=== PATIENT | male | born 1985 | race Caucasian/White ===

== ENCOUNTER 2017-04-29 19:26 | Emergency (ER) | payer MEDICAID ==
[2017-04-29] MEDS ORDERED: Ondansetron 4 MG/2 ML SDV IVPUSH ONE (22:28)
[2017-04-29] MEDS ORDERED: HYDROmorphone 1 MG/ML Syringe IVPUSH ONE ×2 (22:28→23:55)
[2017-04-29] MEDS ORDERED: Sodium Chloride 0.9% 1,000 ML IV SCH (22:30)
[2017-04-29] MEDS ORDERED: cefTRIAXone 1 GM in Sodium Chloride 0.9% 50 ML IV ONE (23:39)
[2017-04-29] MEDS ORDERED: Ketorolac 30 MG/ML SDV IVPUSH ONE (23:55)
--- NOTE | 2017-04-30 00:04 | EDM.PDOC ---
ED HPI GENERAL MEDICAL PROBLEM - General Chief Complaint: Upper Extremity Injury/Pain Stated Complaint: CRUSHED FINGER LT HAND Time Seen by Provider: 04/29/17 22:15 Source of Information: Reports: Patient, Family (father) History Limitations: Reports: No Limitations - History of Present Illness INITIAL COMMENTS - FREE TEXT/NARRATIVE: Left ring finger injury: this is a 31-year-old male presents emergency room with his father, he reports on 04/24/2017 he had a crush injury to the left ring finger, this happened when a part of the internal mechanism of the tire fell crushing the finger. He went to the emergency room had a x-ray which showed a fracture and dislocation of the left ring finger, laceration extensive including tendons, open fracture, and muscle laceration. This was repaired with sutures. And he was discharged to home with antibiotic Cipro by mouth twice a day and Percocet 2 tabs every 4 when necessary pain.. This happened in [place]. His father upon learning of this injury had his son flown back to [place] to receive additional care. Onset: Sudden Onset Date: 04/24/17 Onset Time: 03:00 Duration: Day(s):, Getting Worse (finger now with increased redness, pain, and edema.) Location: Reports: Other (Left ring finger) Left Hand Pain Score (Numeric/FACES): 14 - Related Data Allergies Allergy/AdvReac Type Severity Reaction Status Date / Time meperidine [From Demerol] Allergy Hives Verified 04/29/17 22:12 iv contrast Allergy Anaphylactic Uncoded 04/29/17 22:12 Shock Home Meds: Home Meds Acetaminophen/oxyCODONE [Percocet 325-5 MG] 2 tab PO Q4H PRN 04/29/17 [History] Ciprofloxacin HCl [Cipro] 500 mg PO QID 04/29/17 [History] Ibuprofen 800 mg PO ASDIRECTED PRN 04/29/17 [History] Past Medical History Cardiovascular History: Reports: Arrhythmia, Hypertension Respiratory History: Reports: Pneumothorax Genitourinary History: Reports: Renal Calculus, Other (See Below) Other Genitourinary History: right kidney reconstruction Musculoskeletal History: Reports: Other (See Below) Other Musculoskeletal History: crush injury left hand, boxer fracture right hand Neurological History: Reports: Concussion, Head Trauma, Migraines Psychiatric History: Reports: Anxiety, Depression - Infectious Disease History Infectious Disease History: Reports: Chicken Pox - Past Surgical History GI Surgical History: Reports: Cholecystectomy Male Surgical History: Reports: Renal Calculus, Other (See Below) Other Male Surgeries/Procedures: stents Social & Family History - Tobacco Use Smoking Status *Q: Current Every Day Smoker Years of Tobacco use: 14 Packs/Tins Daily: 0.5 - Caffeine Use Caffeine Use: Reports: Coffee, Soda - Recreational Drug Use Recreational Drug Use: No - Living Situation & Occupation Living situation: Reports: with Family (Lives in [facility] with his Immediate family.) Occupation: Employed Review of Systems - Review of Systems Review Of Systems: See Below Constitutional: Reports: Other (acute pain in the left ring finger) Eyes: Reports: No Symptoms Ears: Reports: No Symptoms Nose: Reports: No Symptoms Mouth/Throat: Reports: No Symptoms Respiratory: Reports: No Symptoms Cardiovascular: Reports: No Symptoms GI/Abdominal: Reports: No Symptoms Genitourinary: Reports: No Symptoms Musculoskeletal: Reports: Other (left ring finger injury, rates pain at 14 out of 10) Skin: Reports: Wound (laceration repair to left ring finger on 04/24/17) Neurological: Reports: No Symptoms Psychiatric: Reports: No Symptoms ED EXAM, GENERAL - Physical Exam Exam: See Below Exam Limited By: No Limitations General Appearance: Alert, WD/WN, Moderate Distress Eye Exam: Bilateral Eye: Normal Inspection Head: Atraumatic, Normocephalic Neck: Supple Respiratory/Chest: No Respiratory Distress Extremities: Other (Left middle finger with status post laceration repair. Finger is stiff, unable to flex finger, sutures intact, very tender to even slight touch, finger is red, dark, discolored) Neurological: Alert, Oriented, Normal Cognition Psychiatric: Normal Affect, Normal Mood Skin Exam: Erythema, Other (status post trauma; red tender to touch edema) Lymphatic: No Adenopathy Course - Vital Signs Last Recorded V/S: Last Vital Signs Temp 36.7 C 04/29/17 22:15 Pulse 77 04/29/17 22:15 Resp 20 04/29/17 22:15 BP 165/110 H 04/29/17 22:15 Pulse Ox 100 04/29/17 22:15 - Orders/Labs/Meds Orders: Active Orders 24 hr Category Date Time Status Hand Comp Min 3V Lt [CR] Stat Exams 04/29/17 22:19 Taken Sodium Chloride 0.9% [Normal Saline] 1,000 ml Med 04/29/17 22:30 Active IV ASDIRECTED Medication Orders Sodium Chloride (Normal Saline) 1,000 mls @ 999 mls/hr IV ASDIRECTED FAISAL Last Admin: 04/29/17 22:56 Dose: 999 mls/hr Labs: Laboratory Tests 04/29/17 04/29/17 Range/Units 22:29 22:29 WBC 12.2 H (4.5-11.0) K/uL RBC 5.16 (4.30-5.90) M/uL Hgb 14.8 (12.0-15.0) g/dL Hct 43.4 (40.0-54.0) % MCV 84 (80-98) fL MCH 29 (27-31) pg MCHC 34 (32-36) % Plt Count 398 (150-400) K/uL Neut % (Auto) 70 H (36-66) % Lymph % (Auto) 21 L (24-44) % Reeves % (Auto) 8 H (2-6) % Eos % (Auto) 1 L (2-4) % Baso % (Auto) 0 (0-1) % Sodium 143 (140-148) mmol/L Potassium 3.4 L (3.6-5.2) mmol/L Chloride 107 (100-108) mmol/L Carbon Dioxide 26 (21-32) mmol/L Anion Gap 13.4 (5.0-14.0) mmol/L BUN 10 (7-18) mg/dL Creatinine 0.9 (0.8-1.3) mg/dL Est Cr Clr Drug Dosing 131.73 mL/min Estimated GFR (MDRD) > 60 (>60) Glucose 98 (74-106) mg/dL Calcium 9.4 (8.5-10.1) mg/dL Meds: Medications Generic Name Dose Route Start Last Admin Trade Name Freq PRN Reason Stop Dose Admin Sodium Chloride 1,000 mls @ 999 mls/hr 04/29/17 22:30 04/29/17 22:56 Normal Saline IV 999 mls/hr ASDIRECTED FAISAL Administration Discontinued Medications Generic Name Dose Route Start Last Admin Trade Name Freq PRN Reason Stop Dose Admin Bacitracin 1 dose 04/30/17 00:27 Bacitracin Oint 1 Gm TOP 04/30/17 00:28 ONETIME ONE Hydromorphone HCl 1 mg 04/29/17 22:28 04/29/17 22:57 Dilaudid IVPUSH 04/29/17 22:29 1 mg ONETIME ONE Administration Hydromorphone HCl 1 mg 04/29/17 23:55 04/30/17 00:10 Dilaudid IVPUSH 04/29/17 23:56 1 mg ONETIME ONE Administration Ceftriaxone Sodium 1 gm/ 50 mls @ 100 mls/hr 04/29/17 23:39 04/29/17 23:46 Sodium Chloride IV 04/30/17 00:08 100 mls/hr ONETIME ONE Administration Ketorolac Tromethamine 30 mg 04/29/17 23:55 04/30/17 00:14 Toradol IVPUSH 04/29/17 23:56 30 mg ONETIME ONE Administration Ondansetron HCl 4 mg 04/29/17 22:28 04/29/17 22:56 Zofran IVPUSH 04/29/17 22:29 4 mg ONETIME ONE Administration - Re-Assessments/Exams Free Text/Narrative Re-Assessment/Exam: X-ray, labs, IV fluids, IV Rocephin, IV pain control Departure - Departure Time of Disposition: 01:04 Disposition: Home, Self-Care 01 Condition: Fair Clinical Impression: Laceration of flexor muscle, fascia and tendon of left ring finger at wrist and hand level, sequela Crushing injury of left hand Qualifiers: Encounter type: subsequent encounter Qualified Code(s): S67.22XD - Crushing injury of left hand, subsequent encounter - Discharge Information Referrals: PCP,None [Primary Care Provider] - Forms: ED Department Discharge Care Plan Goals: subsequent left ring finger injury laceration involving tendons, fascia -injury date 04/24/2017 -Initial care at emergency room in [place], laceration repair At [facility] in [facility] -Rocephin 1 g IV -IV Dilaudid 1 mg x 2 -IV Toradol 30mg -apply bulky dressing -labs; CBC, BMP -Imaging; Xray 3 view of left hand Advise to call [facility] Hand Surgeon in morning for consult and further care discharge to home with Father, home medications; Percocet 5-325mg; 2tabs every 4 to 6 hours as needed for pain #15 - Problem List & Annotations (1) Crushing injury of left hand SNOMED Code(s): 42265098 Code(s): S67.22XA - CRUSHING INJURY OF LEFT HAND, INITIAL ENCOUNTER Status : Acute Priority: High Current Visit: Yes Qualifiers: Encounter type: subsequent encounter Qualified Code(s): S67.22XD - Crushing injury of left hand, subsequent encounter (2) Laceration of flexor muscle, fascia and tendon of left ring finger at wrist and hand level, sequela SNOMED Code(s): 779568207 Code(s): S66.125S - LACERAT FLEXOR MUSC/FASC/TEND L RNG FNGR AT WRS/HND LV, SQLA Status: Acute Priority: High Current Visit: Yes - Problem List Review Problem List Initiated/Reviewed/Updated: Yes - My Orders Last 24 Hours: My Active Orders 04/29/17 22:19 Hand Comp Min 3V Lt [CR] Stat 04/29/17 22:30 Sodium Chloride 0.9% [Normal Saline] 1,000 ml IV ASDIRECTED - Assessment/Plan Last 24 Hours: My Active Orders 04/29/17 22:19 Hand Comp Min 3V Lt [CR] Stat 04/29/17 22:30 Sodium Chloride 0.9% [Normal Saline] 1,000 ml IV ASDIRECTED Plan: subsequent left ring finger injury laceration involving tendons, fascia -injury date 04/24/2017 -Initial care at emergency room in [place], laceration repair At [facility] in [facility] [place] -Rocephin 1 g IV -IV Dilaudid 1 mg x 2 -IV Toradol 30mg -apply bulky dressing -labs; CBC, BMP -Imaging; Xray 3 view of left hand Advise to call [facility] Hand Surgeon in morning for consult and further care discharge to home with Father, home medications; Percocet 5-325mg; 2tabs every 4 to 6 hours as needed for pain #15
[2017-04-30] MEDS ORDERED: Bacitracin Oint 1 GM U/D Packet TOP ONE (00:27)
[2017-04-30] MEDS ORDERED: Acetaminophen/oxyCODONE 325-5 MG Tab PO PRN (01:41)
--- NOTE | 2017-04-30 09:55 | CR ---
Displaced fracture at the fourth distal phalanx extending to the base. Multiple tiny radiodensities a bout the fracture can indicate foreign bodies as well. Third distal phalanx is intact.
== END 2017-04-30 01:40 | disposition home or self-care (01) ==
LOC: JP.ED 19:26
DX: S66.125 Laceration of flexor muscle, fascia and tendon of left ring finger at wrist and hand level (principal); S67.22XD Crushing injury of left hand, subsequent encounter; I10 Essential (primary) hypertension; F17.210 Nicotine dependence, cigarettes, uncomplicated; Z88.8 Allergy status to other drugs, medicaments and biological substances; W23.1XXD Caught, crushed, jammed, or pinched between stationary objects, subsequent encounter
CPT/HCPCS: 36415; 73130; 80048; 85025; 96361; 96365; 96375; 96376; 99284; A9270; J0696; J1170; J1885; J2405; J7040; J7050; 99283

== ENCOUNTER 2017-08-21 16:06 | Emergency (ER) | payer MEDICAID ==
[2017-08-21] MEDS ORDERED: HYDROmorphone 0.5 MG/0.5 ML Syringe IVPUSH ONE (17:29)
[2017-08-21] MEDS ORDERED: Sodium Chloride 0.9% 1,000 ML IV SCH (17:30)
[2017-08-21] MEDS ORDERED: Ondansetron 4 MG/2 ML SDV ONE (17:42)
[2017-08-21] MEDS ORDERED: Ondansetron 4 MG/2 ML SDV IVPUSH ONE (17:43)
--- NOTE | 2017-08-21 17:44 | EDM.PDOC ---
<OfficerRoderick - Last Filed: 08/21/17 20:40> ED HPI GENERAL MEDICAL PROBLEM - General Chief Complaint: General Stated Complaint: DIZZY,CHEST PRESSURE,LEFT ARM PAIN Time Seen by Provider: 08/21/17 20:46 - Related Data Allergies Allergy/AdvReac Type Severity Reaction Status Date / Time meperidine [From Demerol] Allergy Hives Verified 08/21/17 19:35 iv contrast Allergy Anaphylactic Uncoded 08/21/17 19:35 Shock Home Meds: Home Meds Cyanocobalamin (Vitamin B-12) [Vitamin B-12] 1 tab PO DAILY 08/21/17 [History] Gabapentin [Neurontin] 1 tab PO TID 08/21/17 [History] PARoxetine HCl [Paroxetine HCl] 1 tab PO DAILY 08/21/17 [History] Propranolol HCl [Propranolol HCl] 1 tab PO TID 08/21/17 [History] clonazePAM [Clonazepam] 1 tab PO TID PRN 08/21/17 [History] risperiDONE [risperiDONE] 1 tab PO DAILY 08/21/17 [History] ED ROS GENERAL - Review of Systems Review Of Systems: ROS reveals no pertinent complaints other than HPI. ED EXAM, GENERAL - Physical Exam Exam: See Below Exam Limited By: No Limitations General Appearance: Alert, WD/WN, No Apparent Distress Head: Atraumatic, Normocephalic Neck: Normal Inspection, Supple, Non-Tender, Full Range of Motion Respiratory/Chest: No Respiratory Distress, Lungs Clear, Normal Breath Sounds, No Accessory Muscle Use, Chest Non-Tender Cardiovascular: Regular Rate, Rhythm, No Murmur GI/Abdominal: Soft, Tender (Right flank) (Male) Exam: No Hernia, Normal Inspection, Scrotum Tenderness (R), Testicular Tenderness (R) Course - Vital Signs Last Recorded V/S: Last Vital Signs Temp 36.0 C 08/21/17 20:52 Pulse 66 08/21/17 20:52 Resp 16 08/21/17 20:52 BP 145/90 H 08/21/17 20:52 Pulse Ox 97 08/21/17 20:52 Orthostatic Blood Pressure [ 136/80 Standing] Orthostatic Blood Pressure [ 120/74 Supine] - Orders/Labs/Meds Orders: Active Orders 24 hr Category Date Time Status EKG Documentation Completion [RC] ASDIRECTED Care 08/21/17 17:21 Active Orthostatic Vital Signs [RC] ASDIRECTED Care 08/21/17 17:28 Active Abdomen Pelvis wo Cont [CT] Stat Exams 08/21/17 19:33 Taken Scrotum and Contents [US] Stat Exams 08/21/17 18:17 Ordered EKG 12 Lead [EK] Routine Ther 08/21/17 17:21 Ordered Labs: Laboratory Tests 08/21/17 08/21/17 08/21/17 Range/Units 16:59 17:21 17:21 WBC 7.0 (4.5-11.0) K/uL RBC 4.77 (4.30-5.90) M/uL Hgb 14.5 (12.0-15.0) g/dL Hct 41.8 (40.0-54.0) % MCV 88 (80-98) fL MCH 30 (27-31) pg MCHC 35 (32-36) % Plt Count 255 (150-400) K/uL Neut % (Auto) 47 (36-66) % Lymph % (Auto) 43 (24-44) % Carlisle % (Auto) 8 H (2-6) % Eos % (Auto) 2 (2-4) % Baso % (Auto) 0 (0-1) % Sodium (140-148) mmol/L Potassium (3.6-5.2) mmol/L Chloride (100-108) mmol/L Carbon Dioxide (21-32) mmol/L Anion Gap (5.0-14.0) mmol/L BUN (7-18) mg/dL Creatinine (0.8-1.3) mg/dL Est Cr Clr Drug Dosing mL/min Estimated GFR (MDRD) (>60) Glucose (74-106) mg/dL Calcium (8.5-10.1) mg/dL Total Bilirubin (0.2-1.0) mg/dL AST (15-37) U/L ALT (12-78) U/L Alkaline Phosphatase (46-116) U/L Troponin I < 0.017 (0.000-0.056) ng/mL C-Reactive Protein (0.0-0.3) mg/dL Total Protein (6.4-8.2) g/dL Albumin (3.4-5.0) g/dL Globulin (2.3-3.5) g/dL Albumin/Globulin Ratio (1.2-2.2) Urine Color Yellow Urine Appearance Clear Urine pH 6.5 (4.5-8.0) Ur Specific Melcroft 1.015 (1.008-1.030) Urine Protein Negative (NEGATIVE) mg/dL Urine Glucose (UA) Normal (NEGATIVE) mg/dL Urine Ketones Negative (NEGATIVE) mg/dL Urine Occult Blood Negative (NEGATIVE) Urine Nitrite Negative (NEGAITVE) Urine Bilirubin Negative (NEGATIVE) Urine Urobilinogen Normal (NORMAL) mg/dL Ur Leukocyte Esterase Negative (NEGATIVE) Urine RBC 0-5 (0-5) Urine WBC Not seen (0-5) Ur Epithelial Cells Not seen Amorphous Sediment Not seen Urine Bacteria Not seen Urine Mucus Not seen 08/21/17 Range/Units 17:21 WBC (4.5-11.0) K/uL RBC (4.30-5.90) M/uL Hgb (12.0-15.0) g/dL Hct (40.0-54.0) % MCV (80-98) fL MCH (27-31) pg MCHC (32-36) % Plt Count (150-400) K/uL Neut % (Auto) (36-66) % Lymph % (Auto) (24-44) % Carlisle % (Auto) (2-6) % Eos % (Auto) (2-4) % Baso % (Auto) (0-1) % Sodium 142 (140-148) mmol/L Potassium 4.0 (3.6-5.2) mmol/L Chloride 106 (100-108) mmol/L Carbon Dioxide 28 (21-32) mmol/L Anion Gap 8.5 (5.0-14.0) mmol/L BUN 11 (7-18) mg/dL Creatinine 0.9 (0.8-1.3) mg/dL Est Cr Clr Drug Dosing 134.40 mL/min Estimated GFR (MDRD) > 60 (>60) Glucose 94 (74-106) mg/dL Calcium 9.1 (8.5-10.1) mg/dL Total Bilirubin 0.4 (0.2-1.0) mg/dL AST 21 (15-37) U/L ALT 42 (12-78) U/L Alkaline Phosphatase 64 (46-116) U/L Troponin I (0.000-0.056) ng/mL C-Reactive Protein 0.16 (0.0-0.3) mg/dL Total Protein 6.8 (6.4-8.2) g/dL Albumin 4.1 (3.4-5.0) g/dL Globulin 2.7 (2.3-3.5) g/dL Albumin/Globulin Ratio 1.5 (1.2-2.2) Urine Color Urine Appearance Urine pH (4.5-8.0) Ur Specific Melcroft (1.008-1.030) Urine Protein (NEGATIVE) mg/dL Urine Glucose (UA) (NEGATIVE) mg/dL Urine Ketones (NEGATIVE) mg/dL Urine Occult Blood (NEGATIVE) Urine Nitrite (NEGAITVE) Urine Bilirubin (NEGATIVE) Urine Urobilinogen (NORMAL) mg/dL Ur Leukocyte Esterase (NEGATIVE) Urine RBC (0-5) Urine WBC (0-5) Ur Epithelial Cells Amorphous Sediment Urine Bacteria Urine Mucus Meds: Medications Discontinued Medications Generic Name Dose Route Start Last Admin Trade Name Luisq PRN Reason Stop Dose Admin Ceftriaxone Sodium 250 mg 08/21/17 20:43 Rocephin IM 08/21/17 20:44 ONETIME ONE Ceftriaxone Sodium 250 mg 08/21/17 20:57 08/21/17 21:10 Rocephin IVPUSH 08/21/17 20:58 250 mg ONETIME ONE Administration Hydromorphone HCl 0.5 mg 08/21/17 17:29 08/21/17 17:52 Dilaudid IVPUSH 08/21/17 17:30 0.5 mg ONETIME ONE Administration Sodium Chloride 1,000 mls @ 999 mls/hr 08/21/17 17:30 08/21/17 17:52 Normal Saline IV 999 mls/hr ASDIRECTED FAISAL Administration Sodium Chloride Confirm 08/21/17 21:04 Normal Saline Administered 08/21/17 21:05 Dose 50 mls @ as directed .ROUTE .STK-MED ONE Ketorolac Tromethamine 30 mg 08/21/17 18:23 08/21/17 18:29 Toradol IVPUSH 08/21/17 18:24 30 mg ONETIME ONE Administration Ondansetron HCl 4 mg 08/21/17 17:43 08/21/17 17:52 Zofran IVPUSH 08/21/17 17:44 4 mg ONETIME ONE Administration Ondansetron HCl Confirm 08/21/17 17:42 Zofran Administered 08/21/17 17:43 Dose 4 mg .ROUTE .STK-MED ONE - Re-Assessments/Exams Free Text/Narrative Re-Assessment/Exam: 08/21/17 18:20 took over care from Dr. Rendon pt still c/o chest pain, dizzy and left tentacular pain, history of epididymitis Examination of the testes I don't appreciate any marked edema there is no erythema noted he does get relief the pain with elevation of the right testicle , he also complains of some right flank pain as well 08/21/17 19:33 Departure - Departure Time of Disposition: 20:45 Disposition: Home, Self-Care 01 Condition: Good Clinical Impression: Epididymitis - Discharge Information Instructions: Epididymitis Referrals: Teresa Holcomb PA [Primary Care Provider] - Forms: ED Department Discharge Additional Instructions: Take full course of antibiotics, use hydrocodone as needed for pain control, Please followup with your primary care provider in 3-5 days if not better, please call return to the emergency department with worsening of symptoms. - My Orders Last 24 Hours: My Active Orders 08/21/17 17:21 EKG Documentation Completion [RC] ASDIRECTED EKG 12 Lead [EK] Routine 08/21/17 17:28 Orthostatic Vital Signs [RC] ASDIRECTED - Assessment/Plan Last 24 Hours: My Active Orders 08/21/17 17:21 EKG Documentation Completion [RC] ASDIRECTED EKG 12 Lead [EK] Routine 08/21/17 17:28 Orthostatic Vital Signs [RC] ASDIRECTED Plan: Assessment Acuity = acute Site and laterality = 1 and 2 mm nonobstructing stones on the right side Etiology = unclear etiology Manifestations = chest pain, flank pain, testicular pain, dizziness and lightheaded probably related to propranolol Location of injury = Home Lab values = CBC, CMP, urinalysis, troponin negative EKG demonstrates normal sinus rhythm ultrasound of the testicles shows a hydrocele otherwise no acute process CT scan of the abdomen reveals nonobstructing stones Plan Given his history of epididymitis being negative on ultrasound although he doesn 't have a white count he does have clinical signs consistent with epididymitis, we'll treat with ceftriaxone 250 mg IM 1+ doxycycline 100 mg by mouth twice a day 7 days, total number of 10 for hydrocodone 5/325 one tab by mouth 3 times a day him follow-up primary care in 3-5 days improvement This note was dictated using [employer] voice recognition software please call with any questions on syntax or marva. <Leigh Rendon - Last Filed: 08/22/17 07:15> ED HPI GENERAL MEDICAL PROBLEM - General Source of Information: Reports: Patient History Limitations: Reports: No Limitations - History of Present Illness INITIAL COMMENTS - FREE TEXT/NARRATIVE: Pt arrived complaining of dizziness and having left flank pain. He also has chronic pain in both testicles. he has had epididimytis and has calcifications in his epididymits . He was started on 4 new psych meds and he thinks some of the dizziness may be from that. Duration: Hour(s):, Getting Worse Location: Reports: Abdomen, Other ( groin area. ) Quality: Reports: Sharp, Stabbing Severity: Moderate Associated Symptoms: Reports: Other (Pt is having marked dizziness) Past Medical History Cardiovascular History: Reports: Arrhythmia, Hypertension Respiratory History: Reports: Pneumothorax Genitourinary History: Reports: Renal Calculus, Other (See Below) Other Genitourinary History: right kidney reconstruction Musculoskeletal History: Reports: Other (See Below) Other Musculoskeletal History: crush injury left hand, boxer fracture right hand Neurological History: Reports: Concussion, Head Trauma, Migraines Psychiatric History: Reports: Anxiety, Depression - Infectious Disease History Infectious Disease History: Reports: Chicken Pox - Past Surgical History GI Surgical History: Reports: Cholecystectomy Male Surgical History: Reports: Renal Calculus, Other (See Below) Other Male Surgeries/Procedures: stents Social & Family History - Tobacco Use Smoking Status *Q: Current Every Day Smoker Years of Tobacco use: 12 Packs/Tins Daily: 0.5 - Caffeine Use Caffeine Use: Reports: Coffee, Soda - Recreational Drug Use Recreational Drug Use: No - Living Situation & Occupation Living situation: Reports: with Family (Lives in [facility] with his Immediate family.) Occupation: Employed ED ROS GENERAL - Review of Systems Review Of Systems: See Below Constitutional: Reports: No Symptoms HEENT: Reports: No Symptoms Respiratory: Reports: No Symptoms Cardiovascular: Reports: No Symptoms Endocrine: Reports: No Symptoms GI/Abdominal: Reports: Abdominal Pain, Other (Pt is having pain in his left flank) : Reports: Flank Pain Musculoskeletal: Reports: No Symptoms Neurological: Reports: Dizziness, Headache Psychiatric: Reports: Anxiety Hematologic/Lymphatic: Reports: No Symptoms ED EXAM, GENERAL - Physical Exam Free Text/Narrative:: pt arrived with left flank pain, pain in the testicles and dizziness. He has just been started on 4 new pscych meds. Exam Limited By: No Limitations General Appearance: Alert, Moderate Distress Ears: Normal TMs Nose: Normal Inspection Throat/Mouth: Normal Inspection Head: Atraumatic Neck: Normal Inspection Respiratory/Chest: No Respiratory Distress Cardiovascular: Regular Rate, Rhythm, No Murmur Back Exam: Normal Inspection Extremities: Normal Inspection Neurological: Alert, Oriented, Normal Cognition Psychiatric: Anxious Course - Re-Assessments/Exams Free Text/Narrative Re-Assessment/Exam: 08/22/17 07:14 Dr Officer took over his care.
[2017-08-21] MEDS ORDERED: Ketorolac 30 MG/ML SDV IVPUSH ONE (18:23)
[2017-08-21] MEDS ORDERED: cefTRIAXone 500 MG Vial IM ONE (20:43)
[2017-08-21] MEDS ORDERED: cefTRIAXone 500 MG Vial IVPUSH ONE (20:57)
[2017-08-21] MEDS ORDERED: Sodium Chloride 0.9% 50 ML ONE (21:04)
== END 2017-08-21 21:30 | disposition home or self-care (01) ==
LOC: JP.ED 16:06
DX: N45.1 Epididymitis (principal); N20.0 Calculus of kidney; R07.9 Chest pain, unspecified; I10 Essential (primary) hypertension; F17.210 Nicotine dependence, cigarettes, uncomplicated; Z88.5 Allergy status to narcotic agent; Z91.041 Radiographic dye allergy status; Z79.899 Other long term (current) drug therapy; Z90.49 Acquired absence of other specified parts of digestive tract
CPT/HCPCS: 36415; 74176; 76870; 80053; 81001; 84484; 85025; 86140; 96372; 96374; 99284; J0696; J1170; J1885; J2405; J7040

== ENCOUNTER 2017-08-24 12:27 | Emergency (ER) | payer MEDICAID ==
--- NOTE | 2017-08-24 14:12 | EDM.PDOC ---
ED HPI GENERAL MEDICAL PROBLEM - General Chief Complaint: Abdominal Pain Stated Complaint: PAIN IN RIGHT ABD GOING INTO GROIN Time Seen by Provider: 08/24/17 13:15 Source of Information: Reports: Patient History Limitations: Reports: No Limitations - History of Present Illness INITIAL COMMENTS - FREE TEXT/NARRATIVE: 32-year-old male in with complaints of abdominal pain, especially right-sided. Crampy in nature, he has persistent nausea but no vomiting. He was in the emergency room 3 days ago and worked up for testicular pain and lower abdominal pain, felt to have epididymitis and placed on doxycycline after IV doses of ceftriaxone. He thought it was a little better yesterday but today was unable to work because the pain was worsening, it is different than what he had 3 days ago. Onset: Gradual Location: Reports: Abdomen Quality: Reports: Ache, Sharp Severity: Moderate Worsens with: Reports: Movement Associated Symptoms: Reports: Nausea/Vomiting (Nausea but no vomiting). Denies : Fever/Chills, Shortness of Breath Right Lower Abdomen Pain Score (Numeric/FACES): 10 - Related Data Allergies Allergy/AdvReac Type Severity Reaction Status Date / Time meperidine [From Demerol] Allergy Hives Verified 08/21/17 19:35 iv contrast Allergy Severe Anaphylactic Uncoded 08/22/17 09:05 Shock Home Meds: Home Meds Cyanocobalamin (Vitamin B-12) [Vitamin B-12] 1 tab PO DAILY 08/21/17 [History] Gabapentin [Neurontin] 1 tab PO TID 08/21/17 [History] PARoxetine HCl [Paroxetine HCl] 1 tab PO DAILY 08/21/17 [History] Propranolol HCl [Propranolol HCl] 1 tab PO TID 08/21/17 [History] clonazePAM [Clonazepam] 1 tab PO TID PRN 08/21/17 [History] risperiDONE [risperiDONE] 1 tab PO DAILY 08/21/17 [History] Past Medical History Cardiovascular History: Reports: Arrhythmia, Hypertension Respiratory History: Reports: Pneumothorax Genitourinary History: Reports: Renal Calculus, Other (See Below) Other Genitourinary History: right kidney reconstruction Musculoskeletal History: Reports: Other (See Below) Other Musculoskeletal History: crush injury left hand, boxer fracture right hand Neurological History: Reports: Concussion, Head Trauma, Migraines Psychiatric History: Reports: Anxiety, Depression - Infectious Disease History Infectious Disease History: Reports: Chicken Pox - Past Surgical History GI Surgical History: Reports: Cholecystectomy Male Surgical History: Reports: Renal Calculus, Other (See Below) Other Male Surgeries/Procedures: stents Social & Family History - Tobacco Use Smoking Status *Q: Current Every Day Smoker Years of Tobacco use: 12 Packs/Tins Daily: 0.5 - Caffeine Use Caffeine Use: Reports: Coffee, Soda - Recreational Drug Use Recreational Drug Use: No - Living Situation & Occupation Living situation: Reports: with Family (Lives in [facility] with his Immediate family.) Occupation: Employed ED ROS GENERAL - Review of Systems Review Of Systems: See Below Constitutional: Reports: Malaise. Denies: Fever, Chills HEENT: Reports: No Symptoms Respiratory: Denies: Shortness of Breath Cardiovascular: Denies: Chest Pain Endocrine: Denies: Fatigue GI/Abdominal: Reports: Abdominal Pain, Nausea. Denies: Vomiting : Reports: No Symptoms Musculoskeletal: Reports: No Symptoms Skin: Reports: No Symptoms Neurological: Reports: No Symptoms ED EXAM, GI/ABD - Physical Exam Exam: See Below Exam Limited By: No Limitations General Appearance: Alert, No Apparent Distress (Appears uncomfortable but not distressed) Eyes: Bilateral: Normal Appearance (No jaundice) Respiratory/Chest: No Respiratory Distress, Lungs Clear Cardiovascular: Regular Rate, Rhythm GI/Abdominal Exam: Normal Bowel Sounds, Soft, Tender (Patient does have tenderness to palpation along the right abdomen into the right lower quadrant, a small amount of peritoneal irritability is present) Extremities: No: Pedal Edema Neurological: Alert, Oriented Psychiatric: Flat Affect Skin Exam: Warm, Dry Course - Vital Signs Last Recorded V/S: Last Vital Signs Temp 97.1 F 08/24/17 13:03 Pulse 65 08/24/17 13:03 Resp 16 08/24/17 13:03 BP 147/98 H 08/24/17 13:03 Pulse Ox 99 08/24/17 13:03 - Orders/Labs/Meds Labs: Laboratory Tests 08/24/17 08/24/17 08/24/17 Range/Units 13:33 13:41 13:41 WBC 7.8 (4.5-11.0) K/uL RBC 4.75 (4.30-5.90) M/uL Hgb 14.5 (12.0-15.0) g/dL Hct 42.3 (40.0-54.0) % MCV 89 (80-98) fL MCH 31 (27-31) pg MCHC 34 (32-36) % Plt Count 238 (150-400) K/uL Neut % (Auto) 64 (36-66) % Lymph % (Auto) 29 (24-44) % Morton % (Auto) 5 (2-6) % Eos % (Auto) 3 (2-4) % Baso % (Auto) 0 (0-1) % Sodium 142 (140-148) mmol/L Potassium 4.5 (3.6-5.2) mmol/L Chloride 106 (100-108) mmol/L Carbon Dioxide 28 (21-32) mmol/L Anion Gap 7.6 (5.0-14.0) mmol/L BUN 13 (7-18) mg/dL Creatinine 1.0 (0.8-1.3) mg/dL Est Cr Clr Drug Dosing 120.96 mL/min Estimated GFR (MDRD) > 60 (>60) Glucose 100 (74-106) mg/dL Lactic Acid (0.4-2.0) mmol/L Calcium 9.4 (8.5-10.1) mg/dL Urine Color Yellow Urine Appearance Clear Urine pH 6.0 (4.5-8.0) Ur Specific [place] 1.010 (1.008-1.030) Urine Protein Negative (NEGATIVE) mg/dL Urine Glucose (UA) Normal (NEGATIVE) mg/dL Urine Ketones Negative (NEGATIVE) mg/dL Urine Occult Blood Negative (NEGATIVE) Urine Nitrite Negative (NEGAITVE) Urine Bilirubin Negative (NEGATIVE) Urine Urobilinogen Normal (NORMAL) mg/dL Ur Leukocyte Esterase Negative (NEGATIVE) Urine RBC Not seen (0-5) Urine WBC Not seen (0-5) Ur Epithelial Cells Not seen Amorphous Sediment Not seen Urine Bacteria Not seen Urine Mucus Rare 08/24/17 Range/Units 13:41 WBC (4.5-11.0) K/uL RBC (4.30-5.90) M/uL Hgb (12.0-15.0) g/dL Hct (40.0-54.0) % MCV (80-98) fL MCH (27-31) pg MCHC (32-36) % Plt Count (150-400) K/uL Neut % (Auto) (36-66) % Lymph % (Auto) (24-44) % Morton % (Auto) (2-6) % Eos % (Auto) (2-4) % Baso % (Auto) (0-1) % Sodium (140-148) mmol/L Potassium (3.6-5.2) mmol/L Chloride (100-108) mmol/L Carbon Dioxide (21-32) mmol/L Anion Gap (5.0-14.0) mmol/L BUN (7-18) mg/dL Creatinine (0.8-1.3) mg/dL Est Cr Clr Drug Dosing mL/min Estimated GFR (MDRD) (>60) Glucose (74-106) mg/dL Lactic Acid 1.2 (0.4-2.0) mmol/L Calcium (8.5-10.1) mg/dL Urine Color Urine Appearance Urine pH (4.5-8.0) Ur Specific [place] (1.008-1.030) Urine Protein (NEGATIVE) mg/dL Urine Glucose (UA) (NEGATIVE) mg/dL Urine Ketones (NEGATIVE) mg/dL Urine Occult Blood (NEGATIVE) Urine Nitrite (NEGAITVE) Urine Bilirubin (NEGATIVE) Urine Urobilinogen (NORMAL) mg/dL Ur Leukocyte Esterase (NEGATIVE) Urine RBC (0-5) Urine WBC (0-5) Ur Epithelial Cells Amorphous Sediment Urine Bacteria Urine Mucus - Re-Assessments/Exams Free Text/Narrative Re-Assessment/Exam: 08/24/17 14:24 UA was rechecked and is normal, CBC is normal CMP normal along with a lactic acid. Reviewed his records from 3 days ago, recommended he stop the doxycycline as he may be having some side effects to the medication. There is no evidence of infection. He can return in the next 24-48 hours if not improving and we may have to CT his abdomen a second time. Departure - Departure Time of Disposition: 14:35 Disposition: Home, Self-Care 01 Condition: Good Clinical Impression: Abdominal pain Qualifiers: Abdominal location: right lower quadrant Qualified Code(s): R10.31 - Right lower quadrant pain - Discharge Information Instructions: Abdominal Pain, Adult, [id number] Referrals: PCP,None [Primary Care Provider] - Forms: ED Department Discharge Care Plan Goals: Stop doxycycline, rest today and advance diet as tolerated. Recheck in 2-3 days if not improving satisfactorily, or return if worsening such as fever or vomiting.
== END 2017-08-24 14:36 | disposition home or self-care (01) ==
LOC: JP.ED 12:27
DX: R10.31 Right lower quadrant pain (principal); I10 Essential (primary) hypertension; F17.210 Nicotine dependence, cigarettes, uncomplicated; Z91.041 Radiographic dye allergy status; Z88.8 Allergy status to other drugs, medicaments and biological substances; Z79.899 Other long term (current) drug therapy
CPT/HCPCS: 36415; 80048; 81001; 83605; 85025; 99284

== ENCOUNTER 2017-08-26 23:25 | Observation (INO) | payer MEDICAID ==
[2017-08-27] MEDS ORDERED: Haloperidol Lactate 5 MG/ML SDV IVPUSH ONE (00:04)
[2017-08-27] MEDS ORDERED: HYDROmorphone 0.5 MG/0.5 ML Syringe IVPUSH ONE (00:05)
--- NOTE | 2017-08-27 00:13 | EDM.PDOC ---
ED HPI GENERAL MEDICAL PROBLEM - General Chief Complaint: Gastrointestinal Problem Stated Complaint: ABD PAIN Time Seen by Provider: 08/26/17 23:50 Source of Information: Reports: Patient, Family History Limitations: Reports: No Limitations - History of Present Illness INITIAL COMMENTS - FREE TEXT/NARRATIVE: 32-year-old male with several days of persistent abdominal pain, nausea and vomiting. He's been evaluated in 3 emergency rooms and in the clinic at least once. [address] scans which were "normal", labs up in [place] were normal and he's been afebrile. Today however he started vomiting blood, initially coffee ground and prior to coming into the ER said it was "clots". Pain is persistent, diffuse abdominal pain with cramping. Location: Reports: Abdomen Severity: Moderate Improves with: Reports: None Associated Symptoms: Reports: Malaise, Nausea/Vomiting. Denies: Chest Pain, Cough, Fever/Chills, Shortness of Breath abd Pain Score (Numeric/FACES): 9 - Related Data Allergies Allergy/AdvReac Type Severity Reaction Status Date / Time meperidine [From Demerol] Allergy Hives Verified 08/26/17 23:47 iv contrast Allergy Severe Anaphylactic Uncoded 08/26/17 23:47 Shock Home Meds: Home Meds Cyanocobalamin (Vitamin B-12) [Vitamin B-12] 1 tab PO DAILY 08/21/17 [History] Gabapentin [Neurontin] 1 tab PO TID 08/21/17 [History] PARoxetine HCl [Paroxetine HCl] 1 tab PO DAILY 08/21/17 [History] Propranolol HCl [Propranolol HCl] 1 tab PO TID 08/21/17 [History] clonazePAM [Clonazepam] 1 tab PO TID PRN 08/21/17 [History] risperiDONE [risperiDONE] 1 tab PO DAILY 08/21/17 [History] Past Medical History Cardiovascular History: Reports: Arrhythmia, Hypertension Respiratory History: Reports: Pneumothorax Genitourinary History: Reports: Renal Calculus, Other (See Below) Other Genitourinary History: right kidney reconstruction Musculoskeletal History: Reports: Other (See Below) Other Musculoskeletal History: crush injury left hand, boxer fracture right hand Neurological History: Reports: Concussion, Head Trauma, Migraines Psychiatric History: Reports: Anxiety, Depression - Infectious Disease History Infectious Disease History: Reports: Chicken Pox - Past Surgical History GI Surgical History: Reports: Cholecystectomy Male Surgical History: Reports: Renal Calculus, Other (See Below) Other Male Surgeries/Procedures: stents Social & Family History - Tobacco Use Smoking Status *Q: Current Every Day Smoker Years of Tobacco use: 18 Packs/Tins Daily: 0.5 - Caffeine Use Caffeine Use: Reports: Coffee, Energy Drinks, Soda - Alcohol Use Days Per Week of Alcohol Use: 1 Number of Drinks Per Day: 4 Total Drinks Per Week: 4 - Recreational Drug Use Recreational Drug Use: No - Living Situation & Occupation Living situation: Reports: with Family (Lives in [facility] with his Immediate family.) Occupation: Employed ED ROS GENERAL - Review of Systems Review Of Systems: See Below Constitutional: Reports: Malaise. Denies: Fever, Chills Respiratory: Denies: Shortness of Breath Cardiovascular: Denies: Chest Pain GI/Abdominal: Reports: Abdominal Pain, Nausea, Vomiting : Reports: Other (Patient also has chronic testicular pain) Musculoskeletal: Reports: No Symptoms Skin: Reports: No Symptoms Neurological: Denies: Headache Psychiatric: Reports: Depression ED EXAM, GI/ABD - Physical Exam Exam: See Below Exam Limited By: No Limitations General Appearance: Alert, Mild Distress (Patient looks very uncomfortable, lying on his right side in a position) Eyes: Bilateral: Normal Appearance Respiratory/Chest: No Respiratory Distress, Lungs Clear Cardiovascular: Regular Rate, Rhythm GI/Abdominal Exam: Tender (He is diffusely tender to palpation over the entire abdomen, no focal tenderness), Other (Bowel sounds are somewhat hypoactive but present) Extremities: No: Pedal Edema Neurological: Alert, Oriented Psychiatric: Flat Affect Skin Exam: Warm, Dry Course - Vital Signs Last Recorded V/S: Last Vital Signs Temp 96.6 F 08/27/17 02:48 Pulse 53 L 08/27/17 02:48 Resp 18 08/27/17 02:48 BP 96/50 L 08/27/17 02:48 Pulse Ox 99 08/27/17 02:48 - Orders/Labs/Meds Orders: Medication Orders Albuterol (Proventil Neb Soln) 2.5 mg NEB Q4H PRN PRN Reason: Shortness Of Breath/wheezing Hydromorphone HCl (Dilaudid Copy Manager 15 Mg In Ns 30 Ml) 0 mg IV ASDIRECTED PRN; Protocol PRN Reason: Pain Last Admin: 08/27/17 02:27 Dose: 15 mg Lactated Ringer's (Ringers, Lactated) 1,000 mls @ 125 mls/hr IV ASDIRECTED [facility] Last Admin: 08/27/17 02:26 Dose: 125 mls/hr Naloxone HCl (Narcan) 0.4 mg IVPUSH Q2M PRN PRN Reason: Respiratory Distress Ondansetron HCl (Zofran) 4 mg IV Q4H PRN PRN Reason: Nausea/Vomiting Pantoprazole Sodium (Protonix Iv) 40 mg IVPUSH Q12H [facility] Last Admin: 08/27/17 02:26 Dose: 40 mg Labs: Laboratory Tests 08/27/17 08/27/17 Range/Units 00:01 00:03 WBC 7.7 (4.5-11.0) K/uL RBC 5.11 (4.30-5.90) M/uL Hgb 15.7 H (12.0-15.0) g/dL Hct 45.2 (40.0-54.0) % MCV 89 (80-98) fL MCH 31 (27-31) pg MCHC 35 (32-36) % Plt Count 261 (150-400) K/uL Neut % (Auto) 55 (36-66) % Lymph % (Auto) 33 (24-44) % [place] % (Auto) 10 H (2-6) % Eos % (Auto) 2 (2-4) % Baso % (Auto) 0 (0-1) % Sodium 138 L (140-148) mmol/L Potassium 4.0 (3.6-5.2) mmol/L Chloride 105 (100-108) mmol/L Carbon Dioxide 24 (21-32) mmol/L Anion Gap 13.0 (5.0-14.0) mmol/L BUN 11 (7-18) mg/dL Creatinine 0.9 (0.8-1.3) mg/dL Est Cr Clr Drug Dosing 134.40 mL/min Estimated GFR (MDRD) > 60 (>60) Glucose 101 (74-106) mg/dL Calcium 8.8 (8.5-10.1) mg/dL Amylase 19 L (25-115) U/L Lipase 86 (73-393) U/L Meds: Medications Generic Name Dose Route Start Last Admin Trade Name Freq PRN Reason Stop Dose Admin Albuterol 2.5 mg 08/27/17 01:42 Proventil Neb Soln NEB Q4H PRN Shortness Of Breath/wheezing Hydromorphone HCl 0 mg 08/27/17 01:42 08/27/17 02:27 Dilaudid Copy Manager 15 Mg In Ns 30 Ml IV 15 mg ASDIRECTED PRN Administration Pain Protocol Lactated Ringer's 1,000 mls @ 125 mls/hr 08/27/17 01:42 08/27/17 02:26 Ringers, Lactated IV 125 mls/hr ASDIRECTED FAISAL Administration Naloxone HCl 0.4 mg 08/27/17 01:42 Narcan IVPUSH Q2M PRN Respiratory Distress Ondansetron HCl 4 mg 08/27/17 01:42 Zofran IV Q4H PRN Nausea/Vomiting Pantoprazole Sodium 40 mg 08/27/17 02:00 08/27/17 02:26 Protonix Iv IVPUSH 40 mg Q12H FAISAL Administration Discontinued Medications Generic Name Dose Route Start Last Admin Trade Name Luisq PRN Reason Stop Dose Admin Haloperidol Lactate 5 mg 08/27/17 00:04 08/27/17 00:16 Haldol IVPUSH 08/27/17 00:05 5 mg ONETIME ONE Administration Hydromorphone HCl 0.5 mg 08/27/17 00:05 08/27/17 00:18 Dilaudid IVPUSH 08/27/17 00:06 0.5 mg ONETIME ONE Administration Sodium Chloride 1,000 mls @ 500 mls/hr 08/27/17 00:15 08/27/17 00:14 Normal Saline IV 500 mls/hr ASDIRECTED FAISAL Administration - Re-Assessments/Exams Free Text/Narrative Re-Assessment/Exam: 08/27/17 00:12 Amylase, lipase, CBC and BMP were rechecked. IV was started and the patient was given 5 mg of Haldol and 0.5 mg of Dilaudid along with normal saline hydration. Plan is to admit the patient for a surgical consult and EGD tomorrow. Departure - Departure Time of Disposition: 01:57 Disposition: Refer to Observation Condition: Fair Clinical Impression: Abdominal pain, Hematemesis with nausea - Discharge Information
[2017-08-27] MEDS ORDERED: Sodium Chloride 0.9% 1,000 ML IV SCH (00:15)
--- NOTE | 2017-08-27 01:07 | PCM.HP ---
H&P History of Present Illness - General Date of Service: 08/26/17 Admit Problem/Dx: Admission Diagnosis/Problem Admission Diagnosis/Problem Abdominal pain Source of Information: Patient, Family (Dad) History Limitations: Reports: No Limitations - History of Present Illness Initial Comments - Free Text/Narative: 32-year-old male with several days of persistent abdominal pain nausea and vomiting. He's been evaluated in 3 emergency rooms and in the clinic at least once. [address] scans which were "normal", labs up in stable and he's been afebrile. Today however he started vomiting blood, initially coffee ground and prior to coming into the ER said it was "clots". Pain is persistent, diffuse abdominal pain with cramping. Severity: Moderate Improves with: Reports: None Associated Symptoms: Reports: Malaise, Nausea/Vomiting. Denies: Chest Pain, Cough, Fever/Chills, Shortness of Breath abd Pain Score (Numeric/FACES): 9 08/27/17 00:12 Amylase, lipase, CBC and BMP were rechecked. IV was started and the patient was given 5 mg of Haldol and 0.5 mg of Dilaudid along with normal saline hydration. Plan is to admit the patient for a surgical consult and EGD tomorrow. Onset of Symptoms: Reports: Today Duration of Symptoms: Reports: Hour(s): Location: Reports: Abdomen Quality: Reports: Other (emesis of blood and clots prior to arrival) Severity: Moderate Improves with: Reports: None Worsens with: Reports: None Associated Symptoms: Reports: Loss of Appetite, Nausea/Vomiting abd Pain Score (Numeric/FACES): 9 - Related Data Allergies/Adverse Reactions: Allergies Allergy/AdvReac Type Severity Reaction Status Date / Time meperidine [From Demerol] Allergy Hives Verified 08/26/17 23:47 iv contrast Allergy Severe Anaphylactic Uncoded 08/26/17 23:47 Shock Home Medications: Home Meds Cyanocobalamin (Vitamin B-12) [Vitamin B-12] 1 tab PO DAILY 08/21/17 [History] Gabapentin [Neurontin] 1 tab PO TID 08/21/17 [History] PARoxetine HCl [Paroxetine HCl] 1 tab PO DAILY 08/21/17 [History] Propranolol HCl [Propranolol HCl] 1 tab PO TID 08/21/17 [History] clonazePAM [Clonazepam] 1 tab PO TID PRN 08/21/17 [History] risperiDONE [risperiDONE] 1 tab PO DAILY 08/21/17 [History] Past Medical History Cardiovascular History: Reports: Arrhythmia, Hypertension Respiratory History: Reports: Pneumothorax Genitourinary History: Reports: Renal Calculus, Other (See Below) Other Genitourinary History: right kidney reconstruction Musculoskeletal History: Reports: Other (See Below) Other Musculoskeletal History: crush injury left hand, boxer fracture right hand Neurological History: Reports: Concussion, Head Trauma, Migraines Psychiatric History: Reports: Anxiety, Depression - Infectious Disease History Infectious Disease History: Reports: Chicken Pox - Past Surgical History GI Surgical History: Reports: Cholecystectomy Male Surgical History: Reports: Renal Calculus, Other (See Below) Other Male Surgeries/Procedures: stents Social & Family History - Family History GI: Reports: Other (See Below) (Father with Blackwood's esophagus) - Tobacco Use Smoking Status *Q: Current Every Day Smoker Years of Tobacco use: 18 Packs/Tins Daily: 0.5 - Caffeine Use Caffeine Use: Reports: Coffee, Energy Drinks, Soda - Alcohol Use Days Per Week of Alcohol Use: 1 Number of Drinks Per Day: 4 Total Drinks Per Week: 4 - Recreational Drug Use Recreational Drug Use: No - Living Situation & Occupation Living situation: Reports: with Family (Lives in [facility] with his Immediate family.) Occupation: Employed H&P Review of Systems - Review of Systems: Review Of Systems: See Below General: Reports: Other (abdominal pain) HEENT: Reports: Other (upper teeth missing due to "issues" doesn't want to talk about it.) Pulmonary: Reports: No Symptoms Cardiovascular: Reports: No Symptoms Gastrointestinal: Reports: Abdominal Pain, Decreased Appetite, Hematochezia, Nausea, Vomiting Genitourinary: Reports: Other (testicular pain) Musculoskeletal: Reports: No Symptoms Skin: Reports: No Symptoms Psychiatric: Reports: No Symptoms Neurological: Reports: No Symptoms Hematologic/Lymphatic: Reports: No Symptoms Immunologic: Reports: No Symptoms Exam - Exam Exam: See Below - Vital Signs Vital Signs: Last Vital Signs Temp 36.4 C 08/26/17 23:49 Pulse 62 08/27/17 00:19 Resp 18 08/27/17 00:19 BP 133/78 08/27/17 00:19 Pulse Ox 97 08/27/17 00:19 Weight: 91.4 kg - Exam General: Cooperative, Mild Distress (laying on right side, curled up ), Sedated HEENT: PERRLA, Conjunctiva Clear, EACs Clear, EOMI, Hearing Intact, Mucosa Moist & [place], Nares Patent, Normal Nasal Septum, Posterior Pharynx Clear, Pupils Equal, Pupils Reactive, TMs Clear, Other (upper teeth missing, multi missing teeth lower jaw) Neck: Supple, Trachea Midline Lungs: Clear to Auscultation, Normal Respiratory Effort Cardiovascular: Regular Rate, Regular Rhythm, Normal S1, Normal S2 GI/Abdominal Exam: Soft, Tender (upper abdomen.), Abnormal Bowel Sounds (Male) Exam: Deferred Rectal (Males) Exam: Deferred Back Exam: Normal Inspection, Full Range of Motion Extremities: Normal Inspection, Normal Range of Motion, Non-Tender, No Pedal Edema, Normal Capillary Refill Skin: Warm, Dry, Intact, Other (multi tattoo over arms, legs, body) Neurological: Cranial Nerves Intact, Reflexes Equal Bilateral Neuro Extensive - Mental Status: Alert, Oriented x3, Normal Mood/Affect, Normal Cognition Neuro Extensive - Motor, Sensory, Reflexes: Normal Gait, Normal Reflexes Psychiatric: Alert, Anxious - Patient Data Lab Results Last 24 hrs: Laboratory Results - last 24 hr 08/27/17 08/27/17 Range/Units 00:01 00:03 WBC 7.7 (4.5-11.0) K/uL RBC 5.11 (4.30-5.90) M/uL Hgb 15.7 H (12.0-15.0) g/dL Hct 45.2 (40.0-54.0) % MCV 89 (80-98) fL MCH 31 (27-31) pg MCHC 35 (32-36) % Plt Count 261 (150-400) K/uL Neut % (Auto) 55 (36-66) % Lymph % (Auto) 33 (24-44) % [place] % (Auto) 10 H (2-6) % Eos % (Auto) 2 (2-4) % Baso % (Auto) 0 (0-1) % Sodium 138 L (140-148) mmol/L Potassium 4.0 (3.6-5.2) mmol/L Chloride 105 (100-108) mmol/L Carbon Dioxide 24 (21-32) mmol/L Anion Gap 13.0 (5.0-14.0) mmol/L BUN 11 (7-18) mg/dL Creatinine 0.9 (0.8-1.3) mg/dL Est Cr Clr Drug Dosing 134.40 mL/min Estimated GFR (MDRD) > 60 (>60) Glucose 101 (74-106) mg/dL Calcium 8.8 (8.5-10.1) mg/dL Amylase 19 L (25-115) U/L Lipase 86 (73-393) U/L Result Diagrams: 08/27/17 00:03 08/27/17 00:01 *Q Meaningful Use (ADM) - VTE *Q VTE Criteria *Q: - Stroke *Q Stroke Criteria *Q: - AMI *Q AMI Criteria *Q: - Problem List (1) Upper GI bleed SNOMED Code(s): 43037171 ICD Code: K92.2 - GASTROINTESTINAL HEMORRHAGE, UNSPECIFIED Status: Acute Priority: High Current Visit: Yes (2) Testicle trouble SNOMED Code(s): 95257813, 858603442 ICD Code: N50.9 - DISORDER OF MALE GENITAL ORGANS, UNSPECIFIED Status: Acute Priority: Low Current Visit: Yes (3) Testicle pain SNOMED Code(s): 35613266 ICD Code: N50.819 - TESTICULAR PAIN, UNSPECIFIED Status: Acute Priority: Low Current Visit: Yes (4) Abdominal pain SNOMED Code(s): 94356181 ICD Code: R10.9 - UNSPECIFIED ABDOMINAL PAIN Status: Acute Priority: High Current Visit: Yes Qualifiers: Abdominal location: epigastric Qualified Code(s): R10.13 - Epigastric pain Problem List Initiated/Reviewed/Updated: Yes Orders Last 24hrs: Active Orders 24 hr Category Date Time Status Patient Status Manage Transfer [TRANSFER] Routine ADT 08/27/17 00:42 Ordered Sodium Chloride 0.9% [Normal Saline] 1,000 ml Med 08/27/17 00:15 Active IV ASDIRECTED Resuscitation Status Routine Resus Stat 08/27/17 00:46 Ordered Medication Orders Sodium Chloride (Normal Saline) 1,000 mls @ 500 mls/hr IV ASDIRECTED FAISAL Last Admin: 08/27/17 00:14 Dose: 500 mls/hr Assessment/Plan Comment:: ASSESSMENT / PLAN -32-year-old male with several days of persistent abdominal pain nausea and vomiting. He's been evaluated in 3 emergency rooms and in the clinic at least once. [address] scans which were "normal", labs up in stable and he's been afebrile. Today however he started vomiting blood, initially coffee ground and prior to coming into the ER said it was "clots". Pain is persistent, diffuse abdominal pain with cramping. Severity: Moderate Improves with: Reports: None Associated Symptoms: Reports: Malaise, Nausea/Vomiting. Denies: Chest Pain, Cough, Fever/Chills, Shortness of Breath abd Pain Score (Numeric/FACES): 9 08/27/17 00:12 Amylase, lipase, CBC and BMP were rechecked. IV was started and the patient was given 5 mg of Haldol and 0.5 mg of Dilaudid along with normal saline hydration. Plan is to admit the patient for a surgical consult and EGD tomorrow. 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 Disposition: home with family, call his Father for discharge. Primary care provider: not listed Hospitalist: Dr. Serrano
[2017-08-27] MEDS ORDERED: Naloxone 0.4 MG/ML SDV IVPUSH PRN (01:42)
[2017-08-27] MEDS ORDERED: Lactated Ringers 1,000 ML IV SCH (01:42)
[2017-08-27] MEDS ORDERED: Albuterol 0.083% 2.5 MG/3 ML Neb Soln NEB PRN (01:42)
[2017-08-27] MEDS ORDERED: Ondansetron 4 MG/2 ML SDV IV PRN (01:42)
[2017-08-27] MEDS ORDERED: HYDROmorphone/Normal Saline 15 MG/30 ML PCA IV PRN (01:42)
[2017-08-27] MEDS: Pantoprazole 40 MG Vial IVPUSH SCH ×2 (02:26→13:06)
[2017-08-27] MEDS ORDERED: fentaNYL 100 MCG/2 ML SDV ONE (07:57)
[2017-08-27] MEDS ORDERED: Midazolam 1 MG/ML 2 ML SDV ONE (07:57)
[2017-08-27] MEDS ORDERED: Propofol 200 MG/20 ML SDV ONE (07:57)
[2017-08-27] MEDS ORDERED: Lactated Ringers 1,000 ML ONE (08:57)
[2017-08-27] MEDS ORDERED: ClonazePAM 1 MG Tab PO PRN (10:17)
[2017-08-27] MEDS ORDERED: oxyCODONE 5 MG Tab PO PRN (10:58)
[2017-08-27] MEDS ORDERED: HYDROmorphone 0.5 MG/0.5 ML Syringe IVPUSH PRN (10:58)
[2017-08-27] MEDS ORDERED: Ciprofloxacin 500 MG Tab PO SCH (11:00)
[2017-08-27] MEDS ORDERED: Sucralfate 1 GM Tab PO SCH (11:00)
--- NOTE | 2017-08-27 11:00 | PCM.SURGPN ---
- General Info Date of Service: 08/27/17 Date of Surgery/Procedure: 08/27/17 POD#: 0 Post-Op Diagnosis: S/p EGD. Mild gastritis with duodenal ulcer. Admission Diagnosis/Problem: Abdominal discomfort Functional Status: Reports: Tolerating Diet, Ambulating Pain Score: 8 - Review of Systems General: Reports: No Symptoms Pulmonary: Reports: No Symptoms Cardiovascular: Reports: No Symptoms Gastrointestinal: Reports: Abdominal Pain, Vomiting (12-13 times coffee grounds , black, blood clots and then bile towards the end. ), Other Genitourinary: Reports: Other (Groin pain. Testicular pain that radiates the abdomen. Denies flank pain, denies ever feeling this pain before. ) Musculoskeletal: Reports: No Symptoms Skin: Reports: No Symptoms Neurological: Reports: No Symptoms - Patient Data Vitals - Most Recent: Last Vital Signs Temp 35.9 C 08/27/17 09:46 Pulse 60 08/27/17 10:15 Resp 18 08/27/17 09:46 BP 94/72 08/27/17 10:15 Pulse Ox 97 08/27/17 10:15 Weight - Most Recent: 91.4 kg I&O - Last 24 Hours: Intake & Output 08/26/17 08/27/17 08/27/17 22:59 06:59 14:59 Intake Total 845 Balance 845 Ozzie Results Last 24 Hrs: Microbiology 08/27/17 07:56 Gram Stain - Final Urine Med Orders - Current: Current Medications Albuterol (Proventil Neb Soln) 2.5 mg NEB Q4H PRN PRN Reason: Shortness Of Breath/wheezing Clonazepam (Klonopin) 1 mg PO TID PRN PRN Reason: ANXIETY Hydromorphone HCl (Dilaudid Synthetic Soil Blocks Pulper 15 Mg In Ns 30 Ml) 0 mg IV ASDIRECTED PRN; Protocol PRN Reason: Pain Last Admin: 08/27/17 02:27 Dose: 15 mg Lactated Ringer's (Ringers, Lactated) 1,000 mls @ 125 mls/hr IV ASDIRECTED FAISAL Last Admin: 08/27/17 02:26 Dose: 125 mls/hr Naloxone HCl (Narcan) 0.4 mg IVPUSH Q2M PRN PRN Reason: Respiratory Distress Ondansetron HCl (Zofran) 4 mg IV Q4H PRN PRN Reason: Nausea/Vomiting Last Admin: 08/27/17 07:06 Dose: 4 mg Pantoprazole Sodium (Protonix Iv) 40 mg IVPUSH Q12H [facility] Last Admin: 08/27/17 02:26 Dose: 40 mg Propranolol HCl (Inderal) 20 mg PO TID [facility] Risperidone (Risperidal) 1 mg PO BEDTIME FAISAL Sucralfate (Carafate) 1 gm PO QIDACANDBED [facility] Last Admin: 08/27/17 10:35 Dose: 1 gm Discontinued Medications Fentanyl (Sublimaze) Confirm Administered Dose 100 mcg .ROUTE .STK-MED ONE Stop: 08/27/17 07:58 Haloperidol Lactate (Haldol) 5 mg IVPUSH ONETIME ONE Stop: 08/27/17 00:05 Last Admin: 08/27/17 00:16 Dose: 5 mg Hydromorphone HCl (Dilaudid) 0.5 mg IVPUSH ONETIME ONE Stop: 08/27/17 00:06 Last Admin: 08/27/17 00:18 Dose: 0.5 mg Sodium Chloride (Normal Saline) 1,000 mls @ 500 mls/hr IV ASDIRECTED [facility] Last Admin: 08/27/17 00:14 Dose: 500 mls/hr Lactated Ringer's (Ringers, Lactated) Confirm Administered Dose 1,000 mls @ as directed .ROUTE .STK-MED ONE Stop: 08/27/17 08:58 Midazolam HCl (Versed 1 Mg/Ml) Confirm Administered Dose 2 mg .ROUTE .STK-MED ONE Stop: 08/27/17 07:58 Propofol (Diprivan 20 Ml) Confirm Administered Dose 200 mg .ROUTE .STK-MED ONE Stop: 08/27/17 07:58 - Exam General: Alert, Oriented, Mild Distress HEENT: Pupils Equal Neck: Trachea Midline, No JVD Lungs: Clear to Auscultation, Normal Respiratory Effort Cardiovascular: Regular Rate, Regular Rhythm, No Murmurs GI/Abdominal Exam: Normal Bowel Sounds, No Organomegaly, No Distention, Tender ( equisitely painful to touch ), Other (no erythema of the scrotum appreciated. No blood at the urethral meatus ) Skin: Warm, Dry, Intact Neurological: No New Focal Deficit Psy/Mental Status: Alert - Problem List Review Problem List Initiated/Reviewed/Updated: Yes - My Orders Last 24 Hours: Active Orders 24 hr Category Date Time Status Patient Status [ADT] Routine ADT 08/27/17 01:42 Active Communication Order [RC] STAT Care 08/27/17 01:42 Active Intake and Output [RC] QSHIFT Care 08/27/17 01:42 Active Notify Provider Consults [RC] ASDIRECTED Care 08/27/17 01:42 Active Notify Provider Consults [RC] ASDIRECTED Care 08/27/17 07:45 Active Notify Provider Vital Signs [RC] ASDIRECTED Care 08/27/17 01:42 Active Notify Provider [RC] PRN Care 08/27/17 01:42 Active Oxygen Therapy [RC] PRN Care 08/27/17 01:42 Active EMPLOYEE RELATIONS ADVISOR Record [RC] PER UNIT ROUTINE Care 08/27/17 01:42 Active Pulse Oximetry [RC] CONTINUOUS Care 08/27/17 01:42 Active RT Aerosol Therapy [RC] ASDIRECTED Care 08/27/17 01:42 Active Up ad Heidy [RC] ASDIRECTED Care 08/27/17 01:42 Active VTE/DVT Education [RC] Per Unit Routine Care 08/27/17 01:42 Active Vital Signs [RC] Q4H Care 08/27/17 01:42 Active Consult to Physician [CONS] Routine Cons 08/27/17 01:42 Ordered Consult to Physician [CONS] Routine Cons 08/27/17 07:40 Ordered Full Liquid Diet [DIET] Diet 08/27/17 Lunch Ordered Nothing per Oral Now Diet [DIET] Diet 08/27/17 Breakfast Active VÍCTOR TEST [RM] Routine Lab 08/27/17 09:09 Ordered CULTURE URINE [RM] Routine Lab 08/27/17 07:53 Received Albuterol [Proventil Neb Soln] Med 08/27/17 01:42 Active 2.5 mg NEB Q4H PRN ClonazePAM [KlonoPIN] Med 08/27/17 10:17 Active 1 mg PO TID PRN HYDROmorphone/Normal Saline [Dilaudid EMPLOYEE RELATIONS ADVISOR 15 MG in NS Med 08/27/17 01:42 Active 30 ML] See Protocol IV ASDIRECTED PRN Lactated Ringers [Ringers, Lactated] 1,000 ml Med 08/27/17 01:42 Active IV ASDIRECTED Naloxone [Narcan] Med 08/27/17 01:42 Active 0.4 mg IVPUSH Q2M PRN Ondansetron [Zofran] Med 08/27/17 01:42 Active 4 mg IV Q4H PRN Pantoprazole [ProTONIX IV] Med 08/27/17 02:00 Active 40 mg IVPUSH Q12H Propranolol [Inderal] Med 08/27/17 14:00 Active 20 mg PO TID Sucralfate [Carafate] Med 08/27/17 11:00 Active 1 gm PO QIDACANDBED risperiDONE [RisperiDAL] Med 08/27/17 21:00 Active 1 mg PO BEDTIME Medication Discontinuation Instructions [OM.PC] Stat Oth 08/27/17 01:42 Ordered SCD [Sequential Compression Device] [OM.PC] Routine Oth 08/27/17 02:52 Ordered Resuscitation Status Routine Resus Stat 08/27/17 00:46 Ordered Medication Orders Albuterol (Proventil Neb Soln) 2.5 mg NEB Q4H PRN PRN Reason: Shortness Of Breath/wheezing Clonazepam (Klonopin) 1 mg PO TID PRN PRN Reason: ANXIETY Hydromorphone HCl (Dilaudid Synthetic Soil Blocks Pulper 15 Mg In Ns 30 Ml) 0 mg IV ASDIRECTED PRN; Protocol PRN Reason: Pain Last Admin: 08/27/17 02:27 Dose: 15 mg Lactated Ringer's (Ringers, Lactated) 1,000 mls @ 125 mls/hr IV ASDIRECTED FAISAL Last Admin: 08/27/17 02:26 Dose: 125 mls/hr Naloxone HCl (Narcan) 0.4 mg IVPUSH Q2M PRN PRN Reason: Respiratory Distress Ondansetron HCl (Zofran) 4 mg IV Q4H PRN PRN Reason: Nausea/Vomiting Last Admin: 08/27/17 07:06 Dose: 4 mg Pantoprazole Sodium (Protonix Iv) 40 mg IVPUSH Q12H FAISAL Last Admin: 08/27/17 02:26 Dose: 40 mg Propranolol HCl (Inderal) 20 mg PO TID FAISAL Risperidone (Risperidal) 1 mg PO BEDTIME FAISAL Sucralfate (Carafate) 1 gm PO QIDACANDBED FAISAL Last Admin: 08/27/17 10:35 Dose: 1 gm - Plan Plan (Free Text/Narrative):: Jorge Valentine III is a 32 year old male with a significant psychological history of PTSD, anxiety and depression. 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 He is S/P EGD for hematemesis and concern for upper GI bleed. The patient was found to have some mild gastritis as well as a duodenal ulcer, which is the most likely cause of his pain. The patient was also complaining of some scrotal pain, which was exquisite. It was worse with movement and has been going on for one week. The patient did report a history of Epididymitis and is now being treated for this with levofloxicin. He will discharge to home and a prescription for sucralfate, Proton pump inhibitor and a small dose of oxycodone for pain. He is to return if his pain is not under control, sever dizziness, fever >101, vomiting or stooling blood or any other concerns. He had no further concerns or questions at this time. # Abdominal pain- result of duodenal ulcer. This could also be secondary to referred pain from his scrotum. - Protonix 40mg BID for 1 month then once daily for the month there after - Sulcralfate TID for 2 weeks - 5 mg Oxycodone PRN, #20 # Epididymitis- continue home does of levofloxacin Chronic Issues: #Anxiety and Depression - Continue home clonazepam, rispiridone, paroxitine and gabapentin VTE PPX- Demetra score of 2. Pt advised to continue moving around. SCD's in bed. Pneumonia PPX- Pt advised to walk around and use incentive spirometry 10 times per hour Code status: Full Fluids: 125 ml/hr Diet: Full diet Nausea: Zofran Q4hr PRN Bowel regimen: none Dispo: Patient will most likely remain in the hospital until tomorrow for control of his pain.
--- NOTE | 2017-08-27 13:02 | PCM.DCSUM1 ---
Discharge Summary - Hospital Course Brief History: 32-year-old male who presented with epigastric abdominal pain, vomiting and hematemesis. He was admitted for additional workup of possible GI bleed. - Discharge Data Discharge Date: 08/27/17 Discharge Disposition: Home, Self-Care 01 Condition: Good - Discharge Diagnosis/Problem(s) (1) Peptic ulcer disease SNOMED Code(s): 68646845 ICD Code: K27.9 - PEPTIC ULC, SITE UNSP, UNSP AC OR CHR, W/O HEMOR OR PERF Status: Acute (2) Epididymitis SNOMED Code(s): 45324382 ICD Code: N45.1 - EPIDIDYMITIS Status: Acute - Patient Summary/Data Consults: Consultations 08/27/17 01:42 Consult to Physician [CONS] Routine Consulting Provider: Lonny Chavarria Call Completed to Consulting Physician: Yes: EGD in am for upper GI bleed Reason for Consult: upper GI bleed Date Notified: 08/27/17 Time Notified: 00:30 08/27/17 07:40 Consult to Physician [CONS] Routine Consulting Provider: Dereje Serrano Call Completed to Consulting Physician: Yes: notified by charge nurse Reason for Consult: GERD mgmt Person Notified: Dereje Serrano Date Notified: 08/27/17 Time Notified: 07:45 Hospital Course: Arnel presented to the emergency room with acute epigastric abdominal pain as well as vomiting and reported hematemesis. He also had testicular pain. Workup in the emergency room was fairly unremarkable but the patient was very uncomfortable with his epigastric pain. He was admitted for observation and an EGD was planned for the morning after admission. Overnight there were no acute issues and he did not have any hematemesis. There is no evidence for blood loss and his hemoglobin was stable. The morning after admission he did have an EGD performed which revealed multiple areas of erosion in his stomach but no active bleeding. He was continued on his proton pump inhibitor and also started on Carafate. These medications improved his symptoms dramatically. He felt comfortable going home after these medications were initiated because he has not had any nausea or vomiting. He did tolerate a full liquid lunch at the time of discharge. He will be on a proton pump inhibitor twice daily for a month and then once daily thereafter. He will use Carafate 3 times daily with meals for the next 2 weeks. Also noted during the hospital stay was not testicular pain. Examination was consistent with epididymitis. He does have a prescription for antibiotics from his primary care physician at the pharmacy and he will be picking these up after hospital discharge. He did receive 1 dose of ciprofloxacin while he was in the hospital. He has not had any fevers. - Patient Instructions Diet: Regular Diet as Tolerated Diet, Other: soft and bland foods for the next week or so Activity: As Tolerated Driving: Do Not Drive (if taking pain pills) Showering/Bathing: May Shower Notify Provider of: Fever, Increased Pain, Nausea and/or Vomiting Other/Special Instructions: 1. You were in the hospital for management of epigastric abdominal pain with nausea and vomiting. The cause of your pain and vomiting was several ulcers inside your stomach. These are small in size. I recommend twice daily proton pump inhibitor use for the next month and then once daily thereafter. I also recommend sucralfate 3 times daily with meals for the next 2 weeks. Both of these medications reduce the acid in the stomach and help the ulcers to heal. 2. Complete course of antibiotics as prescribed by your primary care physician for the epididymitis. 3. Continue your other home medications as previously prescribed. 4. Seek medical attention if you develop fever greater than 101, have severe pain not controlled with your pain pills or if you have persistent vomiting or diarrhea. - Discharge Plan Prescriptions/Med Rec: oxyCODONE 5 mg PO Q4H PRN #20 tablet PRN Reason: Pain Pantoprazole [ProTONIX] 40 mg PO BID #60 tab.cr Sucralfate 1 gm PO TIDAC #42 tablet Home Medications: Home Meds Cyanocobalamin (Vitamin B-12) [Vitamin B-12] 1 tab PO DAILY 08/21/17 [History] Gabapentin [Neurontin] 1 tab PO TID 08/21/17 [History] PARoxetine HCl [Paroxetine HCl] 1 tab PO DAILY 08/21/17 [History] Propranolol HCl 20 mg PO TID 08/21/17 [History] clonazePAM [Clonazepam] 1 mg PO TID PRN 08/21/17 [History] risperiDONE 1 mg PO BEDTIME 08/21/17 [History] Pantoprazole [ProTONIX] 40 mg PO BID #60 tab.cr 08/27/17 [Rx] Sucralfate 1 gm PO TIDAC #42 tablet 08/27/17 [Rx] oxyCODONE 5 mg PO Q4H PRN #20 tablet 08/27/17 [Rx] Patient Handouts: Peptic Ulcer, [id number], Pantoprazole tablets Referrals: PCP,None [Primary Care Provider] - (follow-up with your primary care if symptoms do not continue to get better or if they get worse) - Discharge Summary/Plan Comment DC Time >30 min.: No (25) - Patient Data Vitals - Most Recent: Last Vital Signs Temp 36.8 C 08/27/17 12:56 Pulse 72 08/27/17 12:56 Resp 18 08/27/17 12:56 BP 121/62 08/27/17 12:56 Pulse Ox 97 08/27/17 12:56 Weight - Most Recent: 91.4 kg I&O - Last 24 hours: Intake & Output 08/26/17 08/27/17 08/27/17 22:59 06:59 14:59 Intake Total 845 Output Total 100 Balance 745 GUSTAVO Results - Last 24 hrs: Microbiology 08/27/17 07:56 Gram Stain - Final Urine Med Orders - Current: Current Medications Albuterol (Proventil Neb Soln) 2.5 mg NEB Q4H PRN PRN Reason: Shortness Of Breath/wheezing Ciprofloxacin (Ciprofloxacin Hcl) 500 mg PO BIDAC [facility] Last Admin: 08/27/17 12:11 Dose: 500 mg Clonazepam (Klonopin) 1 mg PO TID PRN PRN Reason: ANXIETY Hydromorphone HCl (Dilaudid) 0.5 mg IVPUSH Q4H PRN PRN Reason: Pain (severe 7-10) Lactated Ringer's (Ringers, Lactated) 1,000 mls @ 125 mls/hr IV ASDIRECTED [facility] Last Admin: 08/27/17 02:26 Dose: 125 mls/hr Naloxone HCl (Narcan) 0.4 mg IVPUSH Q2M PRN PRN Reason: Respiratory Distress Ondansetron HCl (Zofran) 4 mg IV Q4H PRN PRN Reason: Nausea/Vomiting Last Admin: 08/27/17 07:06 Dose: 4 mg Oxycodone HCl (Oxycodone) 5 mg PO Q4H PRN PRN Reason: Pain Pantoprazole Sodium (Protonix Iv) 40 mg IVPUSH Q12H [facility] Last Admin: 08/27/17 02:26 Dose: 40 mg Propranolol HCl (Inderal) 20 mg PO TID FAISAL Risperidone (Risperidal) 1 mg PO BEDTIME [facility]ISAL Sucralfate (Carafate) 1 gm PO QIDACANDBED [facility] Last Admin: 08/27/17 10:35 Dose: 1 gm Discontinued Medications Fentanyl (Sublimaze) Confirm Administered Dose 100 mcg .ROUTE .STK-MED ONE Stop: 08/27/17 07:58 Haloperidol Lactate (Haldol) 5 mg IVPUSH ONETIME ONE Stop: 08/27/17 00:05 Last Admin: 08/27/17 00:16 Dose: 5 mg Hydromorphone HCl (Dilaudid) 0.5 mg IVPUSH ONETIME ONE Stop: 08/27/17 00:06 Last Admin: 08/27/17 00:18 Dose: 0.5 mg Hydromorphone HCl (Dilaudid [employer] Moving [employer] 15 Mg In Ns 30 Ml) 0 mg IV ASDIRECTED PRN; Protocol PRN Reason: Pain Last Admin: 08/27/17 02:27 Dose: 15 mg Sodium Chloride (Normal Saline) 1,000 mls @ 500 mls/hr IV ASDIRECTED [facility] Last Admin: 08/27/17 00:14 Dose: 500 mls/hr Lactated Ringer's (Ringers, Lactated) Confirm Administered Dose 1,000 mls @ as directed .ROUTE .STK-MED ONE Stop: 08/27/17 08:58 Midazolam HCl (Versed 1 Mg/Ml) Confirm Administered Dose 2 mg .ROUTE .STK-MED ONE Stop: 08/27/17 07:58 Propofol (Diprivan 20 Ml) Confirm Administered Dose 200 mg .ROUTE .STK-MED ONE Stop: 08/27/17 07:58 - Exam Quality Assessment: Denies: Supplemental Oxygen General: Reports: Alert, Oriented, Cooperative, No Acute Distress Neck: Reports: Supple Lungs: Reports: Normal Respiratory Effort GI/Abdominal Exam: Soft, No Distention Extremities: No Pedal Edema Psy/Mental Status: Reports: Alert, Normal Affect *Q Meaningful Use (DIS) - VTE *Q VTE Criteria *Q: - Stroke *Q Stroke Criteria *Q: - AMI *Q AMI Criteria *Q:
[2017-08-27] MEDS ORDERED: Propranolol 10 MG Tab PO SCH (14:00)
[2017-08-27] MEDS ORDERED: risperiDONE 1 MG Tab PO SCH (21:00)
--- NOTE | 2017-09-02 02:53 | OR ---
DATE OF PROCEDURE: 08/27/2017 PREOPERATIVE DIAGNOSIS: Recent hematemesis. POSTOPERATIVE DIAGNOSIS: Erosive gastritis associated with superficial duodenal ulcer (no active bleeding). OPERATIVE PROCEDURE: Esophagogastroduodenoscopy with antral biopsies for CLOtest. ANESTHESIA: IV sedation. INDICATIONS FOR PROCEDURE: This is a 32-year-old presenting with history of some recent hematemesis and GI bleeding. The plan is to proceed with an upper GI endoscopy with biopsies as indicated. Potential risks, including bleeding and perforation were discussed, and the patient wishes to proceed. DETAILS OF PROCEDURE: The patient was taken to the operating room, placed in a left lateral decubitus position. IV sedation was administered after which the upper GI endoscope was passed orally through the length of the esophagus and into the stomach with retroflexion view of the fundus and thereafter through the pyloric channel and into the proximal duodenum. Findings included a normal hypopharynx, larynx, upper esophageal sphincter, and esophageal body. As one passed into the stomach, there was a small amount of retained bile. Retroflexion revealed no significant pathology within the fundus. In the antrum, there was some erosive gastritis with several small erosions covered with fibrinous exudate. As one passed through the pyloric channel, this was not stenotic. There was a superficial duodenal ulcer located, this was also covered with fibrinous exudate. Photodocumentation of this was obtained and the remainder of the duodenum to the junction of the third and fourth portions were unremarkable. At this point, biopsies were obtained from the antrum and sent for CLOtest for H. pylori. Minimal bleeding from the biopsy sites was seen and the procedure concluded. The patient was taken to the recovery room in satisfactory condition. Solomon Carrera MD /[id number]
== END 2017-08-27 13:33 | disposition home or self-care (01) ==
LOC: JP.ED 23:25 → JP.2SS 08-27 00:42
PROVIDERS: ADMIT Internal Medicine; ATTEND Surgery
DX: K29.00 Acute gastritis without bleeding (principal); K26.9 Duodenal ulcer, unspecified as acute or chronic, without hemorrhage or perforation; Z88.8 Allergy status to other drugs, medicaments and biological substances; Z91.041 Radiographic dye allergy status; Z79.899 Other long term (current) drug therapy; I10 Essential (primary) hypertension; F41.9 Anxiety disorder, unspecified; F32.9 Major depressive disorder, single episode, unspecified; Z90.49 Acquired absence of other specified parts of digestive tract; F17.210 Nicotine dependence, cigarettes, uncomplicated
CPT/HCPCS: 36415; 43239; 80048; 82150; 83690; 85025; 87081; 87086; 87205; 96361; 96374; 96375; 96376; 99285; A9270; C9113; G0378; J1170; J1630; J2250; J2405; J2704; J3010; J7040; J7120; J7030

== ENCOUNTER 2017-09-07 19:55 | Emergency (ER) | payer MEDICAID ==
[2017-09-07] MEDS ORDERED: Ketorolac 60 MG/2 ML SDV IM ONE (20:50)
[2017-09-07] MEDS ORDERED: methylPREDNISolone Sodium Succinate 125 MG/2 ML SDV IM ONE (20:50)
--- NOTE | 2017-09-07 21:01 | EDM.PDOC ---
ED HPI GENERAL MEDICAL PROBLEM - General Chief Complaint: Genitourinary Problem Stated Complaint: SWOLLEN SCROTEM Time Seen by Provider: 09/07/17 20:30 Source of Information: Reports: Patient, Family History Limitations: Reports: No Limitations - History of Present Illness INITIAL COMMENTS - FREE TEXT/NARRATIVE: 32-year-old male with ongoing abdominal and testicular pain, urinary symptoms that has been worked up at several different hospitals over the course of the last 2 weeks. He has had 2 urology consults, 7 or 8 emergency room visits in a few clinic visits. He had a local infiltrative nerve block to the left testicle area 2 days ago. He said it helped for 12 hours but then got "100 times worse". This afternoon his scrotum was swollen so he wanted to check. He does not appear to be uncomfortable. Onset: Unknown/Unsure Quality: Reports: Throbbing Worsens with: Reports: Other (Urinating), Movement Associated Symptoms: Reports: No Other Symptoms - Related Data Allergies Allergy/AdvReac Type Severity Reaction Status Date / Time meperidine [From Demerol] Allergy Hives Verified 08/26/17 23:47 iv contrast Allergy Severe Anaphylactic Uncoded 08/26/17 23:47 Shock Home Meds: Home Meds Cyanocobalamin (Vitamin B-12) [Vitamin B-12] 1 tab PO DAILY 08/21/17 [History] Gabapentin [Neurontin] 1 tab PO TID 08/21/17 [History] PARoxetine HCl [Paroxetine HCl] 1 tab PO DAILY 08/21/17 [History] Propranolol HCl 20 mg PO TID 08/21/17 [History] clonazePAM [Clonazepam] 1 mg PO TID PRN 08/21/17 [History] risperiDONE 1 mg PO BEDTIME 08/21/17 [History] Pantoprazole [ProTONIX] 40 mg PO BID #60 tab.cr 08/27/17 [Rx] Sucralfate 1 gm PO TIDAC #42 tablet 08/27/17 [Rx] Amitriptyline [Elavil] 25 mg PO ASDIRECTED 09/07/17 [History] Levofloxacin [Levofloxacin] 500 mg PO DAILY 09/07/17 [History] traMADol Hcl/Acetaminophen [Ultracet Tablet] 1 tab PO ASDIRECTED PRN 09/07/17 [ History] Past Medical History Cardiovascular History: Reports: Arrhythmia, Hypertension Respiratory History: Reports: Pneumothorax Genitourinary History: Reports: Renal Calculus, Other (See Below) Other Genitourinary History: right kidney reconstruction Musculoskeletal History: Reports: Other (See Below) Other Musculoskeletal History: crush injury left hand, boxer fracture right hand Neurological History: Reports: Concussion, Head Trauma, Migraines Psychiatric History: Reports: Anxiety, Depression - Infectious Disease History Infectious Disease History: Reports: Chicken Pox - Past Surgical History GI Surgical History: Reports: Cholecystectomy Male Surgical History: Reports: Renal Calculus, Other (See Below) Other Male Surgeries/Procedures: stents Social & Family History - Family History Family Medical History: Noncontributory GI: Reports: Other (See Below) - Tobacco Use Smoking Status *Q: Light Tobacco Smoker Years of Tobacco use: 15 Packs/Tins Daily: 0.5 Used Tobacco, but Quit: No Second Hand Smoke Exposure: No - Caffeine Use Caffeine Use: Reports: Coffee, Energy Drinks, Soda Other Caffeine Use: 16 oz coffee daily - Alcohol Use Days Per Week of Alcohol Use: 1 Number of Drinks Per Day: 4 Total Drinks Per Week: 4 - Recreational Drug Use Recreational Drug Use: No - Living Situation & Occupation Living situation: Reports: with Family (Lives in [facility] with his Immediate family.) Occupation: Employed ED ROS GENERAL - Review of Systems Review Of Systems: See Below Constitutional: Denies: Fever, Chills, Malaise Respiratory: Denies: Shortness of Breath Cardiovascular: Denies: Chest Pain GI/Abdominal: Reports: Abdominal Pain. Denies: Nausea, Vomiting : Reports: Other (Urinary hesitancy) Musculoskeletal: Reports: No Symptoms Skin: Reports: No Symptoms Psychiatric: Reports: Anxiety, Depression ED EXAM, RENAL/ - Physical Exam Exam: See Below Exam Limited By: No Limitations General Appearance: Alert, No Apparent Distress Respiratory/Chest: No Respiratory Distress GI/Abdominal: Soft, Non-Tender (Male) Exam: Normal Inspection, Other (He complains of some tenderness to palpation around the left testicle but I do not appreciate any swelling or physical abnormality) Neurological: Alert, Oriented Course - Vital Signs Last Recorded V/S: Last Vital Signs Temp 96.6 F 09/07/17 20:13 Pulse 78 09/07/17 20:13 Resp 16 09/07/17 20:13 BP 143/98 H 09/07/17 20:13 Pulse Ox 98 09/07/17 20:13 - Orders/Labs/Meds Meds: Medications Discontinued Medications Generic Name Dose Route Start Last Admin Trade Name Rehan PRN Reason Stop Dose Admin Ketorolac Tromethamine 60 mg 09/07/17 20:50 09/07/17 20:54 Toradol IM 09/07/17 20:51 60 mg ONETIME ONE Administration Methylprednisolone Sodium Succinate 125 mg 09/07/17 20:50 09/07/17 20:54 Solu-Medrol IM 09/07/17 20:51 125 mg ONETIME ONE Administration - Re-Assessments/Exams Free Text/Narrative Re-Assessment/Exam: 09/07/17 22:25 When I explained to the patient that it doesn't appear to be swollen, he said it was as big as a "softball" earlier today. I read through his clinic notes, he has had 3 ultrasounds of the testicles, CT scan with IV contrast, numerous labs and consultations all normal. He may have had some temporary swelling from the local nerve block, he was given an injection of Toradol and 125 mg of Solu- Medrol but no further treatment given at this time. Departure - Departure Time of Disposition: 21:18 Disposition: Home, Self-Care 01 Condition: Good Clinical Impression: Testicle pain - Discharge Information Instructions: Dysuria Referrals: Teresa Holcomb PA [Primary Care Provider] - Forms: ED Department Discharge Care Plan Goals: Continue your current medications. You should slowly continue to improve on anti -inflammatories for pain, if not recheck with urology.
== END 2017-09-07 21:20 | disposition home or self-care (01) ==
LOC: JP.ED 19:55
DX: N50.812 Left testicular pain (principal); I10 Essential (primary) hypertension; F17.210 Nicotine dependence, cigarettes, uncomplicated; Z88.8 Allergy status to other drugs, medicaments and biological substances; Z79.899 Other long term (current) drug therapy; Z91.041 Radiographic dye allergy status
CPT/HCPCS: 96372; 99284; J1885; J2930

== ENCOUNTER 2017-09-23 01:35 | Emergency (ER) | payer MEDICAID ==
--- NOTE | 2017-09-23 02:01 | EDM.PDOC ---
ED HPI GENERAL MEDICAL PROBLEM - General Chief Complaint: Behavioral/Psych Stated Complaint: CHEST PAIN/LEFT ARM PAIN Time Seen by Provider: 09/23/17 01:55 Source of Information: Reports: Patient, Old Records, RN History Limitations: Reports: No Limitations - History of Present Illness INITIAL COMMENTS - FREE TEXT/NARRATIVE: 32 yo male here with "a PTSD" flare. Normally gets over it taking a dose of clonazepam, but today this is not working. Is here with his father. Not able to sleep. Has a disc issue in his neck and now some numbness in the L arm. Feels some L chest pain, has had this in the past in association with this problem. No hx of CAD. 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: Other (see below) (clonazepam) chest pressure Pain Score (Numeric/FACES): 8 - Related Data Allergies Allergy/AdvReac Type Severity Reaction Status Date / Time meperidine [From Demerol] Allergy Hives Verified 08/26/17 23:47 iv contrast Allergy Severe Anaphylactic Uncoded 08/26/17 23:47 Shock Home Meds: Home Meds Cyanocobalamin (Vitamin B-12) [Vitamin B-12] 1 tab PO DAILY 08/21/17 [History] Gabapentin [Neurontin] 1 tab PO TID 08/21/17 [History] PARoxetine HCl [Paroxetine HCl] 1 tab PO DAILY 08/21/17 [History] Propranolol HCl 20 mg PO TID 08/21/17 [History] clonazePAM [Clonazepam] 1 mg PO TID PRN 08/21/17 [History] risperiDONE 1 mg PO BEDTIME 08/21/17 [History] Pantoprazole [ProTONIX] 40 mg PO BID #60 tab.cr 08/27/17 [Rx] Sucralfate 1 gm PO TIDAC #42 tablet 08/27/17 [Rx] Amitriptyline [Elavil] 25 mg PO ASDIRECTED 09/07/17 [History] Levofloxacin [Levofloxacin] 500 mg PO DAILY 09/07/17 [History] traMADol Hcl/Acetaminophen [Ultracet Tablet] 1 tab PO ASDIRECTED PRN 09/07/17 [ History] Past Medical History Cardiovascular History: Reports: Arrhythmia, Hypertension Respiratory History: Reports: Pneumothorax Genitourinary History: Reports: Renal Calculus, Other (See Below) Other Genitourinary History: right kidney reconstruction Musculoskeletal History: Reports: Other (See Below) Other Musculoskeletal History: crush injury left hand, boxer fracture right hand Neurological History: Reports: Concussion, Head Trauma, Migraines Psychiatric History: Reports: Anxiety, Depression - Infectious Disease History Infectious Disease History: Reports: Chicken Pox - Past Surgical History GI Surgical History: Reports: Cholecystectomy Male Surgical History: Reports: Renal Calculus, Other (See Below) Other Male Surgeries/Procedures: stents Social & Family History - Family History Family Medical History: Noncontributory GI: Reports: Other (See Below) - Tobacco Use Smoking Status *Q: Light Tobacco Smoker Years of Tobacco use: 15 Packs/Tins Daily: 0.5 Used Tobacco, but Quit: No Second Hand Smoke Exposure: No - Caffeine Use Caffeine Use: Reports: Coffee, Energy Drinks, Soda Other Caffeine Use: 16 oz coffee daily - Alcohol Use Days Per Week of Alcohol Use: 1 Number of Drinks Per Day: 4 Total Drinks Per Week: 4 - Recreational Drug Use Recreational Drug Use: No - Living Situation & Occupation Living situation: Reports: with Family (Lives in [facility] with his Immediate family.) Occupation: Employed ED ROS GENERAL - Review of Systems Review Of Systems: See Below Constitutional: Reports: No Symptoms HEENT: Reports: No Symptoms Respiratory: Reports: No Symptoms Cardiovascular: Reports: Chest Pain GI/Abdominal: Reports: No Symptoms : Reports: No Symptoms Musculoskeletal: Reports: No Symptoms Skin: Reports: No Symptoms Neurological: Reports: No Symptoms ED EXAM, GENERAL - Physical Exam Exam: See Below Exam Limited By: No Limitations General Appearance: Alert, WD/WN, No Apparent Distress Eye Exam: Bilateral Eye: Normal Inspection, PERRL Ears: Normal External Exam, Normal Canal, Hearing Grossly Normal Ear Exam: Bilateral Ear: Auricle Normal, Canal Normal Nose: Normal Inspection, Normal Mucosa, No Blood Throat/Mouth: Normal Inspection, Normal Lips, Normal Oropharynx, Normal Voice, No Airway Compromise, Other (missing his maxillary teeth, mandibular teeth in poor repair. ) Head: Atraumatic, Normocephalic Neck: Normal Inspection, Supple, Non-Tender Respiratory/Chest: No Respiratory Distress, Lungs Clear, Normal Breath Sounds, No Accessory Muscle Use Cardiovascular: Regular Rate, Rhythm, No Edema GI/Abdominal: Normal Bowel Sounds, Soft, Non-Tender, No Distention Back Exam: Normal Inspection Extremities: Normal Inspection, Normal Range of Motion, No Pedal Edema Neurological: Alert, Oriented, CN II-XII Intact, Normal Cognition, No Motor/ Sensory Deficits Skin Exam: Warm, Dry, Intact, Normal Color, No Rash, Other (multiple tatoos) Lymphatic: No Adenopathy EKG INTERPRETATION EKG Date: 09/23/17 Time: 01:50 Rhythm: NSR Rate (Beats/Min): 71 [place]: Normal P-Wave: Present QRS: Normal ST-T: Normal QT: Normal Comparison: No Change Course - Vital Signs Last Recorded V/S: Last Vital Signs Temp 35.5 C 09/23/17 01:59 Pulse 87 09/23/17 01:59 Resp 18 09/23/17 01:59 BP 133/88 09/23/17 01:59 Pulse Ox 100 09/23/17 01:59 - Orders/Labs/Meds Orders: Active Orders 24 hr Category Date Time Status EKG Documentation Completion [RC] ASDIRECTED Care 09/23/17 01:58 Active Haloperidol Lactate [Haldol] Med 09/23/17 02:02 Once 5 mg IM ONETIME ONE diphenhydrAMINE [Benadryl] Med 09/23/17 02:02 Once 75 mg IM ONETIME ONE EKG 12 Lead [EK] Routine Ther 09/23/17 01:58 Ordered Departure - Departure Time of Disposition: 02:20 Disposition: Home, Self-Care 01 Condition: Good Clinical Impression: Anxiety Insomnia Qualifiers: Insomnia type: due to other mental disorder Qualified Code(s): F51.05 - Insomnia due to other mental disorder; F99 - Mental disorder, not otherwise specified; F99 - Mental disorder, not otherwise specified Referrals: PCP,None [Primary Care Provider] - Forms: ED Department Discharge - My Orders Last 24 Hours: My Active Orders 09/23/17 01:58 EKG Documentation Completion [RC] ASDIRECTED EKG 12 Lead [EK] Routine 09/23/17 02:02 Haloperidol Lactate [Haldol] 5 mg IM ONETIME ONE diphenhydrAMINE [Benadryl] 75 mg IM ONETIME ONE - Assessment/Plan Last 24 Hours: My Active Orders 09/23/17 01:58 EKG Documentation Completion [RC] ASDIRECTED EKG 12 Lead [EK] Routine 09/23/17 02:02 Haloperidol Lactate [Haldol] 5 mg IM ONETIME ONE diphenhydrAMINE [Benadryl] 75 mg IM ONETIME ONE
[2017-09-23] MEDS ORDERED: Haloperidol Lactate 5 MG/ML SDV IM ONE (02:02)
[2017-09-23] MEDS ORDERED: diphenhydrAMINE 50 MG/ML SDV IM ONE (02:02)
== END 2017-09-23 02:24 | disposition home or self-care (01) ==
LOC: JP.ED 01:35
DX: F51.05 Insomnia due to other mental disorder (principal); F41.9 Anxiety disorder, unspecified; I10 Essential (primary) hypertension; F17.210 Nicotine dependence, cigarettes, uncomplicated; Z91.041 Radiographic dye allergy status; Z88.8 Allergy status to other drugs, medicaments and biological substances; Z79.899 Other long term (current) drug therapy
CPT/HCPCS: 93005; 93010; 96372; 99284; 99285; J1200; J1630

== ENCOUNTER 2017-10-11 19:38 | Emergency (ER) | payer MEDICAID ==
[2017-10-11] MEDS ORDERED: Lactated Ringers 1,000 ML IV ONE ×2 (20:48→22:27)
[2017-10-11] MEDS ORDERED: Acetaminophen 500 MG Tab PO ONE (20:49)
[2017-10-11] MEDS ORDERED: Metoclopramide 10 MG/2 ML SDV IVPUSH ONE (20:49)
--- NOTE | 2017-10-11 20:55 | EDM.PDOC ---
ED HPI GENERAL MEDICAL PROBLEM - General Chief Complaint: Abdominal Pain Stated Complaint: PAIN IN ABD AND KIDNEYS Time Seen by Provider: 10/11/17 20:35 Source of Information: Reports: Patient, Old Records, RN History Limitations: Reports: No Limitations - History of Present Illness INITIAL COMMENTS - FREE TEXT/NARRATIVE: 32 yo male presents with upper abdominal pain in band extending from LUQ all the way to his RUQ. Sx's began yesterday and included vomiting and diarrhea. The vomiting and diarrhea have not recurred today. Moving and eating/drinking worsens his pain. No blood in his stool or emesis. No fever. Is dizzy with standing. Had his gallbladder out in the past and was dx just 6 weeks ago with gastric ulcer and is still on Carafate for this. The end of this past week he hurt his low back and was seen in the clinic where they gave him prednisone and naproxen for his sx's. His father says that he noticed this evening that the prescriptions for naproxen and prednisone given 2 days ago are all gone. There were #60 Naproxen 500 mg and #48 prednisone 10 mg. Father says the son has a pHx of overusing his meds. Onset: Gradual Onset Date: 10/10/17 Duration: Day(s): (1.5 days), Constant Location: Reports: Abdomen Quality: Reports: Ache Severity: Moderate Improves with: Reports: Rest Worsens with: Reports: Eating, Movement Context: Reports: Other (Hx of choly, recent dx of peptic ulcer dz) Associated Symptoms: Reports: Nausea/Vomiting, Other (diarrhea, not since yesterday.). Denies: Fever/Chills Treatments MANAGER ETL: Reports: Other (see below) Other Treatments MANAGER ETL: none Abdomen Pain Score (Numeric/FACES): 8 - Related Data Allergies Allergy/AdvReac Type Severity Reaction Status Date / Time meperidine [From Demerol] Allergy Hives Verified 10/11/17 20:05 iv contrast Allergy Severe Anaphylactic Uncoded 10/11/17 20:05 Shock Home Meds: Home Meds Cyanocobalamin (Vitamin B-12) [Vitamin B-12] 1 tab PO DAILY 08/21/17 [History] Gabapentin [Neurontin] 300 mg PO TID 08/21/17 [History] PARoxetine HCl [Paroxetine HCl] 20 mg PO DAILY 08/21/17 [History] Propranolol HCl 20 mg PO TID 08/21/17 [History] clonazePAM [Clonazepam] 1 mg PO TID PRN 08/21/17 [History] risperiDONE 1 mg PO BEDTIME 08/21/17 [History] Sucralfate 1 gm PO TIDAC #42 tablet 08/27/17 [Rx] Amitriptyline [Elavil] 25 mg PO ASDIRECTED 09/07/17 [History] traMADol Hcl/Acetaminophen [Ultracet Tablet] 1 tab PO ASDIRECTED PRN 09/07/17 [ History] Naproxen 500 mg PO BID 10/11/17 [History] predniSONE [Prednisone] 10 mg PO ASDIRECTED 10/11/17 [History] Past Medical History HEENT History: Reports: Impaired Vision Cardiovascular History: Reports: Arrhythmia, Hypertension Respiratory History: Reports: Pneumothorax Gastrointestinal History: Reports: Other (See Below) Other Gastrointestinal History: ulcers Genitourinary History: Reports: Renal Calculus, Other (See Below) Other Genitourinary History: right kidney reconstruction Musculoskeletal History: Reports: Other (See Below) Other Musculoskeletal History: crush injury left hand, boxer fracture right hand Neurological History: Reports: Concussion, Head Trauma, Migraines Psychiatric History: Reports: Anxiety, Depression Other Psychiatric History: PTSD childhood trauma Dermatologic History: Reports: Other (See Below) Other Dermatologic History: tattoos - Infectious Disease History Infectious Disease History: Reports: Chicken Pox - Past Surgical History HEENT Surgical History: Reports: Oral Surgery GI Surgical History: Reports: Cholecystectomy Male Surgical History: Reports: Renal Calculus, Other (See Below) Other Male Surgeries/Procedures: stents Social & Family History - Family History Family Medical History: Noncontributory GI: Reports: Other (See Below) - Tobacco Use Smoking Status *Q: Current Every Day Smoker Years of Tobacco use: 15 Packs/Tins Daily: 0.5 Used Tobacco, but Quit: No Second Hand Smoke Exposure: Yes - Caffeine Use Caffeine Use: Reports: Energy Drinks Other Caffeine Use: 16 oz coffee daily - Alcohol Use Days Per Week of Alcohol Use: 1 Number of Drinks Per Day: 4 Total Drinks Per Week: 4 - Recreational Drug Use Recreational Drug Use: No - Living Situation & Occupation Living situation: Reports: with Family (Lives in [facility] with his Immediate family.) Occupation: Employed ED ROS GENERAL - Review of Systems Review Of Systems: See Below Constitutional: Reports: Decreased Appetite HEENT: Reports: No Symptoms Respiratory: Reports: No Symptoms Cardiovascular: Reports: Lightheadedness (with standing) Endocrine: Reports: No Symptoms GI/Abdominal: Reports: Abdominal Pain : Reports: No Symptoms Musculoskeletal: Reports: No Symptoms Skin: Reports: No Symptoms Neurological: Reports: No Symptoms ED EXAM, GI/ABD - Physical Exam Exam: See Below Exam Limited By: No Limitations General Appearance: Alert, WD/WN, No Apparent Distress, Obese Eyes: Bilateral: Normal Appearance Ears: Normal External Exam, Normal Canal, Hearing Grossly Normal Nose: Normal Inspection, Normal Mucosa, No Blood Throat/Mouth: Normal Inspection, Normal Lips, Normal Oropharynx, Other (Has no teeth on the maxillary half of his mouth.). No: Normal Teeth Head: Atraumatic, Normocephalic Neck: Normal Inspection, Supple, Non-Tender Respiratory/Chest: No Respiratory Distress, Lungs Clear, Normal Breath Sounds, No Accessory Muscle Use Cardiovascular: Regular Rate, Rhythm GI/Abdominal Exam: Normal Bowel Sounds, Soft, No Distention, Tender (everywhere on the upper half of his abdomen. ) Back Exam: Normal Inspection. No: CVA Tenderness (R), CVA Tenderness (L) Extremities: Normal Inspection, Normal Range of Motion, Non-Tender, No Pedal Edema Neurological: Alert, Oriented, CN II-XII Intact, Normal Cognition, No Motor/ Sensory Deficits Psychiatric: Normal Affect, Normal Mood Skin Exam: Warm, Dry, Intact, Normal Color, No Rash Lymphatic: No Adenopathy Course - Vital Signs Text/Narrative:: Partial relief with a GI cocktail po. Last Recorded V/S: Last Vital Signs Temp 36.4 C 10/11/17 20:04 Pulse 72 10/11/17 22:36 Resp 18 10/11/17 22:36 BP 122/63 10/11/17 22:36 Pulse Ox 99 10/11/17 22:36 Orthostatic Blood Pressure [ 141/96 Standing] Orthostatic Blood Pressure [ 157/96 Sitting] Orthostatic Blood Pressure [ 138/74 Supine] - Orders/Labs/Meds Orders: Active Orders 24 hr Category Date Time Status Orthostatic Vital Signs [RC] ASDIRECTED Care 10/11/17 20:48 Active DRUG SCREEN, URINE [URCHEM] Stat Lab 10/11/17 21:58 Ordered UA W/MICROSCOPIC [URIN] Stat Lab 10/11/17 22:36 Ordered Lactated Ringers [Ringers, Lactated] 1,000 ml Med 10/11/17 22:27 Active IV BOLUS Medication Orders Lactated Ringer's (Ringers, Lactated) 1,000 mls @ 1,000 mls/hr IV BOLUS ONE Stop: 10/11/17 23:26 Last Admin: 10/11/17 22:31 Dose: 1,000 mls/hr Labs: Laboratory Tests 10/11/17 10/11/17 10/11/17 Range/Units 20:48 20:48 21:45 WBC 16.7 H (4.5-11.0) K/uL RBC 4.70 (4.30-5.90) M/uL Hgb 14.4 (12.0-15.0) g/dL Hct 41.8 (40.0-54.0) % MCV 89 (80-98) fL MCH 31 (27-31) pg MCHC 34 (32-36) % Plt Count 303 (150-400) K/uL Percent Retic (0.5-1.5) % Sodium 140 (140-148) mmol/L Potassium 3.7 (3.6-5.2) mmol/L Chloride 104 (100-108) mmol/L Carbon Dioxide 24 (21-32) mmol/L Anion Gap 12.1 (5.0-14.0) mmol/L BUN 21 H D (7-18) mg/dL Creatinine 1.2 (0.8-1.3) mg/dL Est Cr Clr Drug Dosing 100.80 mL/min Estimated GFR (MDRD) > 60 (>60) Glucose 94 (74-106) mg/dL Calcium 8.4 L (8.5-10.1) mg/dL Total Bilirubin 4.9 H D (0.2-1.0) mg/dL Direct Bilirubin (0.0-0.2) mg/dL AST 13 L (15-37) U/L ALT 28 (12-78) U/L Alkaline Phosphatase 64 (46-116) U/L Lactate Dehydrogenase (85-227) U/L C-Reactive Protein 0.22 (0.0-0.3) mg/dL Total Protein 7.1 (6.4-8.2) g/dL Albumin 4.3 (3.4-5.0) g/dL Globulin 2.8 (2.3-3.5) g/dL Albumin/Globulin Ratio 1.5 (1.2-2.2) Lipase 114 (73-393) U/L Urine Color Urine Appearance Urine pH (4.5-8.0) Ur Specific [place] (1.008-1.030) Urine Protein (NEGATIVE) mg/dL Urine Glucose (UA) (NEGATIVE) mg/dL Urine Ketones (NEGATIVE) mg/dL Urine Occult Blood (NEGATIVE) Urine Nitrite (NEGAITVE) Urine Bilirubin (NEGATIVE) Urine Urobilinogen (NORMAL) mg/dL Ur Leukocyte Esterase (NEGATIVE) Urine RBC (0-5) Urine WBC (0-5) Ur Epithelial Cells Amorphous Sediment Urine Bacteria Urine Mucus Urine Opiates Screen (NEGATIVE) Ur Oxycodone Screen (NEGATIVE) Urine Methadone Screen (NEGATIVE) Ur Propoxyphene Screen (NEGATIVE) Ur Barbiturates Screen (NEGATIVE) Ur Tricyclics Screen (NEGATIVE) Ur Phencyclidine Scrn (NEGATIVE) Ur Amphetamine Screen (NEGATIVE) U Methamphetamines Scrn (NEGATIVE) Urine MDMA Screen (NEGATIVE) U Benzodiazepines Scrn (NEGATIVE) U Cocaine Metab Screen (NEGATIVE) U Marijuana (THC) Screen (NEGATIVE) 10/11/17 10/11/17 10/11/17 Range/Units 21:47 21:58 22:30 WBC (4.5-11.0) K/uL RBC (4.30-5.90) M/uL Hgb (12.0-15.0) g/dL Hct (40.0-54.0) % MCV (80-98) fL MCH (27-31) pg MCHC (32-36) % Plt Count (150-400) K/uL Percent Retic (0.5-1.5) % Sodium (140-148) mmol/L Potassium (3.6-5.2) mmol/L Chloride (100-108) mmol/L Carbon Dioxide (21-32) mmol/L Anion Gap (5.0-14.0) mmol/L BUN (7-18) mg/dL Creatinine (0.8-1.3) mg/dL Est Cr Clr Drug Dosing mL/min Estimated GFR (MDRD) (>60) Glucose (74-106) mg/dL Calcium (8.5-10.1) mg/dL Total Bilirubin (0.2-1.0) mg/dL Direct Bilirubin 0.06 (0.0-0.2) mg/dL AST (15-37) U/L ALT (12-78) U/L Alkaline Phosphatase (46-116) U/L Lactate Dehydrogenase 151 (85-227) U/L C-Reactive Protein (0.0-0.3) mg/dL Total Protein (6.4-8.2) g/dL Albumin (3.4-5.0) g/dL Globulin (2.3-3.5) g/dL Albumin/Globulin Ratio (1.2-2.2) Lipase (73-393) U/L Urine Color Urine Appearance Urine pH (4.5-8.0) Ur Specific [place] (1.008-1.030) Urine Protein (NEGATIVE) mg/dL Urine Glucose (UA) (NEGATIVE) mg/dL Urine Ketones (NEGATIVE) mg/dL Urine Occult Blood (NEGATIVE) Urine Nitrite (NEGAITVE) Urine Bilirubin (NEGATIVE) Urine Urobilinogen (NORMAL) mg/dL Ur Leukocyte Esterase (NEGATIVE) Urine RBC (0-5) Urine WBC (0-5) Ur Epithelial Cells Amorphous Sediment Urine Bacteria Urine Mucus Urine Opiates Screen Negative (NEGATIVE) Ur Oxycodone Screen Negative (NEGATIVE) Urine Methadone Screen Negative (NEGATIVE) Ur Propoxyphene Screen Negative (NEGATIVE) Ur Barbiturates Screen Negative (NEGATIVE) Ur Tricyclics Screen Positive H (NEGATIVE) Ur Phencyclidine Scrn Positive H (NEGATIVE) Ur Amphetamine Screen Negative (NEGATIVE) U Methamphetamines Scrn Negative (NEGATIVE) Urine MDMA Screen Negative (NEGATIVE) U Benzodiazepines Scrn Negative (NEGATIVE) U Cocaine Metab Screen Negative (NEGATIVE) U Marijuana (THC) Screen Positive H (NEGATIVE) 10/11/17 10/11/17 Range/Units 22:32 22:36 WBC (4.5-11.0) K/uL RBC (4.30-5.90) M/uL Hgb (12.0-15.0) g/dL Hct (40.0-54.0) % MCV (80-98) fL MCH (27-31) pg MCHC (32-36) % Plt Count (150-400) K/uL Percent Retic 1.4 (0.5-1.5) % Sodium (140-148) mmol/L Potassium (3.6-5.2) mmol/L Chloride (100-108) mmol/L Carbon Dioxide (21-32) mmol/L Anion Gap (5.0-14.0) mmol/L BUN (7-18) mg/dL Creatinine (0.8-1.3) mg/dL Est Cr Clr Drug Dosing mL/min Estimated GFR (MDRD) (>60) Glucose (74-106) mg/dL Calcium (8.5-10.1) mg/dL Total Bilirubin (0.2-1.0) mg/dL Direct Bilirubin (0.0-0.2) mg/dL AST (15-37) U/L ALT (12-78) U/L Alkaline Phosphatase (46-116) U/L Lactate Dehydrogenase (85-227) U/L C-Reactive Protein (0.0-0.3) mg/dL Total Protein (6.4-8.2) g/dL Albumin (3.4-5.0) g/dL Globulin (2.3-3.5) g/dL Albumin/Globulin Ratio (1.2-2.2) Lipase (73-393) U/L Urine Color Other Urine Appearance Clear Urine pH 6.5 (4.5-8.0) Ur Specific [place] 1.020 (1.008-1.030) Urine Protein 100 H (NEGATIVE) mg/dL Urine Glucose (UA) Normal (NEGATIVE) mg/dL Urine Ketones 15 H (NEGATIVE) mg/dL Urine Occult Blood Negative (NEGATIVE) Urine Nitrite Negative (NEGAITVE) Urine Bilirubin Moderate (NEGATIVE) Urine Urobilinogen 1 (NORMAL) mg/dL Ur Leukocyte Esterase Negative (NEGATIVE) Urine RBC Not seen (0-5) Urine WBC Not seen (0-5) Ur Epithelial Cells Rare Amorphous Sediment Not seen Urine Bacteria Not seen Urine Mucus Few Urine Opiates Screen (NEGATIVE) Ur Oxycodone Screen (NEGATIVE) Urine Methadone Screen (NEGATIVE) Ur Propoxyphene Screen (NEGATIVE) Ur Barbiturates Screen (NEGATIVE) Ur Tricyclics Screen (NEGATIVE) Ur Phencyclidine Scrn (NEGATIVE) Ur Amphetamine Screen (NEGATIVE) U Methamphetamines Scrn (NEGATIVE) Urine MDMA Screen (NEGATIVE) U Benzodiazepines Scrn (NEGATIVE) U Cocaine Metab Screen (NEGATIVE) U Marijuana (THC) Screen (NEGATIVE) Meds: Medications Generic Name Dose Route Start Last Admin Trade Name Freq PRN Reason Stop Dose Admin Lactated Ringer's 1,000 mls @ 1,000 mls/hr 10/11/17 22:27 10/11/17 22:31 Ringers, Lactated IV 10/11/17 23:26 1,000 mls/hr BOLUS ONE Administration Discontinued Medications Generic Name Dose Route Start Last Admin Trade Name Freq PRN Reason Stop Dose Admin Acetaminophen 1,000 mg 10/11/17 20:49 10/11/17 22:32 Tylenol Extra Strength PO 10/11/17 20:50 1,000 mg ONETIME ONE Administration Al Hydroxide/Mg Hydroxide 15 0 ml 10/11/17 22:44 10/11/17 22:54 ml/ Lidocaine HCl 15 ml PO 10/11/17 22:45 15 ml ONETIME ONE Administration Hydromorphone HCl 0.5 mg 10/11/17 21:11 10/11/17 21:22 Dilaudid IVPUSH 10/11/17 21:12 0.5 mg ONETIME ONE Administration Lactated Ringer's 1,000 mls @ 1,000 mls/hr 10/11/17 20:48 10/11/17 21:10 Ringers, Lactated IV 10/11/17 21:47 1,000 mls/hr BOLUS ONE Administration Metoclopramide HCl 10 mg 10/11/17 20:49 10/11/17 21:11 Reglan IVPUSH 10/11/17 20:50 10 mg ONETIME ONE Administration Ondansetron HCl 4 mg 10/11/17 22:44 10/11/17 22:52 Zofran IVPUSH 10/11/17 22:45 4 mg ONETIME ONE Administration Departure - Departure Time of Disposition: 23:40 Disposition: Home, Self-Care 01 Condition: Fair Clinical Impression: Mild dehydration, Unconjugated benign bilirubinemia, Nausea Gastritis Qualifiers: Gastritis type: unspecified gastritis Chronicity: acute Gastritis bleeding: without bleeding Qualified Code(s): K29.00 - Acute gastritis without bleeding - Discharge Information Referrals: Teresa Holcomb PA [Primary Care Provider] - Forms: ED Department Discharge - My Orders Last 24 Hours: My Active Orders 10/11/17 20:48 Orthostatic Vital Signs [RC] ASDIRECTED 10/11/17 21:58 DRUG SCREEN, URINE [URCHEM] Stat 10/11/17 22:27 Lactated Ringers [Ringers, Lactated] 1,000 ml IV BOLUS 10/11/17 22:36 UA W/MICROSCOPIC [URIN] Stat - Assessment/Plan Last 24 Hours: My Active Orders 10/11/17 20:48 Orthostatic Vital Signs [RC] ASDIRECTED 10/11/17 21:58 DRUG SCREEN, URINE [URCHEM] Stat 10/11/17 22:27 Lactated Ringers [Ringers, Lactated] 1,000 ml IV BOLUS 10/11/17 22:36 UA W/MICROSCOPIC [URIN] Stat
[2017-10-11] MEDS ORDERED: HYDROmorphone 0.5 MG/0.5 ML Syringe IVPUSH ONE (21:11)
[2017-10-11] MEDS ORDERED: Alum Hydrox/Mag Hydrox/Simeth 15 ML, Lidocaine 2% 15 ML PO ONE ×2 (22:44)
[2017-10-11] MEDS ORDERED: Ondansetron 4 MG/2 ML SDV IVPUSH ONE (22:44)
[2017-10-11] MEDS ORDERED: Lidocaine 5% 700 MG Patch TOP ONE (23:12)
== END 2017-10-11 23:37 | disposition home or self-care (01) ==
LOC: JP.ED 19:38
DX: K29.00 Acute gastritis without bleeding (principal); E86.0 Dehydration; E80.7 Disorder of bilirubin metabolism, unspecified; I10 Essential (primary) hypertension; F17.210 Nicotine dependence, cigarettes, uncomplicated; Z88.5 Allergy status to narcotic agent; Z91.041 Radiographic dye allergy status; Z79.899 Other long term (current) drug therapy
CPT/HCPCS: 36415; 80053; 80305; 81001; 82248; 83615; 83690; 85027; 85045; 86140; 96361; 96374; 96375; 99284; A9270; J1170; J2405; J2765; J7120

== ENCOUNTER 2017-10-13 19:37 | Emergency (ER) | payer MEDICAID ==
[2017-10-13] MEDS ORDERED: Alum Hydrox/Mag Hydrox/Simeth 30 ML, Lidocaine 2% 15 ML PO ONE ×2 (21:14)
[2017-10-13] MEDS ORDERED: diphenhydrAMINE 50 MG/ML SDV IVPUSH ONE (21:21)
[2017-10-13] MEDS ORDERED: Iopamidol 612 MG/ML 150 ML Bottle IV SCH (21:30)
[2017-10-13] MEDS ORDERED: Sodium Chloride 0.9% 80 ML IV SCH (21:30)
[2017-10-13] MEDS: Sodium Chloride 0.9% 10 ML Syringe FLUSH PRN ×3 (21:58→22:27)
[2017-10-13] MEDS ORDERED: HYDROmorphone 1 MG/ML Syringe IVPUSH ONE (22:04)
[2017-10-13] MEDS ORDERED: Ondansetron 4 MG/2 ML SDV IVPUSH ONE (22:36)
[2017-10-14] MEDS ORDERED: Pantoprazole 40 MG Tab.CR PO ONE (00:19)
[2017-10-14] MEDS ORDERED: Sucralfate 1 GM Tab PO ONE (00:19)
--- NOTE | 2017-10-14 00:30 | EDM.PDOC ---
ED HPI GENERAL MEDICAL PROBLEM - General Chief Complaint: Abdominal Pain Stated Complaint: ABDOMINAL PAIN Time Seen by Provider: 10/13/17 21:21 Source of Information: Reports: Patient History Limitations: Reports: No Limitations - History of Present Illness INITIAL COMMENTS - FREE TEXT/NARRATIVE: This patient comes in complaining of upper abdominal pain mostly right upper quadrant it's been going on for 3 or 4 days. He has a history of peptic ulcer disease and previous notes from his EGD about a month ago indicated duodenal ulcer. He had been placed on Protonix and Carafate but those ran out he stopped them. He was seen in clinic today they did a hemogram which was normal and a's stool Hemoccult was positive. Because of that he was sent to the emergency department. He did receive a prescription for Protonix today and his father picked it up but he hasn't taken any yet. Noted on his previous visits he had an elevated indirect bilirubin unexplained Lower Abdominal Pain Score (Numeric/FACES): 10 - Related Data Allergies Allergy/AdvReac Type Severity Reaction Status Date / Time meperidine [From Demerol] Allergy Hives Verified 10/11/17 20:05 iv contrast Allergy Severe Anaphylactic Uncoded 10/11/17 20:05 Shock Home Meds: Home Meds Cyanocobalamin (Vitamin B-12) [Vitamin B-12] 1 tab PO DAILY 08/21/17 [History] Gabapentin [Neurontin] 300 mg PO TID 08/21/17 [History] PARoxetine HCl [Paroxetine HCl] 20 mg PO DAILY 08/21/17 [History] Propranolol HCl 20 mg PO TID 08/21/17 [History] clonazePAM [Clonazepam] 1 mg PO TID PRN 08/21/17 [History] risperiDONE 1 mg PO BEDTIME 08/21/17 [History] Amitriptyline [Elavil] 25 mg PO ASDIRECTED 09/07/17 [History] traMADol Hcl/Acetaminophen [Ultracet Tablet] 1 tab PO ASDIRECTED PRN 09/07/17 [ History] Naproxen 500 mg PO BID 10/11/17 [History] predniSONE [Prednisone] 10 mg PO ASDIRECTED 10/11/17 [History] Acetaminophen [Tylenol Arthritis Pain] 650 mg PO ASDIRECTED PRN 10/13/17 [ History] Cyclobenzaprine HCl 10 mg PO ASDIRECTED 10/13/17 [History] Pantoprazole Sodium 40 mg PO DAILY 10/13/17 [History] Past Medical History HEENT History: Reports: Impaired Vision Cardiovascular History: Reports: Arrhythmia, Hypertension Respiratory History: Reports: Pneumothorax Gastrointestinal History: Reports: Other (See Below) Other Gastrointestinal History: ulcers Genitourinary History: Reports: Renal Calculus, Other (See Below) Other Genitourinary History: right kidney reconstruction Musculoskeletal History: Reports: Other (See Below) Other Musculoskeletal History: crush injury left hand, boxer fracture right hand Neurological History: Reports: Concussion, Head Trauma, Migraines Psychiatric History: Reports: Anxiety, Depression Other Psychiatric History: PTSD childhood trauma Dermatologic History: Reports: Other (See Below) Other Dermatologic History: tattoos - Infectious Disease History Infectious Disease History: Reports: Chicken Pox - Past Surgical History HEENT Surgical History: Reports: Oral Surgery GI Surgical History: Reports: Cholecystectomy Male Surgical History: Reports: Renal Calculus, Other (See Below) Other Male Surgeries/Procedures: stents Social & Family History - Family History Family Medical History: Noncontributory GI: Reports: Other (See Below) - Tobacco Use Smoking Status *Q: Heavy Tobacco Smoker Years of Tobacco use: 1 Packs/Tins Daily: 1 Used Tobacco, but Quit: No Second Hand Smoke Exposure: Yes - Caffeine Use Caffeine Use: Reports: Coffee, Energy Drinks, Soda Other Caffeine Use: 16 oz coffee daily - Alcohol Use Days Per Week of Alcohol Use: 1 Number of Drinks Per Day: 4 Total Drinks Per Week: 4 - Recreational Drug Use Recreational Drug Use: No - Living Situation & Occupation Living situation: Reports: with Family (Lives in [facility] with his Immediate family.) Occupation: Employed ED ROS GENERAL - Review of Systems Review Of Systems: ROS reveals no pertinent complaints other than HPI. ED EXAM, GI/ABD - Physical Exam Exam: See Below Exam Limited By: No Limitations General Appearance: Alert, WD/WN, Mild Distress Eyes: Bilateral: Normal Appearance Throat/Mouth: Normal Inspection Neck: Normal Inspection Respiratory/Chest: Lungs Clear Cardiovascular: Regular Rate, Rhythm GI/Abdominal Exam: Other (Bowel sounds are hypoactive. He does seem to have some mild to moderate tenderness in the right upper quadrant mostly no masses were palpable) Rectal (Males) Exam: Normal Exam (Rectal exam was done but there was no stool. The patient did pass a tiny bit of stool which was dark green in color. It did not appear to be melanotic. Hemoccult was not repeated on that stool. The specimen was too small to send for H pylori test) Back Exam: Normal Inspection Extremities: Normal Inspection Neurological: Alert Psychiatric: Normal Affect Course - Vital Signs Last Recorded V/S: Last Vital Signs Temp 36.5 C 10/13/17 20:05 Pulse 74 10/13/17 21:40 Resp 16 10/13/17 21:40 BP 132/79 10/13/17 22:30 Pulse Ox 98 10/13/17 22:30 - Orders/Labs/Meds Orders: Active Orders 24 hr Category Date Time Status Abdomen Pelvis w Cont [CT] Stat Exams 10/13/17 21:13 Taken Saline Lock Insert [OM.PC] Urgent Oth 10/13/17 21:21 Ordered Labs: Laboratory Tests 10/13/17 10/13/17 10/13/17 Range/Units 21:36 21:36 21:36 WBC 8.6 (4.5-11.0) K/uL RBC 5.13 (4.30-5.90) M/uL Hgb 15.9 H (12.0-15.0) g/dL Hct 45.5 (40.0-54.0) % MCV 89 (80-98) fL MCH 31 (27-31) pg MCHC 35 (32-36) % Plt Count 287 (150-400) K/uL Neut % (Auto) 59 (36-66) % Lymph % (Auto) 30 (24-44) % [place] % (Auto) 9 H (2-6) % Eos % (Auto) 1 L (2-4) % Baso % (Auto) 0 (0-1) % Sodium 137 L (140-148) mmol/L Potassium 4.1 (3.6-5.2) mmol/L Chloride 100 (100-108) mmol/L Carbon Dioxide 30 (21-32) mmol/L Anion Gap 11.1 (5.0-14.0) mmol/L BUN 9 D (7-18) mg/dL Creatinine 0.8 (0.8-1.3) mg/dL Est Cr Clr Drug Dosing 151.20 mL/min Estimated GFR (MDRD) > 60 (>60) Glucose 87 (74-106) mg/dL Calcium 9.0 (8.5-10.1) mg/dL Total Bilirubin 0.3 D (0.2-1.0) mg/dL AST 14 L (15-37) U/L ALT 31 (12-78) U/L Alkaline Phosphatase 67 (46-116) U/L Total Protein 7.6 (6.4-8.2) g/dL Albumin 3.9 (3.4-5.0) g/dL Globulin 3.7 H (2.3-3.5) g/dL Albumin/Globulin Ratio 1.1 L (1.2-2.2) Amylase 24 L (25-115) U/L Lipase 121 (73-393) U/L Urine Color Urine Appearance Urine pH (4.5-8.0) Ur Specific [place] (1.008-1.030) Urine Protein (NEGATIVE) mg/dL Urine Glucose (UA) (NEGATIVE) mg/dL Urine Ketones (NEGATIVE) mg/dL Urine Occult Blood (NEGATIVE) Urine Nitrite (NEGAITVE) Urine Bilirubin (NEGATIVE) Urine Urobilinogen (NORMAL) mg/dL Ur Leukocyte Esterase (NEGATIVE) Urine RBC (0-5) Urine WBC (0-5) Ur Epithelial Cells Urine Bacteria Urine Mucus 10/13/17 Range/Units 21:52 WBC (4.5-11.0) K/uL RBC (4.30-5.90) M/uL Hgb (12.0-15.0) g/dL Hct (40.0-54.0) % MCV (80-98) fL MCH (27-31) pg MCHC (32-36) % Plt Count (150-400) K/uL Neut % (Auto) (36-66) % Lymph % (Auto) (24-44) % [place] % (Auto) (2-6) % Eos % (Auto) (2-4) % Baso % (Auto) (0-1) % Sodium (140-148) mmol/L Potassium (3.6-5.2) mmol/L Chloride (100-108) mmol/L Carbon Dioxide (21-32) mmol/L Anion Gap (5.0-14.0) mmol/L BUN (7-18) mg/dL Creatinine (0.8-1.3) mg/dL Est Cr Clr Drug Dosing mL/min Estimated GFR (MDRD) (>60) Glucose (74-106) mg/dL Calcium (8.5-10.1) mg/dL Total Bilirubin (0.2-1.0) mg/dL AST (15-37) U/L ALT (12-78) U/L Alkaline Phosphatase (46-116) U/L Total Protein (6.4-8.2) g/dL Albumin (3.4-5.0) g/dL Globulin (2.3-3.5) g/dL Albumin/Globulin Ratio (1.2-2.2) Amylase (25-115) U/L Lipase (73-393) U/L Urine Color Yellow Urine Appearance Clear Urine pH 7.0 (4.5-8.0) Ur Specific [place] 1.015 (1.008-1.030) Urine Protein Negative (NEGATIVE) mg/dL Urine Glucose (UA) Normal (NEGATIVE) mg/dL Urine Ketones Negative (NEGATIVE) mg/dL Urine Occult Blood Negative (NEGATIVE) Urine Nitrite Negative (NEGAITVE) Urine Bilirubin Negative (NEGATIVE) Urine Urobilinogen Normal (NORMAL) mg/dL Ur Leukocyte Esterase Negative (NEGATIVE) Urine RBC 0-5 (0-5) Urine WBC Not seen (0-5) Ur Epithelial Cells Not seen Urine Bacteria Not seen Urine Mucus Not seen Meds: Medications Discontinued Medications Generic Name Dose Route Start Last Admin Trade Name Freq PRN Reason Stop Dose Admin Al Hydroxide/Mg Hydroxide 30 0 ml 10/13/17 21:14 10/13/17 21:45 ml/ Lidocaine HCl 15 ml PO 10/13/17 21:15 45 ml ONETIME ONE Administration Diphenhydramine HCl 50 mg 10/13/17 21:21 10/13/17 21:41 Benadryl IVPUSH 10/13/17 21:22 50 mg ONETIME ONE Administration Hydromorphone HCl 1 mg 10/13/17 22:04 10/13/17 22:08 Dilaudid IVPUSH 10/13/17 22:05 1 mg ONETIME ONE Administration Sodium Chloride 80 mls @ 3 mls/sec 10/13/17 21:30 10/13/17 22:28 Normal Saline IV 3 mls/sec ASDIRECTED FAISAL Administration Iopamidol 141 ml 10/13/17 21:30 10/13/17 22:28 Isovue-300 (61%) IV 141 ml . DIRECTED FAISAL Administration Ondansetron HCl 4 mg 10/13/17 22:36 10/13/17 22:41 Zofran IVPUSH 10/13/17 22:37 4 mg ONETIME ONE Administration Oxycodone/Acetaminophen 2 tab 10/14/17 01:02 10/14/17 01:07 Percocet 325-5 Mg PO 10/14/17 01:03 2 tab ONETIME ONE Administration Pantoprazole Sodium 40 mg 10/14/17 00:19 10/14/17 00:29 Protonix PO 10/14/17 00:20 40 mg ONETIME ONE Administration Sodium Chloride 10 ml 10/13/17 21:21 10/13/17 22:27 Saline Flush FLUSH 10 ml ASDIRECTED PRN Administration Keep Vein Open Sucralfate 1 gm 10/14/17 00:19 10/14/17 00:29 Carafate PO 10/14/17 00:20 1 gm ONETIME ONE Administration - Radiology Interpretation Free Text/Narrative:: CT scan of the abdomen indicated some thickening of the duodenum and some fat stranding indicating probably they duodenum duodenal ulcer or duodenitis. There was no free air there was a trace of free fluid in the pelvis. - Re-Assessments/Exams Free Text/Narrative Re-Assessment/Exam: 10/14/17 05:44 Initially the patient received a GI cocktail but that did not give any relief. He then received some IV Dilaudid and IV Zofran. Free Text/Narrative Re-Assessment/Exam: 10/14/17 05:45 The patient was prescribed 15 tablets of Percocet to the instruments however that was denied because they said that it had he had been prescribed 8 tablets to the instruments the day before patient says he never got any medications for instruments. Patient was told that he could get the new prescription filled at a local pharmacy for [place]. I was unable to review the prescription monitoring database on this patient Departure - Departure Time of Disposition: 00:27 Disposition: Home, Self-Care 01 Condition: Fair Clinical Impression: Duodenal ulcer - Discharge Information Instructions: Peptic Ulcer, [id number] Referrals: Teresa Holcomb PA [Primary Care Provider] - Forms: ED Department Discharge Additional Instructions: You have a duodenal ulcer. Take the Protonix 40 mg twice daily. Take the Carafate one tablet 30 minutes before meals and at bedtime. You may use the Percocet 5/325, #15 tablets one or 2 every 4 hours as needed for pain. This medication can cause sedation so use with caution is also habit-forming. A test is being done called H pylori. This is for a bacteria in the stomach and intestines that is associated with ulcers. This is something your doctor will need to follow-up. You may need to have antibiotics to help treat the ulcer. Try to see your DrGuero tomorrow or the next day - My Orders Last 24 Hours: My Active Orders 10/13/17 21:13 Abdomen Pelvis w Cont [CT] Stat 10/13/17 21:21 Saline Lock Insert [OM.PC] Urgent - Assessment/Plan Last 24 Hours: My Active Orders 10/13/17 21:13 Abdomen Pelvis w Cont [CT] Stat 10/13/17 21:21 Saline Lock Insert [OM.PC] Urgent
[2017-10-14] MEDS ORDERED: Acetaminophen/oxyCODONE 325-5 MG Tab PO ONE (01:02)
== END 2017-10-14 01:21 | disposition home or self-care (01) ==
LOC: JP.ED 19:37
DX: K26.9 Duodenal ulcer, unspecified as acute or chronic, without hemorrhage or perforation (principal); F17.210 Nicotine dependence, cigarettes, uncomplicated; I10 Essential (primary) hypertension; Z79.899 Other long term (current) drug therapy; Z91.041 Radiographic dye allergy status; Z88.5 Allergy status to narcotic agent
CPT/HCPCS: 36415; 74177; 80053; 81001; 82150; 83690; 85025; 96374; 96375; 99284; A9270; J1170; J1200; J2405; J7030; J7050

== ENCOUNTER 2017-12-20 00:38 | Emergency (ER) | payer MEDICAID ==
[2017-12-20] MEDS ORDERED: Ketorolac 60 MG/2 ML SDV IM ONE (01:13)
--- NOTE | 2017-12-20 01:38 | EDM.PDOC ---
ED HPI GENERAL MEDICAL PROBLEM - General Chief Complaint: Genitourinary Problem Stated Complaint: RIGHT KIDNEY PAIN Time Seen by Provider: 12/20/17 01:05 Source of Information: Reports: Patient History Limitations: Reports: No Limitations - History of Present Illness INITIAL COMMENTS - FREE TEXT/NARRATIVE: 32-year-old male with right flank pain radiating into his right groin for the past 3 days. No fevers or chills, no significant dysuria, no nausea or vomiting. He has a history of kidney stones according to the patient. He looks comfortable. Onset: Unknown/Unsure Location: Reports: Back Severity: Moderate Associated Symptoms: Reports: No Other Symptoms Right Flank Pain Score (Numeric/FACES): 9 - Related Data Allergies Allergy/AdvReac Type Severity Reaction Status Date / Time meperidine [From Demerol] Allergy Hives Verified 12/20/17 03:22 iv contrast Allergy Severe Anaphylactic Uncoded 12/20/17 03:22 Shock Home Meds: Home Meds Cyanocobalamin (Vitamin B-12) [Vitamin B-12] 1 tab PO DAILY 08/21/17 [History] Gabapentin [Neurontin] 300 mg PO TID 08/21/17 [History] PARoxetine HCl [Paroxetine HCl] 40 mg PO DAILY 08/21/17 [History] Propranolol HCl 20 mg PO TID 08/21/17 [History] clonazePAM [Clonazepam] 1 mg PO TID PRN 08/21/17 [History] risperiDONE 2 mg PO BEDTIME 08/21/17 [History] Acetaminophen [Tylenol Arthritis Pain] 650 mg PO ASDIRECTED PRN 10/13/17 [ History] Pantoprazole Sodium 40 mg PO DAILY 10/13/17 [History] Dextroamphetamine/Amphetamine [Adderall 20 mg Tablet] 20 mg PO BID 12/20/17 [ History] Past Medical History HEENT History: Reports: Impaired Vision Cardiovascular History: Reports: Arrhythmia, Hypertension Respiratory History: Reports: Pneumothorax Gastrointestinal History: Reports: Other (See Below) Other Gastrointestinal History: ulcers Genitourinary History: Reports: Renal Calculus, Other (See Below) Other Genitourinary History: right kidney reconstruction Musculoskeletal History: Reports: Other (See Below) Other Musculoskeletal History: crush injury left hand, boxer fracture right hand Neurological History: Reports: Concussion, Head Trauma, Migraines Psychiatric History: Reports: Anxiety, Depression Other Psychiatric History: PTSD childhood trauma Dermatologic History: Reports: Other (See Below) Other Dermatologic History: tattoos - Infectious Disease History Infectious Disease History: Reports: Chicken Pox, Measles, Mumps - Past Surgical History HEENT Surgical History: Reports: Oral Surgery GI Surgical History: Reports: Cholecystectomy Male Surgical History: Reports: Renal Calculus, Other (See Below) Other Male Surgeries/Procedures: stents Musculoskeletal Surgical History: Reports: Other (See Below) Other Musculoskeletal Surgeries/Procedures:: partial amputation l ring finger Social & Family History - Family History Family Medical History: Noncontributory GI: Reports: Other (See Below) - Tobacco Use Smoking Status *Q: Current Every Day Smoker Years of Tobacco use: 18 Packs/Tins Daily: 0.5 Used Tobacco, but Quit: No Second Hand Smoke Exposure: Yes - Caffeine Use Caffeine Use: Reports: Coffee, Energy Drinks, Soda Other Caffeine Use: 16 oz coffee daily - Alcohol Use Days Per Week of Alcohol Use: 0 - Recreational Drug Use Recreational Drug Use: No - Living Situation & Occupation Living situation: Reports: with Family (Lives in [facility] with his Immediate family.) Occupation: Employed ED ROS GENERAL - Review of Systems Review Of Systems: See Below Constitutional: Denies: Fever, Chills Respiratory: Denies: Shortness of Breath Cardiovascular: Denies: Chest Pain GI/Abdominal: Reports: Abdominal Pain. Denies: Constipation, Nausea, Vomiting : Reports: Flank Pain. Denies: Dysuria Skin: Reports: No Symptoms Neurological: Reports: No Symptoms ED EXAM, GENERAL - Physical Exam Exam: See Below Exam Limited By: No Limitations General Appearance: Alert, No Apparent Distress Respiratory/Chest: No Respiratory Distress, Lungs Clear Cardiovascular: Regular Rate, Rhythm GI/Abdominal: Tender (Reacts with tenderness to palpation across the anterior abdomen especially on the right side) Course - Vital Signs Last Recorded V/S: Last Vital Signs Temp 96.5 F 12/20/17 00:58 Pulse 115 H 12/20/17 00:58 Resp 16 12/20/17 00:58 BP 154/86 H 12/20/17 00:58 Pulse Ox 98 12/20/17 00:58 - Orders/Labs/Meds Orders: Active Orders 24 hr Category Date Time Status Abdomen Pelvis wo Cont [CT] Stat Exams 12/20/17 01:13 Taken UA W/MICROSCOPIC [URIN] Urgent Lab 12/20/17 01:13 Ordered Labs: Laboratory Tests 12/20/17 Range/Units 01:13 Urine Color Yellow Urine Appearance Clear Urine pH 7.0 (4.5-8.0) Ur Specific [place] 1.005 L (1.008-1.030) Urine Protein Negative (NEGATIVE) mg/dL Urine Glucose (UA) Normal (NEGATIVE) mg/dL Urine Ketones Negative (NEGATIVE) mg/dL Urine Occult Blood Negative (NEGATIVE) Urine Nitrite Negative (NEGAITVE) Urine Bilirubin Negative (NEGATIVE) Urine Urobilinogen Normal (NORMAL) mg/dL Ur Leukocyte Esterase Negative (NEGATIVE) Urine RBC Not seen (0-5) Urine WBC Not seen (0-5) Ur Epithelial Cells Not seen Amorphous Sediment Moderate Urine Bacteria Not seen Urine Mucus Not seen Meds: Medications Discontinued Medications Generic Name Dose Route Start Last Admin Trade Name Freq PRN Reason Stop Dose Admin Ketorolac Tromethamine 60 mg 12/20/17 01:13 12/20/17 01:22 Toradol IM 12/20/17 01:14 60 mg ONETIME ONE Administration Ondansetron HCl 4 mg 12/20/17 01:53 12/20/17 01:57 Zofran Odt PO 12/20/17 01:54 4 mg ONETIME ONE Administration - Re-Assessments/Exams Free Text/Narrative Re-Assessment/Exam: 12/20/17 01:38 A UA was obtained which was completely clear. 60 mg of Toradol IM was given and the patient was put through the CT scan, abdomen and pelvis without contrast. 12/20/17 02:04 Patient was complaining of some nausea so he was given 4 mg of sublingual Zofran. CT returned without any obstructive uropathy or acute findings. He was given 10 additional doses of Toradol to take 3 times a day. Departure - Departure Time of Disposition: 02:24 Disposition: Home, Self-Care 01 Condition: Good Clinical Impression: Acute flank pain - Discharge Information Instructions: Flank Pain, Adult Referrals: PCP,None [Primary Care Provider] - Forms: ED Department Discharge Care Plan Goals: Take ketorolac 3 times a day until gone, add Tylenol if needed. Recheck in 2-3 days if not improving satisfactorily. - My Orders Last 24 Hours: My Active Orders 12/20/17 01:13 Abdomen Pelvis wo Cont [CT] Stat UA W/MICROSCOPIC [URIN] Urgent - Assessment/Plan Last 24 Hours: My Active Orders 12/20/17 01:13 Abdomen Pelvis wo Cont [CT] Stat UA W/MICROSCOPIC [URIN] Urgent
[2017-12-20] MEDS ORDERED: Ondansetron 4 MG Tab.DIS PO ONE (01:53)
== END 2017-12-20 02:25 | disposition home or self-care (01) ==
LOC: JP.ED 00:38
DX: R10.31 Right lower quadrant pain (principal); I10 Essential (primary) hypertension; F17.210 Nicotine dependence, cigarettes, uncomplicated; Z87.442 Personal history of urinary calculi; Z79.899 Other long term (current) drug therapy; E87.6 Hypokalemia; R10.30 Lower abdominal pain, unspecified; Z91.041 Radiographic dye allergy status; Z88.8 Allergy status to other drugs, medicaments and biological substances
CPT/HCPCS: 36415; 74176; 80053; 81001; 85025; 96372; 99284; A9270; J1885

== ENCOUNTER 2017-12-20 03:00 | Emergency (ER) | payer MEDICAID ==
--- NOTE | 2017-12-20 03:38 | EDM.PDOC ---
ED HPI GENERAL MEDICAL PROBLEM - General Chief Complaint: Genitourinary Problem Stated Complaint: RIGHT KIDNEY PAIN - 2ND VISIT Time Seen by Provider: 12/20/17 03:25 Source of Information: Reports: Patient History Limitations: Reports: No Limitations - History of Present Illness INITIAL COMMENTS - FREE TEXT/NARRATIVE: 32-year-old male just left the emergency room within the last hour with right flank pain, complaining of a "kidney stone" and wanting pain medication. When his workup was negative including a negative urine and negative CT scan, he insisted further evaluation and treatment because he wasn't getting better. He did not appear to be in any discomfort. He called the phone nurse who according to the patient told him to come back and get reevaluated. He now claims he has a bruise on his right anterior abdomen, it was in the area that I examined an hour ago that looked normal. Onset: Unknown/Unsure right sided kidney pain Pain Score (Numeric/FACES): 10 - Related Data Allergies Allergy/AdvReac Type Severity Reaction Status Date / Time meperidine [From Demerol] Allergy Hives Verified 12/20/17 03:22 iv contrast Allergy Severe Anaphylactic Uncoded 12/20/17 03:22 Shock Home Meds: Home Meds Cyanocobalamin (Vitamin B-12) [Vitamin B-12] 1 tab PO DAILY 08/21/17 [History] Gabapentin [Neurontin] 300 mg PO TID 08/21/17 [History] PARoxetine HCl [Paroxetine HCl] 40 mg PO DAILY 08/21/17 [History] Propranolol HCl 20 mg PO TID 08/21/17 [History] clonazePAM [Clonazepam] 1 mg PO TID PRN 08/21/17 [History] risperiDONE 2 mg PO BEDTIME 08/21/17 [History] Acetaminophen [Tylenol Arthritis Pain] 650 mg PO ASDIRECTED PRN 10/13/17 [ History] Pantoprazole Sodium 40 mg PO DAILY 10/13/17 [History] Dextroamphetamine/Amphetamine [Adderall 20 mg Tablet] 20 mg PO BID 12/20/17 [ History] Past Medical History HEENT History: Reports: Impaired Vision Cardiovascular History: Reports: Arrhythmia, Hypertension Respiratory History: Reports: Pneumothorax Gastrointestinal History: Reports: Other (See Below) Other Gastrointestinal History: ulcers Genitourinary History: Reports: Renal Calculus, Other (See Below) Other Genitourinary History: right kidney reconstruction Musculoskeletal History: Reports: Other (See Below) Other Musculoskeletal History: crush injury left hand, boxer fracture right hand Neurological History: Reports: Concussion, Head Trauma, Migraines Psychiatric History: Reports: Anxiety, Depression Other Psychiatric History: PTSD childhood trauma Dermatologic History: Reports: Other (See Below) Other Dermatologic History: tattoos - Infectious Disease History Infectious Disease History: Reports: Chicken Pox, Measles, Mumps - Past Surgical History HEENT Surgical History: Reports: Oral Surgery GI Surgical History: Reports: Cholecystectomy Male Surgical History: Reports: Renal Calculus, Other (See Below) Other Male Surgeries/Procedures: stents Musculoskeletal Surgical History: Reports: Other (See Below) Other Musculoskeletal Surgeries/Procedures:: partial amputation l ring finger Social & Family History - Family History Family Medical History: Noncontributory GI: Reports: Other (See Below) - Tobacco Use Smoking Status *Q: Current Every Day Smoker Years of Tobacco use: 18 Packs/Tins Daily: 0.5 - Caffeine Use Caffeine Use: Reports: Coffee, Energy Drinks, Soda Other Caffeine Use: 16 oz coffee daily - Recreational Drug Use Recreational Drug Use: No - Living Situation & Occupation Living situation: Reports: with Family (Lives in [facility] with his Immediate family.) Occupation: Employed ED ROS GENERAL - Review of Systems Review Of Systems: See Below Constitutional: Denies: Fever, Chills HEENT: Reports: No Symptoms Respiratory: Denies: Shortness of Breath GI/Abdominal: Reports: Abdominal Pain : Reports: Dysuria Skin: Reports: Bruising Neurological: Denies: Headache ED EXAM, GI/ABD - Physical Exam Exam: See Below Exam Limited By: No Limitations General Appearance: Alert, No Apparent Distress Eyes: Bilateral: Normal Appearance Respiratory/Chest: No Respiratory Distress Cardiovascular: Regular Rate, Rhythm GI/Abdominal Exam: Tender (Again reacts with tenderness to palpation, also across the lower abdomen.) (Male) Exam: No Hernia, Other (Reacted with tenderness to scrotal palpation although his exam is otherwise normal) Neurological: Alert Skin Exam: Other (He now has a reddened area on the anterior aspect of the right abdomen which was not present earlier) Course - Vital Signs Last Recorded V/S: Last Vital Signs Temp 96.1 F 12/20/17 03:18 Pulse 78 12/20/17 03:18 Resp 14 12/20/17 03:18 BP 150/106 H 12/20/17 03:18 Pulse Ox 98 12/20/17 03:18 - Orders/Labs/Meds Labs: Laboratory Tests 12/20/17 12/20/17 Range/Units 03:41 03:41 WBC 7.5 (4.5-11.0) K/uL RBC 4.47 (4.30-5.90) M/uL Hgb 13.9 D (12.0-15.0) g/dL Hct 40.4 (40.0-54.0) % MCV 90 (80-98) fL MCH 31 (27-31) pg MCHC 34 (32-36) % Plt Count 249 (150-400) K/uL Neut % (Auto) 49 (36-66) % Lymph % (Auto) 38 (24-44) % [place] % (Auto) 10 H (2-6) % Eos % (Auto) 3 (2-4) % Baso % (Auto) 0 (0-1) % Sodium 140 (140-148) mmol/L Potassium 3.2 L (3.6-5.2) mmol/L Chloride 103 (100-108) mmol/L Carbon Dioxide 26 (21-32) mmol/L Anion Gap 14.2 H (5.0-14.0) mmol/L BUN 10 (7-18) mg/dL Creatinine 1.0 (0.8-1.3) mg/dL Est Cr Clr Drug Dosing 117.48 mL/min Estimated GFR (MDRD) > 60 (>60) Glucose 91 (74-106) mg/dL Calcium 8.4 L (8.5-10.1) mg/dL Total Bilirubin 0.3 (0.2-1.0) mg/dL AST 22 (15-37) U/L ALT 52 (12-78) U/L Alkaline Phosphatase 79 (46-116) U/L Total Protein 7.0 (6.4-8.2) g/dL Albumin 3.8 (3.4-5.0) g/dL Globulin 3.2 (2.3-3.5) g/dL Albumin/Globulin Ratio 1.2 (1.2-2.2) - Re-Assessments/Exams Free Text/Narrative Re-Assessment/Exam: 12/20/17 03:38 CBC and CMP were obtained. 12/20/17 04:13 CBC is normal, CMP is also normal other than a potassium slightly low at 3.2. He was encouraged to eat 1-2 bananas a day and continue with the anti- inflammatory medication he was given earlier. He can recheck with his regular doctor next week. Departure - Departure Time of Disposition: 04:35 Disposition: Home, Self-Care 01 Condition: Good Clinical Impression: Flank pain, Hypokalemia - Discharge Information Instructions: Potassium Content of Foods Referrals: PCP,None [Primary Care Provider] - Forms: ED Department Discharge Care Plan Goals: Resuming medications as prescribed earlier. Focus your diet on better potassium intake, and recheck with your regular doctor this week if not improving.
== END 2017-12-20 04:35 | disposition home or self-care (01) ==
LOC: JP.ED 03:00
DX: E87.6 Hypokalemia (principal); R10.30 Lower abdominal pain, unspecified; I10 Essential (primary) hypertension; F17.210 Nicotine dependence, cigarettes, uncomplicated; Z91.041 Radiographic dye allergy status; Z88.8 Allergy status to other drugs, medicaments and biological substances; Z79.899 Other long term (current) drug therapy
CPT/HCPCS: 36415; 80053; 85025; 99284

== ENCOUNTER 2017-12-21 20:33 | Emergency (ER) | payer MEDICAID ==
[2017-12-21] MEDS ORDERED: Ondansetron 4 MG Tab.DIS PO ONE (22:17)
[2017-12-21] MEDS ORDERED: Sodium Chloride 0.9% 10 ML Syringe FLUSH PRN (22:18)
[2017-12-21] MEDS ORDERED: Ketorolac 30 MG/ML SDV IVPUSH ONE (22:20)
--- NOTE | 2017-12-21 22:25 | EDM.PDOC ---
ED HPI GENERAL MEDICAL PROBLEM - General Chief Complaint: Abdominal Pain Stated Complaint: ABD PAIN & NAUSE NOT GETTING BETTER Time Seen by Provider: 12/21/17 22:10 Source of Information: Reports: Patient, Old Records History Limitations: Reports: No Limitations - History of Present Illness INITIAL COMMENTS - FREE TEXT/NARRATIVE: 32 yo male presents with R sided abdominal pain that has been present since at least last Thursday. Was seen on Thursday here in the ER and nothing was found. Sx' s are the same now as Thursday, but worse. Was seen in the clinic earlier today and nothing was done, they told him they could not do anything for him. Reports vomiting, diarrhea, black stools, and radiation of the pain to his penis. No rash. "Everything makes the pain worse". Onset: Gradual Onset Date: 12/18/17 Duration: Day(s):, Waxing/Waning Location: Reports: Abdomen Quality: Reports: Ache Severity: Moderate Improves with: Reports: None Worsens with: Reports: Other (unknown) Context: Reports: Other (Recent negative work up for the same. ) Associated Symptoms: Reports: Nausea/Vomiting. 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 (see below) (none) Right Lower Abdomen Pain Score (Numeric/FACES): 0 - Related Data Allergies Allergy/AdvReac Type Severity Reaction Status Date / Time meperidine [From Demerol] Allergy Hives Verified 12/21/17 21:49 iv contrast Allergy Severe Anaphylactic Uncoded 12/21/17 21:49 Shock Home Meds: Home Meds Cyanocobalamin (Vitamin B-12) [Vitamin B-12] 1 tab PO DAILY 08/21/17 [History] Gabapentin [Neurontin] 300 mg PO TID 08/21/17 [History] PARoxetine HCl [Paroxetine HCl] 40 mg PO DAILY 08/21/17 [History] Propranolol HCl 20 mg PO TID 08/21/17 [History] clonazePAM [Clonazepam] 1 mg PO TID PRN 08/21/17 [History] risperiDONE 2 mg PO BEDTIME 08/21/17 [History] Acetaminophen [Tylenol Arthritis Pain] 650 mg PO ASDIRECTED PRN 10/13/17 [ History] Pantoprazole Sodium 40 mg PO DAILY 10/13/17 [History] Dextroamphetamine/Amphetamine [Adderall 20 mg Tablet] 20 mg PO BID 12/20/17 [ History] Past Medical History HEENT History: Reports: Impaired Vision Cardiovascular History: Reports: Arrhythmia, Hypertension Respiratory History: Reports: Pneumothorax Gastrointestinal History: Reports: Other (See Below) Other Gastrointestinal History: ulcers Genitourinary History: Reports: Renal Calculus, Other (See Below) Other Genitourinary History: right kidney reconstruction Musculoskeletal History: Reports: Other (See Below) Other Musculoskeletal History: crush injury left hand, boxer fracture right hand Neurological History: Reports: Concussion, Head Trauma, Migraines Psychiatric History: Reports: Anxiety, Depression Other Psychiatric History: PTSD childhood trauma Dermatologic History: Reports: Other (See Below) Other Dermatologic History: tattoos - Infectious Disease History Infectious Disease History: Reports: Chicken Pox - Past Surgical History HEENT Surgical History: Reports: Oral Surgery GI Surgical History: Reports: Cholecystectomy Male Surgical History: Reports: Renal Calculus, Other (See Below) Other Male Surgeries/Procedures: stents Musculoskeletal Surgical History: Reports: Other (See Below) Other Musculoskeletal Surgeries/Procedures:: partial amputation l ring finger Social & Family History - Family History Family Medical History: Noncontributory GI: Reports: Other (See Below) - Tobacco Use Smoking Status *Q: Current Every Day Smoker Years of Tobacco use: 19 Packs/Tins Daily: 0.5 Used Tobacco, but Quit: No Second Hand Smoke Exposure: Yes - Caffeine Use Caffeine Use: Reports: Coffee, Energy Drinks, Soda, Tea Other Caffeine Use: 16 oz coffee daily - Alcohol Use Days Per Week of Alcohol Use: 0 - Recreational Drug Use Recreational Drug Use: No - Living Situation & Occupation Living situation: Reports: with Family (Lives in [place] with his Immediate family.) Occupation: Employed ED ROS GENERAL - Review of Systems Review Of Systems: See Below Constitutional: Reports: No Symptoms HEENT: Reports: No Symptoms Respiratory: Reports: No Symptoms Cardiovascular: Reports: No Symptoms Endocrine: Reports: No Symptoms GI/Abdominal: Reports: Abdominal Pain, Black Stool, Diarrhea, Melena, Nausea, Vomiting. Denies: Bloody Stool, Constipation, Distension, Flatus, Hematemesis, Hematochezia : Reports: Other (pain radiation to his penis) Musculoskeletal: Reports: No Symptoms Skin: Reports: No Symptoms Neurological: Reports: No Symptoms ED EXAM, GI/ABD - Physical Exam Exam: See Below Exam Limited By: No Limitations General Appearance: Alert, WD/WN, No Apparent Distress Eyes: Bilateral: Normal Appearance Ears: Normal External Exam, Normal Canal, Hearing Grossly Normal Nose: Normal Inspection, Normal Mucosa, No Blood Throat/Mouth: Normal Inspection, Normal Lips, Normal Oropharynx, Normal Voice, No Airway Compromise Head: Atraumatic, Normocephalic Neck: Normal Inspection, Supple Respiratory/Chest: No Respiratory Distress, Lungs Clear, Normal Breath Sounds, No Accessory Muscle Use Cardiovascular: Regular Rate, Rhythm, No Edema GI/Abdominal Exam: Normal Bowel Sounds, Soft, No Distention, Tender (R side of his abdomen.) Back Exam: Normal Inspection. No: CVA Tenderness (R), CVA Tenderness (L) Extremities: Normal Inspection, Normal Range of Motion, Non-Tender, No Pedal Edema Neurological: Alert, Oriented, CN II-XII Intact, Normal Cognition, No Motor/ Sensory Deficits Psychiatric: Normal Affect, Normal Mood Skin Exam: Warm, Dry, Intact, Normal Color, No Rash Lymphatic: No Adenopathy Course - Vital Signs Last Recorded V/S: Last Vital Signs Temp 36.2 C 12/21/17 22:02 Pulse 95 12/21/17 22:02 Resp 16 12/21/17 22:02 BP 148/87 H 12/21/17 22:02 Pulse Ox 100 12/21/17 22:02 Orthostatic Blood Pressure [ 140/98 Standing] Orthostatic Blood Pressure [ 146/90 Sitting] Orthostatic Blood Pressure [ 122/77 Supine] - Orders/Labs/Meds Orders: Active Orders 24 hr Category Date Time Status Orthostatic Vital Signs [RC] ASDIRECTED Care 12/21/17 22:17 Active Hemoccult [OCCULT BLOOD DIAGNOSTIC] [OP] Stat Lab 12/21/17 23:14 Ordered UA W/MICROSCOPIC [URIN] Stat Lab 12/21/17 22:29 Ordered Sodium Chloride 0.9% [Saline Flush] Med 12/21/17 22:18 Active 10 ml FLUSH ASDIRECTED PRN Saline Lock Insert [OM.PC] Routine Oth 12/21/17 22:18 Ordered Medication Orders Sodium Chloride (Saline Flush) 10 ml FLUSH ASDIRECTED PRN PRN Reason: Keep Vein Open Last Admin: 12/21/17 22:56 Dose: 10 ml Labs: Laboratory Tests 12/21/17 12/21/17 12/21/17 Range/Units 22:29 22:29 22:29 WBC 6.8 (4.5-11.0) K/uL RBC 4.80 (4.30-5.90) M/uL Hgb 14.9 (12.0-15.0) g/dL Hct 43.5 (40.0-54.0) % MCV 91 (80-98) fL MCH 31 (27-31) pg MCHC 34 (32-36) % Plt Count 295 (150-400) K/uL Sodium 143 (140-148) mmol/L Potassium 4.0 (3.6-5.2) mmol/L Chloride 105 (100-108) mmol/L Carbon Dioxide 28 (21-32) mmol/L Anion Gap 9.7 (5.0-14.0) mmol/L BUN 8 (7-18) mg/dL Creatinine 0.9 (0.8-1.3) mg/dL Est Cr Clr Drug Dosing 130.53 mL/min Estimated GFR (MDRD) > 60 (>60) Glucose 76 (74-106) mg/dL Calcium 8.9 (8.5-10.1) mg/dL Urine Color Yellow Urine Appearance Clear Urine pH 8.0 (4.5-8.0) Ur Specific [place] 1.015 (1.008-1.030) Urine Protein Negative (NEGATIVE) mg/dL Urine Glucose (UA) Normal (NEGATIVE) mg/dL Urine Ketones Negative (NEGATIVE) mg/dL Urine Occult Blood Moderate (NEGATIVE) Urine Nitrite Negative (NEGAITVE) Urine Bilirubin Negative (NEGATIVE) Urine Urobilinogen Normal (NORMAL) mg/dL Ur Leukocyte Esterase Negative (NEGATIVE) Urine RBC 0-5 (0-5) Urine WBC 0-5 (0-5) Ur Epithelial Cells Rare Amorphous Sediment Not seen Urine Bacteria Few Urine Mucus Not seen Meds: Medications Generic Name Dose Route Start Last Admin Trade Name Freq PRN Reason Stop Dose Admin Sodium Chloride 10 ml 12/21/17 22:18 12/21/17 22:56 Saline Flush FLUSH 10 ml ASDIRECTED PRN Administration Keep Vein Open Discontinued Medications Generic Name Dose Route Start Last Admin Trade Name Freq PRN Reason Stop Dose Admin Ketorolac Tromethamine 30 mg 12/21/17 22:20 12/21/17 22:55 Toradol IVPUSH 12/21/17 22:21 30 mg ONETIME ONE Administration Ondansetron HCl 4 mg 12/21/17 22:17 12/21/17 22:55 Zofran Odt PO 12/21/17 22:18 4 mg ONETIME ONE Administration Departure - Departure Time of Disposition: 23:35 Disposition: Home, Self-Care 01 Condition: Good Clinical Impression: Abdominal pain Qualifiers: Abdominal location: generalized Qualified Code(s): R10.84 - Generalized abdominal pain - Discharge Information Referrals: Teresa Holcomb PA [Primary Care Provider] - Forms: ED Department Discharge - My Orders Last 24 Hours: My Active Orders 12/21/17 22:17 Orthostatic Vital Signs [RC] ASDIRECTED 12/21/17 22:18 Sodium Chloride 0.9% [Saline Flush] 10 ml FLUSH ASDIRECTED PRN Saline Lock Insert [OM.PC] Routine 12/21/17 22:29 UA W/MICROSCOPIC [URIN] Stat 12/21/17 23:14 Hemoccult [OCCULT BLOOD DIAGNOSTIC] [OP] Stat - Assessment/Plan Last 24 Hours: My Active Orders 12/21/17 22:17 Orthostatic Vital Signs [RC] ASDIRECTED 12/21/17 22:18 Sodium Chloride 0.9% [Saline Flush] 10 ml FLUSH ASDIRECTED PRN Saline Lock Insert [OM.PC] Routine 12/21/17 22:29 UA W/MICROSCOPIC [URIN] Stat 12/21/17 23:14 Hemoccult [OCCULT BLOOD DIAGNOSTIC] [OP] Stat
== END 2017-12-21 23:46 | disposition home or self-care (01) ==
LOC: JP.ED 20:33
DX: R10.84 Generalized abdominal pain (principal); R10.31 Right lower quadrant pain; F17.210 Nicotine dependence, cigarettes, uncomplicated; I10 Essential (primary) hypertension; F41.9 Anxiety disorder, unspecified; F32.9 Major depressive disorder, single episode, unspecified; Z79.899 Other long term (current) drug therapy; Z88.6 Allergy status to analgesic agent; Z91.041 Radiographic dye allergy status
CPT/HCPCS: 36415; 80048; 81001; 82272; 85027; 96374; 99284; A9270; J1885; J7050

== ENCOUNTER 2018-01-09 03:47 | Emergency (ER) | payer MEDICAID ==
[2018-01-09] MEDS ORDERED: diphenhydrAMINE 50 MG/ML SDV IVPUSH ONE (04:15)
[2018-01-09] MEDS ORDERED: Ondansetron 4 MG/2 ML SDV IVPUSH ONE (04:15)
[2018-01-09] MEDS ORDERED: fentaNYL 100 MCG/2 ML SDV IVPUSH ONE ×2 (04:15→05:35)
--- NOTE | 2018-01-09 04:25 | EDM.PDOC ---
ED HPI GENERAL MEDICAL PROBLEM - General Chief Complaint: Head Injury Stated Complaint: FALL VIA [place]TH Time Seen by Provider: 01/09/18 04:09 Source of Information: Reports: Patient, Old Records, RN Notes Reviewed History Limitations: Reports: No Limitations - History of Present Illness INITIAL COMMENTS - FREE TEXT/NARRATIVE: 32-year-old gentleman presents to the emergency department today following trauma via EMS services. He states that he has fallen down the stairs slipped at the top step estimates a flight of approximately 20 steps loss of consciousness unknown period of time awoke at the bottom of the stairs called EMS services for help. He is complaining of headache, neck pain, chest pain left side and left flank pain. Review of medical records show this gentleman was evaluated for abdominal pain earlier this month 3 different facilities underwent blood work and CAT scan at 2 facilities, requesting narcotics no etiology for the abdominal pain was discovered. Head Pain Score (Numeric/FACES): 9 - Related Data Allergies Allergy/AdvReac Type Severity Reaction Status Date / Time meperidine [From Demerol] Allergy Hives Verified 01/09/18 03:49 iv contrast Allergy Severe Anaphylactic Uncoded 01/09/18 03:49 Shock Home Meds: Home Meds Cyanocobalamin (Vitamin B-12) [Vitamin B-12] 1,000 mcg PO DAILY 08/21/17 [ History] Gabapentin [Neurontin] 300 mg PO TID 08/21/17 [History] PARoxetine HCl [Paroxetine HCl] 40 mg PO DAILY 08/21/17 [History] Propranolol HCl 20 mg PO TID 08/21/17 [History] clonazePAM [Clonazepam] 1 mg PO TID PRN 08/21/17 [History] risperiDONE 2 mg PO BEDTIME 08/21/17 [History] Acetaminophen [Tylenol Arthritis Pain] 650 mg PO ASDIRECTED PRN 10/13/17 [ History] Pantoprazole Sodium 40 mg PO DAILY 10/13/17 [History] Dextroamphetamine/Amphetamine [Adderall 20 mg Tablet] 40 mg PO BID 12/20/17 [ History] Dicyclomine [Bentyl] 20 mg PO QIDACANDBED PRN #14 tab 12/21/17 [Rx] Past Medical History HEENT History: Reports: Impaired Vision Cardiovascular History: Reports: Arrhythmia, Hypertension Respiratory History: Reports: Pneumothorax Gastrointestinal History: Reports: Other (See Below) Other Gastrointestinal History: ulcers Genitourinary History: Reports: Renal Calculus, Other (See Below) Other Genitourinary History: right kidney reconstruction Musculoskeletal History: Reports: Other (See Below) Other Musculoskeletal History: crush injury left hand, boxer fracture right hand Neurological History: Reports: Concussion, Head Trauma, Migraines Psychiatric History: Reports: Anxiety, Depression Other Psychiatric History: PTSD childhood trauma Dermatologic History: Reports: Other (See Below) Other Dermatologic History: tattoos - Infectious Disease History Infectious Disease History: Reports: Chicken Pox - Past Surgical History HEENT Surgical History: Reports: Oral Surgery GI Surgical History: Reports: Cholecystectomy Male Surgical History: Reports: Renal Calculus, Other (See Below) Other Male Surgeries/Procedures: stents Musculoskeletal Surgical History: Reports: Other (See Below) Other Musculoskeletal Surgeries/Procedures:: partial amputation l ring finger Social & Family History - Family History Family Medical History: Noncontributory GI: Reports: Other (See Below) - Tobacco Use Smoking Status *Q: Current Every Day Smoker Years of Tobacco use: 20 Packs/Tins Daily: 0.5 - Caffeine Use Caffeine Use: Reports: Coffee Other Caffeine Use: 16 oz coffee daily - Recreational Drug Use Recreational Drug Use: No - Living Situation & Occupation Living situation: Reports: with Family (Lives in [facility] with his Immediate family.) Occupation: Employed ED ROS GENERAL - Review of Systems Review Of Systems: See Below Constitutional: Reports: No Symptoms HEENT: Reports: No Symptoms Respiratory: Reports: No Symptoms Cardiovascular: Reports: Chest Pain GI/Abdominal: Reports: Abdominal Pain, Nausea. Denies: Vomiting : Reports: No Symptoms Musculoskeletal: Reports: Neck Pain, Hand Pain Skin: Reports: No Symptoms Neurological: Reports: No Symptoms ED EXAM, HEAD INJURY - Physical Exam Exam: See Below Text/Narrative:: Primary survey, GCS of 15 airway is open patent clear lungs are clear to auscultation bilaterally cardiovascular demonstrates regular rate and rhythm S1 and S2 Secondary survey General: Male, not in any distress, GCS of 15, alert and oriented x3 HEENT: head is atraumatic normocephalic, eyes pupils equal round reactive to light, sclera clear no conjunctivitis appreciated. Ears tympanic membranes clear and nolasco landmarks and light reflex are present bilaterally canals are clear. Nose no septal deviation, nares are clear, no blood present. Mouth mucosa is moist and pink no erythema or exudate noted in soft palate, tongue is midline uvula is midline, dentition is intact. Neck: Supple no thyromegaly no tracheal deviation. There is tenderness to palpation both spinally and paraspinally on the posterior aspect Nodes: Cervical nodes subclavicular nodes nontender no palpable lymphadenopathy noted. Lungs: clear to auscultation bilaterally with symmetrical respirations, no adventitious noise appreciated. CV: Regular rate and rhythm S1 and S2 appreciated no murmurs rubs or gallops noted. Chest is tender to palpation along the left side Abdomen: Soft, tender along the left flank, no palpable masses or organomegaly appreciated, no distention no guarding bowel sounds are present, Neuro: Cranial nerves II through XII grossly intact Skin: Warm and dry, intact I cannot find any fresh bruising on his entire body that is appropriate for the level of trauma described Extremities: Tenderness over the left thumb area right wrist is nontender elbows negative shoulders negative, pelvic rock's is negative, no tenderness at the knees or ankles bilaterally Course - Vital Signs Last Recorded V/S: Last Vital Signs Temp 97.2 F 01/09/18 03:51 Pulse 87 01/09/18 03:51 Resp 16 01/09/18 03:51 BP 136/87 01/09/18 03:51 Pulse Ox 94 L 01/09/18 03:51 - Orders/Labs/Meds Orders: Active Orders 24 hr Category Date Time Status Peripheral IV Care [RC] . DIRECTED Care 01/09/18 04:16 Active Cervical Spine wo Cont [CT] Stat Exams 01/09/18 04:15 Taken Chest Abdomen Pelvis w Cont [CT] Stat Exams 01/09/18 04:15 Taken Hand Comp Min 3V Lt [CR] Stat Exams 01/09/18 04:22 Ordered Head wo Cont [CT] Stat Exams 01/09/18 04:15 Taken DRUG SCREEN, URINE [URCHEM] Stat Lab 01/09/18 04:15 Ordered UA W/MICROSCOPIC [URIN] Stat Lab 01/09/18 04:15 Ordered Iopamidol [Isovue-300 (61%)] Med 01/09/18 04:48 Active 142 ml IV . DIRECTED PRN Sodium Chloride 0.9% [Normal Saline] 83 ml Med 01/09/18 05:00 Active IV ASDIRECTED Sodium Chloride 0.9% [Saline Flush] Med 01/09/18 04:15 Active 10 ml FLUSH ASDIRECTED PRN Peripheral IV Insertion Adult [OM.PC] Urgent Oth 01/09/18 04:15 Ordered Medication Orders Sodium Chloride (Normal Saline) 83 mls @ 3.5 mls/sec IV ASDIRECTED FAISAL Last Admin: 01/09/18 05:21 Dose: 3.5 mls/sec Iopamidol (Isovue-300 (61%)) 142 ml IV . DIRECTED PRN PRN Reason: RADIOLOGY EXAM Stop: 01/10/18 04:49 Last Admin: 01/09/18 05:22 Dose: 142 ml Sodium Chloride (Saline Flush) 10 ml FLUSH ASDIRECTED PRN PRN Reason: Keep Vein Open Last Admin: 01/09/18 05:46 Dose: 10 ml Admin: 01/09/18 05:21 Dose: 10 ml Admin: 01/09/18 04:26 Dose: 10 ml Labs: Laboratory Tests 01/09/18 01/09/18 01/09/18 Range/Units 04:15 04:15 04:15 WBC 7.3 (4.5-11.0) K/uL RBC 4.68 (4.30-5.90) M/uL Hgb 14.7 (12.0-15.0) g/dL Hct 41.4 (40.0-54.0) % MCV 89 (80-98) fL MCH 31 (27-31) pg MCHC 36 (32-36) % Plt Count 249 (150-400) K/uL Neut % (Auto) 51 (36-66) % Lymph % (Auto) 35 (24-44) % [place] % (Auto) 10 H (2-6) % Eos % (Auto) 3 (2-4) % Baso % (Auto) 0 (0-1) % Sodium (140-148) mmol/L Potassium (3.6-5.2) mmol/L Chloride (100-108) mmol/L Carbon Dioxide (21-32) mmol/L Anion Gap (5.0-14.0) mmol/L BUN (7-18) mg/dL Creatinine (0.8-1.3) mg/dL Est Cr Clr Drug Dosing mL/min Estimated GFR (MDRD) (>60) Glucose (74-106) mg/dL Calcium (8.5-10.1) mg/dL Total Bilirubin (0.2-1.0) mg/dL AST (15-37) U/L ALT (12-78) U/L Alkaline Phosphatase (46-116) U/L Total Protein (6.4-8.2) g/dL Albumin (3.4-5.0) g/dL Globulin (2.3-3.5) g/dL Albumin/Globulin Ratio (1.2-2.2) Urine Color Yellow Urine Appearance Clear Urine pH 5.0 (4.5-8.0) Ur Specific [place] 1.015 (1.008-1.030) Urine Protein Negative (NEGATIVE) mg/dL Urine Glucose (UA) Normal (NEGATIVE) mg/dL Urine Ketones Negative (NEGATIVE) mg/dL Urine Occult Blood Negative (NEGATIVE) Urine Nitrite Negative (NEGAITVE) Urine Bilirubin Negative (NEGATIVE) Urine Urobilinogen Normal (NORMAL) mg/dL Ur Leukocyte Esterase Negative (NEGATIVE) Urine RBC Not seen (0-5) Urine WBC Not seen (0-5) Ur Epithelial Cells Rare Amorphous Sediment Not seen Urine Bacteria Not seen Urine Mucus Not seen Urine Opiates Screen Negative (NEGATIVE) Ur Oxycodone Screen Negative (NEGATIVE) Urine Methadone Screen Negative (NEGATIVE) Ur Propoxyphene Screen Negative (NEGATIVE) Ur Barbiturates Screen Negative (NEGATIVE) Ur Tricyclics Screen Negative (NEGATIVE) Ur Phencyclidine Scrn Negative (NEGATIVE) Ur Amphetamine Screen Negative (NEGATIVE) U Methamphetamines Scrn Negative (NEGATIVE) Urine MDMA Screen Negative (NEGATIVE) U Benzodiazepines Scrn Positive H (NEGATIVE) U Cocaine Metab Screen Negative (NEGATIVE) U Marijuana (THC) Screen Negative (NEGATIVE) Ethyl Alcohol mg/dL 01/09/18 01/09/18 Range/Units 04:27 04:27 WBC (4.5-11.0) K/uL RBC (4.30-5.90) M/uL Hgb (12.0-15.0) g/dL Hct (40.0-54.0) % MCV (80-98) fL MCH (27-31) pg MCHC (32-36) % Plt Count (150-400) K/uL Neut % (Auto) (36-66) % Lymph % (Auto) (24-44) % [place] % (Auto) (2-6) % Eos % (Auto) (2-4) % Baso % (Auto) (0-1) % Sodium 139 L (140-148) mmol/L Potassium 3.7 (3.6-5.2) mmol/L Chloride 104 (100-108) mmol/L Carbon Dioxide 25 (21-32) mmol/L Anion Gap 13.7 (5.0-14.0) mmol/L BUN 11 (7-18) mg/dL Creatinine 1.0 (0.8-1.3) mg/dL Est Cr Clr Drug Dosing 117.48 mL/min Estimated GFR (MDRD) > 60 (>60) Glucose 118 H (74-106) mg/dL Calcium 9.3 (8.5-10.1) mg/dL Total Bilirubin 0.2 (0.2-1.0) mg/dL AST 19 (15-37) U/L ALT 47 (12-78) U/L Alkaline Phosphatase 78 (46-116) U/L Total Protein 7.1 (6.4-8.2) g/dL Albumin 3.6 (3.4-5.0) g/dL Globulin 3.5 (2.3-3.5) g/dL Albumin/Globulin Ratio 1.0 L (1.2-2.2) Urine Color Urine Appearance Urine pH (4.5-8.0) Ur Specific [place] (1.008-1.030) Urine Protein (NEGATIVE) mg/dL Urine Glucose (UA) (NEGATIVE) mg/dL Urine Ketones (NEGATIVE) mg/dL Urine Occult Blood (NEGATIVE) Urine Nitrite (NEGAITVE) Urine Bilirubin (NEGATIVE) Urine Urobilinogen (NORMAL) mg/dL Ur Leukocyte Esterase (NEGATIVE) Urine RBC (0-5) Urine WBC (0-5) Ur Epithelial Cells Amorphous Sediment Urine Bacteria Urine Mucus Urine Opiates Screen (NEGATIVE) Ur Oxycodone Screen (NEGATIVE) Urine Methadone Screen (NEGATIVE) Ur Propoxyphene Screen (NEGATIVE) Ur Barbiturates Screen (NEGATIVE) Ur Tricyclics Screen (NEGATIVE) Ur Phencyclidine Scrn (NEGATIVE) Ur Amphetamine Screen (NEGATIVE) U Methamphetamines Scrn (NEGATIVE) Urine MDMA Screen (NEGATIVE) U Benzodiazepines Scrn (NEGATIVE) U Cocaine Metab Screen (NEGATIVE) U Marijuana (THC) Screen (NEGATIVE) Ethyl Alcohol < 3 mg/dL Meds: Medications Generic Name Dose Route Start Last Admin Trade Name Freq PRN Reason Stop Dose Admin Sodium Chloride 83 mls @ 3.5 mls/sec 01/09/18 05:00 01/09/18 05:21 Normal Saline IV 3.5 mls/sec ASDIRECTED FAISAL Administration Iopamidol 142 ml 01/09/18 04:48 01/09/18 05:22 Isovue-300 (61%) IV 01/10/18 04:49 142 ml . DIRECTED PRN Administration RADIOLOGY EXAM Sodium Chloride 10 ml 01/09/18 04:15 01/09/18 05:46 Saline Flush FLUSH 10 ml ASDIRECTED PRN Administration Keep Vein Open Discontinued Medications Generic Name Dose Route Start Last Admin Trade Name Freq PRN Reason Stop Dose Admin Diphenhydramine HCl 25 mg 01/09/18 04:15 01/09/18 04:24 Benadryl IVPUSH 01/09/18 04:16 25 mg ONETIME ONE Administration Fentanyl 50 mcg 01/09/18 04:15 01/09/18 04:24 Sublimaze IVPUSH 01/09/18 04:16 50 mcg ONETIME ONE Administration Fentanyl 50 mcg 01/09/18 05:35 01/09/18 05:45 Sublimaze IVPUSH 01/09/18 05:36 50 mcg ONETIME ONE Administration Ondansetron HCl 4 mg 01/09/18 04:15 01/09/18 04:26 Zofran IVPUSH 01/09/18 04:16 4 mg ONETIME ONE Administration Sodium Chloride 10 ml 01/09/18 04:48 01/09/18 05:47 Normal Saline FLUSH 01/09/18 04:49 Not Given ONETIME ONE Departure - Departure Time of Disposition: 06:19 Disposition: Home, Self-Care 01 Condition: Good Clinical Impression: Chest wall contusion Qualifiers: Encounter type: initial encounter Laterality: left Qualified Code(s): S20.212A - Contusion of left front wall of thorax, initial encounter Head injury Qualifiers: Encounter type: initial encounter Qualified Code(s): S09.90XA - Unspecified injury of head, initial encounter - Discharge Information Referrals: PCP,None [Primary Care Provider] - Forms: ED Department Discharge Additional Instructions: Use ibuprofen as needed for pain control, Please followup with your primary care provider in 3-5 days if not better, please call return to the emergency department with worsening of symptoms. - My Orders Last 24 Hours: My Active Orders 01/09/18 04:15 Cervical Spine wo Cont [CT] Stat Chest Abdomen Pelvis w Cont [CT] Stat Head wo Cont [CT] Stat DRUG SCREEN, URINE [URCHEM] Stat UA W/MICROSCOPIC [URIN] Stat Sodium Chloride 0.9% [Saline Flush] 10 ml FLUSH ASDIRECTED PRN Peripheral IV Insertion Adult [OM.PC] Urgent 01/09/18 04:16 Peripheral IV Care [RC] . DIRECTED 01/09/18 04:22 Hand Comp Min 3V Lt [CR] Stat 01/09/18 04:48 Iopamidol [Isovue-300 (61%)] 142 ml IV . DIRECTED PRN 01/09/18 05:00 Sodium Chloride 0.9% [Normal Saline] 83 ml IV ASDIRECTED - Assessment/Plan Last 24 Hours: My Active Orders 01/09/18 04:15 Cervical Spine wo Cont [CT] Stat Chest Abdomen Pelvis w Cont [CT] Stat Head wo Cont [CT] Stat DRUG SCREEN, URINE [URCHEM] Stat UA W/MICROSCOPIC [URIN] Stat Sodium Chloride 0.9% [Saline Flush] 10 ml FLUSH ASDIRECTED PRN Peripheral IV Insertion Adult [OM.PC] Urgent 01/09/18 04:16 Peripheral IV Care [RC] . DIRECTED 01/09/18 04:22 Hand Comp Min 3V Lt [CR] Stat 01/09/18 04:48 Iopamidol [Isovue-300 (61%)] 142 ml IV . DIRECTED PRN 01/09/18 05:00 Sodium Chloride 0.9% [Normal Saline] 83 ml IV ASDIRECTED Plan: Assessment Acuity = acute Site and laterality = chest contusion, head injury Etiology = secondary to a fall down the stairs Manifestations = none Location of injury = Home Lab values = CBC, CMP, urinalysis, urine drug screen, alcohol negative CT scan head C-spine chest abdomen and pelvis all unremarkable Plan Heme good relief from fentanyl provided in the ED discharged home use ibuprofen as needed for pain control follow-up primary care 3-5 days no improvement This note was dictated using dragon voice recognition software please call with any questions on syntax or grammar.
[2018-01-09] MEDS: Sodium Chloride 0.9% 10 ML Syringe FLUSH PRN ×3 (04:26→05:46)
[2018-01-09] MEDS ORDERED: Iopamidol 612 MG/ML 150 ML Bottle IV PRN (04:48)
[2018-01-09] MEDS ORDERED: Sodium Chloride 0.9% 10 ML SDV FLUSH ONE (04:48)
--- NOTE | 2018-01-11 09:41 | CR ---
Hand Comp Min 3V Lt INDICATION: Trauma, pain COMPARISON: 04/29/2017 FINDINGS: 3 views. Nothing acute. Postop change amputation fourth digit at the mid shaft of the m iddle phalanx.
== END 2018-01-09 06:33 | disposition home or self-care (01) ==
LOC: JP.ED 03:47
DX: S20.212A Contusion of left front wall of thorax, initial encounter (principal); S09.90XA Unspecified injury of head, initial encounter; I10 Essential (primary) hypertension; F32.9 Major depressive disorder, single episode, unspecified; F17.210 Nicotine dependence, cigarettes, uncomplicated; Z91.041 Radiographic dye allergy status; Z88.8 Allergy status to other drugs, medicaments and biological substances; Z79.899 Other long term (current) drug therapy; W10.9XXA Fall (on) (from) unspecified stairs and steps, initial encounter
CPT/HCPCS: 36415; 70450; 71260; 72125; 73130; 74177; 80053; 80305; 81001; 85025; 96374; 96375; 96376; 99285; G0480; J1200; J2405; J3010; J7030; J7050

== ENCOUNTER 2018-01-11 15:04 | Emergency (ER) | payer MEDICAID ==
--- NOTE | 2018-01-11 19:03 | EDM.PDOC ---
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 He called EMS himself when he came to he knows he have loss of consciousness as he does not remember all the fall. He was seen and evaluated emergency, examination did not show significant trauma grossly. He underwent CT head neck and chest/abdomen which did not show any significant findings He presented to the [place] [facility] for follow-up today was seen and evaluated and told to come back to emergency, it's unclear if a referral was made. He reports that his headache continues, he had vomiting 3 times yesterday and twice today, he continues to have blurry vision seeing spots of light and dark spots floating through his visual field. Feels like he has a baseball bat struck the back of his head on the right side of his neck and the right side of his scalp. He feels off balance has to walk slowly but is able to walk unassisted He feels some spinning sensation sometimes any definite feels lightheaded. Took ibuprofen last night and Tylenol this morning without relief. He is missing work currently. - Related Data Allergies Allergy/AdvReac Type Severity Reaction Status Date / Time meperidine [From Demerol] Allergy Hives Verified 01/11/18 17:30 iv contrast Allergy Severe Anaphylactic Uncoded 01/09/18 03:49 Shock Home Meds: Home Meds Cyanocobalamin (Vitamin B-12) [Vitamin B-12] 1,000 mcg PO DAILY 08/21/17 [ History] Gabapentin [Neurontin] 300 mg PO TID 08/21/17 [History] PARoxetine HCl [Paroxetine HCl] 40 mg PO DAILY 08/21/17 [History] Propranolol HCl 20 mg PO TID 08/21/17 [History] clonazePAM [Clonazepam] 1 mg PO TID PRN 08/21/17 [History] risperiDONE 2 mg PO BEDTIME 08/21/17 [History] Acetaminophen [Tylenol Arthritis Pain] 650 mg PO ASDIRECTED PRN 10/13/17 [ History] Pantoprazole Sodium 40 mg PO DAILY 10/13/17 [History] Dextroamphetamine/Amphetamine [Adderall 20 mg Tablet] 40 mg PO BID 12/20/17 [ History] Dicyclomine [Bentyl] 20 mg PO QIDACANDBED PRN #14 tab 12/21/17 [Rx] Cyclobenzaprine [Flexeril] 10 mg PO TID PRN #10 tab 01/11/18 [Rx] Past Medical History HEENT History: Reports: Impaired Vision Cardiovascular History: Reports: Arrhythmia, Hypertension Respiratory History: Reports: Pneumothorax Gastrointestinal History: Reports: Other (See Below) Other Gastrointestinal History: ulcers Genitourinary History: Reports: Renal Calculus, Other (See Below) Other Genitourinary History: right kidney reconstruction Musculoskeletal History: Reports: Other (See Below) Other Musculoskeletal History: crush injury left hand, boxer fracture right hand Neurological History: Reports: Concussion, Head Trauma, Migraines Psychiatric History: Reports: Anxiety, Depression, PTSD Other Psychiatric History: PTSD childhood trauma Dermatologic History: Reports: Other (See Below) Other Dermatologic History: tattoos - Infectious Disease History Infectious Disease History: Reports: Chicken Pox - Past Surgical History HEENT Surgical History: Reports: Oral Surgery GI Surgical History: Reports: Cholecystectomy Male Surgical History: Reports: Renal Calculus, Other (See Below) Other Male Surgeries/Procedures: stents Musculoskeletal Surgical History: Reports: Other (See Below) Other Musculoskeletal Surgeries/Procedures:: partial amputation l ring finger Social & Family History - Family History Family Medical History: Noncontributory GI: Reports: Other (See Below) - Tobacco Use Smoking Status *Q: Current Every Day Smoker Years of Tobacco use: 18 Packs/Tins Daily: 1 - Caffeine Use Caffeine Use: Reports: Coffee, Energy Drinks Other Caffeine Use: 16 oz coffee daily - Recreational Drug Use Recreational Drug Use: No - Living Situation & Occupation Living situation: Reports: with Family (Lives in [facility] with his Immediate family.) Occupation: Employed ED ROS GENERAL - Review of Systems Review Of Systems: See Below Constitutional: Reports: Malaise, Fatigue, Decreased Appetite. Denies: Fever HEENT: Reports: No Symptoms Respiratory: Reports: No Symptoms Cardiovascular: Reports: No Symptoms GI/Abdominal: Reports: Abdominal Pain (Left side, has had this previously), Decreased Appetite, Nausea, Vomiting. Denies: Diarrhea : Reports: Hematuria (Since this morning). Denies: Dysuria Musculoskeletal: Reports: Neck Pain Skin: Reports: Other (Healing wound of his leg) Neurological: Reports: Dizziness, Headache, Difficulty Walking, Gait Disturbance. Denies: Numbness, Seizure, Trouble Speaking, Change in Speech Psychiatric: Reports: Other (History of psychiatric illness) Hematologic/Lymphatic: Reports: No Symptoms Immunologic: Reports: No Symptoms ED EXAM, HEAD INJURY - Physical Exam Exam: See Below Exam Limited By: No Limitations General Appearance: Alert, Anxious, Mild Distress, Other (He appears tired but not in acute distress, no difficulty speaking or breathing, color normal, vital signs show mild elevation blood pressure) Head: Atraumatic, Other (Tenderness mild, right scalp). No: Scalp Swelling, Scalp Abrasions Nexus Criteria: No: Posterior, Midline Cervical Tenderness Eyes: Bilateral Eye: EOMI (He reports pain with lateral gaze), Normal Fundi, Normal Inspection, Other (No nystagmus) Ears: Normal External Exam, Normal Canal, Hearing Grossly Normal, Normal TMs Nose: Normal Inspection, Normal Mucousa Throat/Mouth: Normal Inspection, Normal Oropharynx, Other (Tender right TMJ) Neck: Normal Alignment, Normal Inspection, Painful Range of Motion, Tenderness ( Right side) Respiratory: No Respiratory Distress, Lungs Clear, No Accessory Muscle Use Cardiovascular: Normal Peripheral Pulses, Regular Rate, Rhythm GI/Abdominal Exam: Normal Bowel Sounds, Soft, No Distention, Tender ( Superficial left side) (Male) Exam: No Hernia Back Exam: Normal Inspection, Full Range of Motion Extremities: Normal Inspection, Non-Tender Neurologic: No Motor/Sensory Deficits, Alert Skin: Normal Color, Other (Pityriasis) - Abimael Coma Score Best Eye Response (Abimael): (4) Open Spontaneously Best Verbal Response (Abimael): (5) Oriented Best Motor Response (Abimael): (6) Obeys Commands Abimael Total: 15 Course - Vital Signs Last Recorded V/S: Last Vital Signs Temp 36.0 C 01/11/18 17:22 Pulse 69 01/11/18 17:22 Resp 16 01/11/18 17:22 BP 145/93 H 01/11/18 17:22 Pulse Ox 95 01/11/18 17:22 - Orders/Labs/Meds Orders: Active Orders 24 hr Category Date Time Status Head wo Cont [CT] Stat Exams 01/11/18 18:57 Taken CULTURE URINE [RM] Stat Lab 01/11/18 19:03 Ordered UA W/MICROSCOPIC [URIN] Stat Lab 01/11/18 19:03 Ordered Labs: Laboratory Tests 01/11/18 01/11/18 01/11/18 Range/Units 19:03 19:09 19:09 WBC 9.5 (4.5-11.0) K/uL RBC 5.11 (4.30-5.90) M/uL Hgb 15.4 H (12.0-15.0) g/dL Hct 45.0 (40.0-54.0) % MCV 88 (80-98) fL MCH 30 (27-31) pg MCHC 34 (32-36) % Plt Count 277 (150-400) K/uL Sodium 139 L (140-148) mmol/L Potassium 3.9 (3.6-5.2) mmol/L Chloride 104 (100-108) mmol/L Carbon Dioxide 26 (21-32) mmol/L Anion Gap 12.9 (5.0-14.0) mmol/L BUN 8 (7-18) mg/dL Creatinine 1.1 (0.8-1.3) mg/dL Est Cr Clr Drug Dosing 106.80 mL/min Estimated GFR (MDRD) > 60 (>60) Glucose 90 (74-106) mg/dL Calcium 9.0 (8.5-10.1) mg/dL Urine Color Yellow Urine Appearance Cloudy Urine pH 7.0 (4.5-8.0) Ur Specific [facility] 1.010 (1.008-1.030) Urine Protein Negative (NEGATIVE) mg/dL Urine Glucose (UA) Normal (NEGATIVE) mg/dL Urine Ketones Negative (NEGATIVE) mg/dL Urine Occult Blood Large (NEGATIVE) Urine Nitrite Negative (NEGAITVE) Urine Bilirubin Negative (NEGATIVE) Urine Urobilinogen Normal (NORMAL) mg/dL Ur Leukocyte Esterase Negative (NEGATIVE) Urine RBC >100 H (0-5) Urine WBC 0-5 (0-5) Ur Epithelial Cells Rare Amorphous Sediment Not seen Urine Bacteria Few Urine Mucus Not seen Meds: Medications Discontinued Medications Generic Name Dose Route Start Last Admin Trade Name Freq PRN Reason Stop Dose Admin Cyclobenzaprine HCl 10 mg 01/11/18 21:14 01/11/18 21:23 Flexeril PO 01/11/18 21:15 10 mg ONETIME ONE Administration Ondansetron HCl 4 mg 01/11/18 19:56 01/11/18 20:03 Zofran Odt PO 01/11/18 19:57 4 mg ONETIME ONE Administration Tramadol HCl 50 mg 01/11/18 19:56 01/11/18 20:03 Ultram PO 01/11/18 19:57 50 mg ONETIME ONE Administration - Re-Assessments/Exams Free Text/Narrative Re-Assessment/Exam: 01/11/18 19:04 32-year-old male 2 days post head injury, history of traumatic brain injury Complaining of visual disturbance with floaters and flash Complaining of pain right jaw Current marquez 8 sided neck and head pain Forgetfulne troubles concentrating nausea vomiting left flank pain It is possible that he has had a bleed or swelling in the head so CT scan of the head will be repeated He has no hematur, does have a history of kidney stones. However the CT scan from 2 days ago was negative for signs of contusion to the kidney or of stones. Visual changes require evaluation by ophthalmology, no fundal changes could be seen on evaluation tonight Tramadol 50 mg by mouth, ondansetron [address] scan head, ia ssn joshuaruby 01/12/18 03:28 CT scan head no changes CBC BMP no acute changes Symptoms consistent with concussive syndrome and neck sprain, Urine does show hematuria but no kidney damage was seen on x-ray Needs follow-up within 1 week to recheck his urine, reassesses his headache and concussion symptoms Of note the patient has been seen multiple times, reassurances important Cyclobenzaprine 10 mg by mouth Departure - Departure Time of Disposition: 21:14 Disposition: Home, Self-Care 01 Condition: Fair Clinical Impression: Post-concussion headache Acute neck sprain Qualifiers: Encounter type: subsequent encounter Qualified Code(s): S13.9XXD - Sprain of joints and ligaments of unspecified parts of neck, subsequent encounter - Discharge Information Prescriptions: Cyclobenzaprine [Flexeril] 10 mg PO TID PRN #10 tab PRN Reason: Neck pain spasm or headache Instructions: Post-Concussion Syndrome, [id number], Cervical Sprain Referrals: Teresa Holcomb PA [Primary Care Provider] - Forms: ED Department Discharge - My Orders Last 24 Hours: My Active Orders 01/11/18 18:57 Head wo Cont [CT] Stat 01/11/18 19:03 CULTURE URINE [RM] Stat UA W/MICROSCOPIC [URIN] Stat - Assessment/Plan Last 24 Hours: My Active Orders 01/11/18 18:57 Head wo Cont [CT] Stat 01/11/18 19:03 CULTURE URINE [RM] Stat UA W/MICROSCOPIC [URIN] Stat
[2018-01-11] MEDS ORDERED: traMADol 50 MG Tab PO ONE (19:56)
[2018-01-11] MEDS ORDERED: Ondansetron 4 MG Tab.DIS PO ONE (19:56)
[2018-01-11] MEDS ORDERED: Cyclobenzaprine 10 MG Tab PO ONE (21:14)
== END 2018-01-11 21:24 | disposition home or self-care (01) ==
LOC: JP.ED 15:04
DX: F07.81 Postconcussional syndrome (principal); S13.9XXD Sprain of joints and ligaments of unspecified parts of neck, subsequent encounter; F17.210 Nicotine dependence, cigarettes, uncomplicated; I10 Essential (primary) hypertension; F41.9 Anxiety disorder, unspecified; F32.9 Major depressive disorder, single episode, unspecified; Z79.899 Other long term (current) drug therapy; Z88.5 Allergy status to narcotic agent; Z91.041 Radiographic dye allergy status
CPT/HCPCS: 36415; 70450; 80048; 81001; 85027; 87086; 99285; A9270

== ENCOUNTER 2018-01-31 17:03 | Emergency (ER) | payer MEDICAID ==
--- NOTE | 2018-01-31 19:52 | EDM.PDOC ---
ED HPI GENERAL MEDICAL PROBLEM - General Chief Complaint: Neurological Problem Stated Complaint: HEADACHE/CONFUSED/DISORIENTED Time Seen by Provider: 01/31/18 18:09 Source of Information: Reports: Patient History Limitations: Reports: No Limitations - History of Present Illness INITIAL COMMENTS - FREE TEXT/NARRATIVE: He fell and hit head late last month. Head CT was normal. Subsequent MOON's. MRI suggested possible increased ICP. Pt said Eye exam was ok. Now complains of MOON's confused disoriented off balance, leg went out. Blurry vision. Sqays he can't see mor than about 10' in front. To see Neuro on January 19 Headache Pain Score (Numeric/FACES): 10 - Related Data Allergies Allergy/AdvReac Type Severity Reaction Status Date / Time meperidine [From Demerol] Allergy Hives Verified 01/11/18 17:30 iv contrast Allergy Severe Anaphylactic Uncoded 01/09/18 03:49 Shock Home Meds: Home Meds Cyanocobalamin (Vitamin B-12) [Vitamin B-12] 1,000 mcg PO DAILY 08/21/17 [ History] Gabapentin [Neurontin] 300 mg PO TID 08/21/17 [History] PARoxetine HCl [Paroxetine HCl] 40 mg PO DAILY 08/21/17 [History] Propranolol HCl 20 mg PO TID 08/21/17 [History] clonazePAM [Clonazepam] 1 mg PO TID PRN 08/21/17 [History] risperiDONE 2 mg PO BEDTIME 08/21/17 [History] Acetaminophen [Tylenol Arthritis Pain] 650 mg PO ASDIRECTED PRN 10/13/17 [ History] Pantoprazole Sodium 40 mg PO DAILY 10/13/17 [History] Dextroamphetamine/Amphetamine [Adderall 20 mg Tablet] 40 mg PO BID 12/20/17 [ History] Dicyclomine [Bentyl] 20 mg PO QIDACANDBED PRN #14 tab 12/21/17 [Rx] Cyclobenzaprine [Flexeril] 10 mg PO TID PRN #10 tab 01/11/18 [Rx] Past Medical History HEENT History: Reports: Impaired Vision Cardiovascular History: Reports: Arrhythmia, Hypertension Respiratory History: Reports: Pneumothorax Gastrointestinal History: Reports: Cholelithiasis, Other (See Below) Other Gastrointestinal History: ulcers Genitourinary History: Reports: Renal Calculus, Other (See Below) Other Genitourinary History: right kidney reconstruction Musculoskeletal History: Reports: Other (See Below) Other Musculoskeletal History: crush injury left hand, boxer fracture right hand Neurological History: Reports: Concussion, Head Trauma, Migraines Psychiatric History: Reports: Anxiety, Depression, PTSD Other Psychiatric History: PTSD childhood trauma Dermatologic History: Reports: Other (See Below) Other Dermatologic History: tattoos - Infectious Disease History Infectious Disease History: Reports: Chicken Pox - Past Surgical History HEENT Surgical History: Reports: Oral Surgery GI Surgical History: Reports: Cholecystectomy Male Surgical History: Reports: Renal Calculus, Other (See Below) Other Male Surgeries/Procedures: stents Musculoskeletal Surgical History: Reports: Other (See Below) Other Musculoskeletal Surgeries/Procedures:: partial amputation l ring finger Social & Family History - Family History Family Medical History: Noncontributory GI: Reports: Other (See Below) - Tobacco Use Smoking Status *Q: Current Every Day Smoker Years of Tobacco use: 18 Packs/Tins Daily: 1 - Caffeine Use Caffeine Use: Reports: Coffee, Energy Drinks Other Caffeine Use: 16 oz coffee daily - Recreational Drug Use Recreational Drug Use: No - Living Situation & Occupation Living situation: Reports: with Family ([facility]ives in [facility] with his Immediate family.) Occupation: Employed ED ROS GENERAL - Review of Systems Review Of Systems: ROS reveals no pertinent complaints other than HPI. ED EXAM, NEURO - Physical Exam Exam: See Below Exam Limited By: No Limitations General Appearance: Alert, WD/WN, No Apparent Distress Eye Exam: Bilateral Eye: EOMI, PERRL, Other (See note on visual beck) Throat/Mouth: Normal Inspection Head Exam: Atraumatic Neck: Normal Inspection Respiratory/Chest: Lungs Clear Cardiovascular: Regular Rate, Rhythm GI/Abdominal: Non-Tender Neurological: Alert, Normal Mood/Affect, Normal Dorsiflexion, CN II-XII Intact, Normal Plantar Flexion, Normal Gait (slow but steady.), Normal Reflexes, No Motor/Sensory Deficits, Other (neg Rhomberg test). No: Ataxia DTR: 2+: Bicep (R), Bicep (L), Patella (R), Patella (L), Achilles (R), Achilles (L) Extremities: Normal Inspection Psychiatric: Normal Affect Skin Exam: Warm, Dry Course - Vital Signs Last Recorded V/S: Last Vital Signs Temp 36.4 C 01/31/18 17:59 Pulse 89 01/31/18 17:59 Resp 16 01/31/18 17:59 BP 134/81 01/31/18 17:59 Pulse Ox 97 01/31/18 17:59 - Re-Assessments/Exams Free Text/Narrative Re-Assessment/Exam: 01/31/18 20:15 seems to have concentric visual field loss both eyes (tunnel vision) on my testing. Unable to do adequate slit lamp exam. Discusseed with Dr Jesse Martin... at [facility]. She thinks post concussive syndrome and no need for emergent consult other than what I already planned. Departure - Departure Time of Disposition: 19:49 Disposition: Home, Self-Care 01 Condition: Fair Clinical Impression: Papilledema associated with increased intracranial pressure - Discharge Information Instructions: Edema, [id number] Referrals: Teresa Holcomb PA [Primary Care Provider] - Forms: ED Department Discharge Additional Instructions: There may be increased pressure in the fluid around your brain. This possibility was suggested by the MRI. You should see an network cabler tomorrow to be checked for papilledema (swelling of the back of the eye around the optic nerve. This is serious) You should see your regular doctor after this exam ( also tomorrow) If you do have papilledema then you will need to see a neurologist DAIANA
== END 2018-01-31 20:22 | disposition home or self-care (01) ==
LOC: JP.ED 17:03
DX: H47.11 Papilledema associated with increased intracranial pressure (principal); I10 Essential (primary) hypertension; F41.9 Anxiety disorder, unspecified; F32.9 Major depressive disorder, single episode, unspecified; F17.210 Nicotine dependence, cigarettes, uncomplicated; Z88.5 Allergy status to narcotic agent
CPT/HCPCS: 99284

== ENCOUNTER 2018-09-30 11:50 | Emergency (ER) | payer MEDICAID ==
[2018-09-30] MEDS ORDERED: Sodium Chloride 0.9% 10 ML Syringe FLUSH PRN ×2 (12:44→12:52)
[2018-09-30] MEDS ORDERED: HYDROmorphone 1 MG/ML Syringe IVPUSH ONE (12:45)
[2018-09-30] MEDS ORDERED: Iopamidol 612 MG/ML 150 ML Bottle IV SCH (13:00)
[2018-09-30] MEDS ORDERED: diphenhydrAMINE 50 MG/ML SDV ONE ×2 (13:09)
[2018-09-30] MEDS ORDERED: diphenhydrAMINE 50 MG/ML SDV IVPUSH ONE (13:17)
--- NOTE | 2018-09-30 14:22 | CRLCT ---
INDICATION: Left lower quadrant pain, bloody stools TECHNIQUE: CT abdomen and pelvis with 150 cc Isovue-300 contrast. COMPARISON: December 20, 2017 FINDINGS: Lower chest: Unremarkable. Liver: Hepatic steatosis. Spleen: Unremarkable. Pancreas: Unremarkable. Gallbladder and bile ducts: S/p cholecystectomy. Adrenal glands: Unremarkable. Kidneys: Unremarkable. GI tract: Unremarkable. Appendix is normal. Vascular structures: Unremarkable. Lymph nodes: Unremarkable. Miscellaneous: Unremarkable. No free air or significant free fluid. Pelvic Organs: Unremarkable. Bones: Unremarkable for age. IMPRESSION: No acute intra-abdominal process identified. Hepatic steatosis. Status post cholecystectomy. Please note that all CT scans at this facility use dose modulation, iterative reconstruction, and/or weight-based dosing when appropriate to reduce radiation dose to as low as reasonably achievable. Dictated by Christina Browning MD @ Sep 30 2018 2:17PM Signed by Dr. Christina Browning @ Sep 30 2018 2:21PM
--- NOTE | 2018-09-30 14:59 | EDM.PDOC ---
ED HPI GENERAL MEDICAL PROBLEM - General Chief Complaint: Gastrointestinal Problem Stated Complaint: ABD PAIN, BLOOD IN STOOL Time Seen by Provider: 09/30/18 12:43 Source of Information: Reports: Patient History Limitations: Reports: No Limitations - History of Present Illness INITIAL COMMENTS - FREE TEXT/NARRATIVE: This patient complains of abdominal pain and bloody stools for about 2 weeks and this is getting worse. He then said he also had some watery diarrhea frequently area he said the stools have been black and then worse starting to turn red. No history of previous GI bleeding. No history of fever Abdominal Pain Score (Numeric/FACES): 10 - Related Data Allergies Allergy/AdvReac Type Severity Reaction Status Date / Time meperidine [From Demerol] Allergy Hives Verified 09/30/18 12:16 iv contrast Allergy Severe Anaphylactic Uncoded 09/30/18 12:16 Shock Home Meds: Home Meds Gabapentin [Neurontin] 300 mg PO TID 08/21/17 [History] Propranolol HCl 20 mg PO TID 08/21/17 [History] risperiDONE 2 mg PO BEDTIME 08/21/17 [History] Acetaminophen [Tylenol Arthritis Pain] 650 mg PO ASDIRECTED PRN 10/13/17 [ History] Dextroamphetamine/Amphetamine [Adderall 20 mg Tablet] 40 mg PO BID 12/20/17 [ History] DULoxetine [Cymbalta] 60 mg PO DAILY 09/30/18 [History] Zolpidem Tartrate [Ambien] 10 mg PO DAILY 09/30/18 [History] Past Medical History HEENT History: Reports: Impaired Vision Cardiovascular History: Reports: Arrhythmia, Hypertension Respiratory History: Reports: Pneumothorax Gastrointestinal History: Reports: Cholelithiasis, Other (See Below) Other Gastrointestinal History: ulcers Genitourinary History: Reports: Renal Calculus, Other (See Below) Other Genitourinary History: right kidney reconstruction Musculoskeletal History: Reports: Back Pain, Chronic, Other (See Below) Other Musculoskeletal History: crush injury left hand, boxer fracture right hand Neurological History: Reports: Concussion, Head Trauma, Migraines Psychiatric History: Reports: Anxiety, Depression, PTSD Other Psychiatric History: PTSD childhood trauma Dermatologic History: Reports: Other (See Below) Other Dermatologic History: tattoos - Infectious Disease History Infectious Disease History: Reports: Chicken Pox - Past Surgical History Head Surgeries/Procedures: Reports: None HEENT Surgical History: Reports: Oral Surgery Cardiovascular Surgical History: Reports: None Respiratory Surgical History: Reports: None GI Surgical History: Reports: Cholecystectomy, Colonoscopy Male Surgical History: Reports: Renal Calculus, Other (See Below) Other Male Surgeries/Procedures: stents Neurological Surgical History: Reports: None Musculoskeletal Surgical History: Reports: Other (See Below) Other Musculoskeletal Surgeries/Procedures:: partial amputation l ring finger Dermatological Surgical History: Reports: None Social & Family History - Family History Family Medical History: Noncontributory GI: Reports: Other (See Below) - Tobacco Use Smoking Status *Q: Current Every Day Smoker Years of Tobacco use: 20 Packs/Tins Daily: 0.5 Used Tobacco, but Quit: No Second Hand Smoke Exposure: No - Caffeine Use Caffeine Use: Reports: Coffee Other Caffeine Use: 16 oz coffee daily - Recreational Drug Use Recreational Drug Use: No - Living Situation & Occupation Living situation: Reports: with Family (Lives in [facility] with his Immediate family.) Occupation: Employed ED ROS GENERAL - Review of Systems Review Of Systems: ROS reveals no pertinent complaints other than HPI. ED EXAM, GI/ABD - Physical Exam Exam: See Below Exam Limited By: No Limitations General Appearance: Alert, WD/WN, Mild Distress Eyes: Bilateral: Normal Appearance Throat/Mouth: Normal Inspection Head: Atraumatic Neck: Normal Inspection Respiratory/Chest: Lungs Clear Cardiovascular: Regular Rate, Rhythm GI/Abdominal Exam: Normal Bowel Sounds, Soft, Tender (Fullness and tenderness mild to most of the left side of the abdomen) Rectal (Males) Exam: Normal Exam (No stool on digital rectal) Extremities: Normal Inspection Neurological: Alert, Oriented Skin Exam: Warm, Dry Course - Vital Signs Last Recorded V/S: Last Vital Signs Temp 35.7 C 09/30/18 12:10 Pulse 83 09/30/18 12:10 Resp 16 09/30/18 12:10 BP 144/94 H 09/30/18 12:10 Pulse Ox 98 09/30/18 12:10 - Orders/Labs/Meds Orders: Active Orders 24 hr Category Date Time Status Iopamidol [Isovue-300 (61%)] Med 09/30/18 13:00 Active 150 ml IV . DIRECTED Sodium Chloride 0.9% [Saline Flush] Med 09/30/18 12:44 Active 10 ml FLUSH ASDIRECTED PRN Sodium Chloride 0.9% [Saline Flush] Med 09/30/18 12:52 Active 10 ml FLUSH ONETIME PRN Saline Lock Insert [OM.PC] Urgent Oth 09/30/18 12:44 Ordered Medication Orders Iopamidol (Isovue-300 (61%)) 150 ml IV . DIRECTED FAISAL Last Admin: 09/30/18 13:52 Dose: 150 ml Sodium Chloride (Saline Flush) 10 ml FLUSH ASDIRECTED PRN PRN Reason: Keep Vein Open Last Admin: 09/30/18 13:02 Dose: 10 ml Sodium Chloride (Saline Flush) 10 ml FLUSH ONETIME PRN PRN Reason: PER RADIOLOGY PROTOCOL Last Admin: 09/30/18 13:52 Dose: 10 ml Labs: Laboratory Tests 09/30/18 09/30/18 09/30/18 Range/Units 12:53 12:53 12:53 WBC 7.5 (4.5-11.0) K/uL RBC 5.03 (4.30-5.90) M/uL Hgb 15.0 (12.0-15.0) g/dL Hct 45.6 (40.0-54.0) % MCV 91 (80-98) fL MCH 30 (27-31) pg MCHC 33 (32-36) % Plt Count 247 (150-400) K/uL Neut % (Auto) 60 (36-66) % Lymph % (Auto) 28 (24-44) % [place] % (Auto) 8 H (2-6) % Eos % (Auto) 3 (2-4) % Baso % (Auto) 1 (0-1) % PT 10.0 (9.5-12.0) sec INR 0.90 (0.80-1.20) APTT 28.5 (27.0-36.0) sec Sodium 137 L (140-148) mmol/L Potassium 4.2 (3.6-5.2) mmol/L Chloride 101 (100-108) mmol/L Carbon Dioxide 24 (21-32) mmol/L Anion Gap 16.2 H (5.0-14.0) mmol/L BUN 16 D (7-18) mg/dL Creatinine 1.0 (0.8-1.3) mg/dL Est Cr Clr Drug Dosing 116.40 mL/min Estimated GFR (MDRD) > 60 (>60) Glucose 103 (74-106) mg/dL Calcium 9.4 (8.5-10.1) mg/dL Total Bilirubin 0.3 (0.2-1.0) mg/dL AST 33 (15-37) U/L ALT 92 H (12-78) U/L Alkaline Phosphatase 107 (46-116) U/L Total Protein 7.5 (6.4-8.2) g/dL Albumin 3.9 (3.4-5.0) g/dL Globulin 3.6 H (2.3-3.5) g/dL Albumin/Globulin Ratio 1.1 L (1.2-2.2) Meds: Medications Generic Name Dose Route Start Last Admin Trade Name Freq PRN Reason Stop Dose Admin Iopamidol 150 ml 09/30/18 13:00 09/30/18 13:52 Isovue-300 (61%) IV 150 ml . DIRECTED FAISAL Administration Sodium Chloride 10 ml 09/30/18 12:44 09/30/18 13:02 Saline Flush FLUSH 10 ml ASDIRECTED PRN Administration Keep Vein Open Sodium Chloride 10 ml 09/30/18 12:52 09/30/18 13:52 Saline Flush FLUSH 10 ml ONETIME PRN Administration PER RADIOLOGY PROTOCOL Discontinued Medications Generic Name Dose Route Start Last Admin Trade Name Freq PRN Reason Stop Dose Admin Diphenhydramine HCl Confirm 09/30/18 13:09 Benadryl Administered 09/30/18 13:10 Dose 50 mg .ROUTE .STK-MED ONE Diphenhydramine HCl Confirm 09/30/18 13:09 Benadryl Administered 09/30/18 13:10 Dose 50 mg .ROUTE .STK-MED ONE Diphenhydramine HCl 50 mg 09/30/18 13:17 09/30/18 13:23 Benadryl IVPUSH 09/30/18 13:18 50 mg ONETIME ONE Administration Hydromorphone HCl 1 mg 09/30/18 12:45 09/30/18 13:16 Dilaudid IVPUSH 09/30/18 12:46 1 mg ONETIME ONE Administration Sodium Chloride 83 mls @ 3 mls/sec 09/30/18 12:52 09/30/18 13:52 Normal Saline IV 09/30/18 12:53 3 mls/sec ONETIME ONE Administration - Radiology Interpretation Free Text/Narrative:: Abdominal CT showed no acute abnormalities reviewed by me also Departure - Departure Time of Disposition: 14:56 Disposition: Home, Self-Care 01 Condition: Fair Clinical Impression: Abdominal pain, Rectal bleeding - Discharge Information Referrals: Teresa Holcomb PA [Primary Care Provider] - Additional Instructions: Return the stool sample to the lab in the cup soon. That is to check for an infection with something called clostridium difficile. Get 2 stool samples from separate bowel movements and placed him on the green cards. Put those in a bag and bring those to the lab. Plan to see your Dr. in the near future within the next few days. Your doctor will decide whether or not you need to be scoped. For diarrhea and cramping you may use the Lomotil one or 2 tablets 4 times per day. This medication can cause sedation and impair driving. If you don't want to use this you may use some [id number] Imodium AD - My Orders Last 24 Hours: My Active Orders 09/30/18 12:44 Sodium Chloride 0.9% [Saline Flush] 10 ml FLUSH ASDIRECTED PRN Saline Lock Insert [OM.PC] Urgent 09/30/18 12:52 Sodium Chloride 0.9% [Saline Flush] 10 ml FLUSH ONETIME PRN 09/30/18 13:00 Iopamidol [Isovue-300 (61%)] 150 ml IV . DIRECTED - Assessment/Plan Last 24 Hours: My Active Orders 09/30/18 12:44 Sodium Chloride 0.9% [Saline Flush] 10 ml FLUSH ASDIRECTED PRN Saline Lock Insert [OM.PC] Urgent 09/30/18 12:52 Sodium Chloride 0.9% [Saline Flush] 10 ml FLUSH ONETIME PRN 09/30/18 13:00 Iopamidol [Isovue-300 (61%)] 150 ml IV . DIRECTED
== END 2018-09-30 15:08 | disposition home or self-care (01) ==
LOC: JP.ED 11:50
DX: K62.5 Hemorrhage of anus and rectum (principal)
CPT/HCPCS: 36415; 74177; 80053; 85025; 85610; 85730; 96374; 96375; 99284; J1170; J1200; J7030

== ENCOUNTER 2018-10-11 07:12 | Day surgery (SDC) | payer MEDICAID ==
[2018-10-11] MEDS ORDERED: Dextrose 5%-Lactated Ringers 1,000 ML IV SCH (08:00)
[2018-10-11] MEDS ORDERED: Midazolam 1 MG/ML 2 ML SDV ONE (08:08)
[2018-10-11] MEDS ORDERED: Propofol 200 MG/20 ML SDV ONE (08:08)
[2018-10-11] MEDS ORDERED: fentaNYL 100 MCG/2 ML SDV ONE (08:08)
[2018-10-11] MEDS ORDERED: Glycopyrrolate 0.2 MG/ML 2 ML SDV IVPUSH ONE (08:45)
--- NOTE | 2018-10-14 13:23 | OR ---
DATE OF PROCEDURE: 10/11/2018 PREOPERATIVE DIAGNOSIS: Complains of mid abdominal discomfort, diarrhea, and intermittent rectal bleeding. POSTOPERATIVE DIAGNOSES: 1. Mild antral gastritis and proximal duodenitis. 2. Grossly normal colon examination other than for excoriated hemorrhoids. PROCEDURES PERFORMED: 1. Esophagogastroduodenoscopy with antral biopsies for CLOtest. 2. Flexible colonoscopy with random colorectal biopsies to rule out microscopic colitis ([id number]). ANESTHESIA: IV sedation. INDICATION FOR PROCEDURE: The patient presents with the above symptoms and history. He does have history of peptic ulcer disease in the past and is also status post previous cholecystectomy. He is presently not on any antisecretory medication. The plan is to proceed with upper and lower endoscopy with biopsies as indicated. Potential risks including bleeding and perforation were discussed, and the patient wishes to proceed. DETAILS OF PROCEDURE: The patient was taken to the operating room and placed in a left lateral decubitus position. IV sedation was administered, after which the upper GI endoscope was passed orally through the length of the esophagus and into the stomach with retroflexion view of the fundus and thereafter through the pyloric channel and into the proximal duodenum. FINDINGS: Included a normal hypopharynx, larynx, upper esophageal sphincter, and esophageal body. At the EG junction, there was no significant inflammation or hiatal hernia present. Within the stomach, there was some patchy redness in the antrum, but otherwise no ulcers or erosions, and the pyloric channel and the duodenum to the third and fourth portions were unremarkable. Biopsies were obtained from the antrum and sent for CLOtest for H. pylori. Minimal bleeding from the biopsy site was seen and the procedure was then concluded. Attention was taken to the colonoscopy. Initial digital rectal exam was performed and was unremarkable. The colonoscope was then passed into the rectum. Retroflexion revealed some mild to moderately excoriated hemorrhoids likely accounting for the patient's bleeding. Scope was eventually passed to the cecum. The prep was quite good, only there was a small amount of liquid stool present, and no additional pathology was seen within the colon or rectum, specifically there are no areas of colitis. No diverticular disease and no polyps or other signs of neoplasia. Given the patient's symptom complex, multiple colorectal biopsies were obtained randomly through the length of the colon and rectum to rule out microscopic colitis. Minimal bleeding from the biopsy sites was seen, and the procedure had been concluded. The patient will be started on Protonix 40 mg a day and will be following up with Teresa Holcomb in [facility] in 10 days. Solomon Carrera MD /[id number]
== END 2018-10-11 10:50 | disposition home or self-care (01) ==
LOC: JP.SDS 07:12
PROVIDERS: ATTEND Surgery
DX: K29.70 Gastritis, unspecified, without bleeding (principal); K29.80 Duodenitis without bleeding; K64.8 Other hemorrhoids; K62.5 Hemorrhage of anus and rectum; R19.7 Diarrhea, unspecified
CPT/HCPCS: 43239; 45380; 87081; J2250; J2704; J3010; J3490; J7042; 88305

== ENCOUNTER 2018-12-27 19:21 | Emergency (ER) | payer MEDICAID ==
[2018-12-27] MEDS ORDERED: Ketorolac 30 MG/ML SDV IM ONE (19:45)
--- NOTE | 2018-12-27 19:47 | EDM.PDOC ---
ED HPI GENERAL MEDICAL PROBLEM - General Chief Complaint: Flank Pain Stated Complaint: DIZZY AND PAIN IN BACK Time Seen by Provider: 12/27/18 19:42 Source of Information: Reports: Patient, Old Records, RN Notes Reviewed History Limitations: Reports: No Limitations - History of Present Illness INITIAL COMMENTS - FREE TEXT/NARRATIVE: 33-year-old gentleman presents emergency department today complaint of right flank pain, this does have a history of kidney stones it feels similar stones had the past the pain has been going on for a week as per family on the right flank has not migrated down to his groin. No nausea vomiting no shortness of breath or chest pain Bilateral Flank Pain Score (Numeric/FACES): 8 - Related Data Allergies Allergy/AdvReac Type Severity Reaction Status Date / Time meperidine [From Demerol] Allergy Hives Verified 09/30/18 12:16 iv contrast Allergy Severe Anaphylactic Uncoded 09/30/18 12:16 Shock Home Meds: Home Meds Gabapentin [Neurontin] 300 mg PO TID 08/21/17 [History] Propranolol HCl 20 mg PO TID 08/21/17 [History] risperiDONE 2 mg PO BEDTIME 08/21/17 [History] Acetaminophen [Tylenol Arthritis Pain] 650 mg PO ASDIRECTED PRN 10/13/17 [ History] Dextroamphetamine/Amphetamine [Adderall 20 mg Tablet] 40 mg PO BID 12/20/17 [ History] Zolpidem Tartrate [Ambien] 10 mg PO DAILY 09/30/18 [History] Amitriptyline HCl 75 mg PO BEDTIME 10/07/18 [History] Past Medical History HEENT History: Reports: Impaired Vision Other HEENT History: wears glasses Cardiovascular History: Reports: Arrhythmia, Hypertension, Other (See Below) Other Cardiovascular History: inverted T waves Respiratory History: Reports: Pneumothorax Gastrointestinal History: Reports: Cholelithiasis, Chronic Diarrhea, GI Bleed, Other (See Below) Other Gastrointestinal History: ulcers Genitourinary History: Reports: Renal Calculus, Other (See Below) Other Genitourinary History: right kidney reconstruction Musculoskeletal History: Reports: Back Pain, Chronic, Neck Pain, Chronic, Other (See Below) Other Musculoskeletal History: crush injury left hand, boxer fracture right hand Neurological History: Reports: Brain Injury, Concussion, Head Trauma, Migraines Psychiatric History: Reports: Anxiety, Depression, Psych Hospitalization(s), PTSD, Suicide Attempt, Suicidal Ideation Other Psychiatric History: PTSD childhood trauma Dermatologic History: Reports: Other (See Below) Other Dermatologic History: tattoos - Infectious Disease History Infectious Disease History: Reports: Chicken Pox - Past Surgical History Head Surgeries/Procedures: Reports: None HEENT Surgical History: Reports: Oral Surgery Cardiovascular Surgical History: Reports: None Respiratory Surgical History: Reports: None GI Surgical History: Reports: Cholecystectomy, Colonoscopy, EGD Male Surgical History: Reports: Kidney Stone Extraction, Renal Calculus, Other (See Below) Other Male Surgeries/Procedures: stents Neurological Surgical History: Reports: None Musculoskeletal Surgical History: Reports: Other (See Below) Other Musculoskeletal Surgeries/Procedures:: partial amputation l ring finger Dermatological Surgical History: Reports: None Social & Family History - Family History Family Medical History: Noncontributory GI: Reports: Other (See Below) - Tobacco Use Smoking Status *Q: Current Every Day Smoker Years of Tobacco use: 23 Packs/Tins Daily: 0.5 - Caffeine Use Caffeine Use: Reports: Coffee, Soda Other Caffeine Use: 16 oz coffee daily - Recreational Drug Use Recreational Drug Use: No - Living Situation & Occupation Living situation: Reports: with Family (Lives in [facility] with his Immediate family.) Occupation: Employed ED ROS GENERAL - Review of Systems Review Of Systems: See Below Constitutional: Denies: Fever, Chills HEENT: Reports: No Symptoms Respiratory: Reports: No Symptoms Cardiovascular: Reports: No Symptoms GI/Abdominal: Reports: Abdominal Pain. Denies: Nausea, Vomiting : Reports: Flank Pain. Denies: Hematuria Musculoskeletal: Reports: No Symptoms Skin: Reports: No Symptoms ED EXAM, GI/ABD - Physical Exam Exam: See Below Exam Limited By: No Limitations General Appearance: Alert, WD/WN, No Apparent Distress Respiratory/Chest: No Respiratory Distress GI/Abdominal Exam: Soft, Non-Tender, No Organomegaly, No Distention, No Mass, Other (Surgical scar over the right flank well-healed no tenderness) Course - Vital Signs Last Recorded V/S: Last Vital Signs Temp 95.7 F 12/27/18 19:36 Pulse 97 12/27/18 21:47 Resp 18 12/27/18 19:36 BP 151/97 H 12/27/18 21:47 Pulse Ox 98 12/27/18 21:47 - Orders/Labs/Meds Labs: Laboratory Tests 12/27/18 12/27/18 12/27/18 Range/Units 20:40 20:52 20:52 WBC 10.2 (4.5-11.0) K/uL RBC 4.92 (4.30-5.90) M/uL Hgb 14.9 (12.0-15.0) g/dL Hct 43.9 (40.0-54.0) % MCV 89 (80-98) fL MCH 30 (27-31) pg MCHC 34 (32-36) % Plt Count 276 (150-400) K/uL Sodium 139 L (140-148) mmol/L Potassium 4.0 (3.6-5.2) mmol/L Chloride 101 (100-108) mmol/L Carbon Dioxide 25 (21-32) mmol/L Anion Gap 17.0 H (5.0-14.0) mmol/L BUN 15 (7-18) mg/dL Creatinine 0.8 (0.8-1.3) mg/dL Est Cr Clr Drug Dosing 149.81 mL/min Estimated GFR (MDRD) > 60 (>60) Glucose 101 (74-106) mg/dL Lactic Acid (0.4-2.0) mmol/L Calcium 9.8 (8.5-10.1) mg/dL Total Bilirubin 0.4 (0.2-1.0) mg/dL AST 41 H (15-37) U/L ALT 92 H (12-78) U/L Alkaline Phosphatase 99 (46-116) U/L Total Protein 7.8 (6.4-8.2) g/dL Albumin 4.0 (3.4-5.0) g/dL Globulin 3.8 H (2.3-3.5) g/dL Albumin/Globulin Ratio 1.1 L (1.2-2.2) Urine Color Yellow Urine Appearance Slightly cloudy Urine pH 5.0 (4.5-8.0) Ur Specific [place] 1.020 (1.008-1.030) Urine Protein 30 H (NEGATIVE) mg/dL Urine Glucose (UA) Normal (NEGATIVE) mg/dL Urine Ketones 15 H (NEGATIVE) mg/dL Urine Occult Blood Negative (NEGATIVE) Urine Nitrite Negative (NEGAITVE) Urine Bilirubin Negative (NEGATIVE) Urine Urobilinogen Normal (NORMAL) mg/dL Ur Leukocyte Esterase Negative (NEGATIVE) Urine RBC 0-5 (0-5) Urine WBC Not seen (0-5) Ur Epithelial Cells Not seen Amorphous Sediment Many Urine Bacteria Not seen Urine Mucus Few Urine Other 12/27/18 Range/Units 20:52 WBC (4.5-11.0) K/uL RBC (4.30-5.90) M/uL Hgb (12.0-15.0) g/dL Hct (40.0-54.0) % MCV (80-98) fL MCH (27-31) pg MCHC (32-36) % Plt Count (150-400) K/uL Sodium (140-148) mmol/L Potassium (3.6-5.2) mmol/L Chloride (100-108) mmol/L Carbon Dioxide (21-32) mmol/L Anion Gap (5.0-14.0) mmol/L BUN (7-18) mg/dL Creatinine (0.8-1.3) mg/dL Est Cr Clr Drug Dosing mL/min Estimated GFR (MDRD) (>60) Glucose (74-106) mg/dL Lactic Acid 1.0 (0.4-2.0) mmol/L Calcium (8.5-10.1) mg/dL Total Bilirubin (0.2-1.0) mg/dL AST (15-37) U/L ALT (12-78) U/L Alkaline Phosphatase (46-116) U/L Total Protein (6.4-8.2) g/dL Albumin (3.4-5.0) g/dL Globulin (2.3-3.5) g/dL Albumin/Globulin Ratio (1.2-2.2) Urine Color Urine Appearance Urine pH (4.5-8.0) Ur Specific [place] (1.008-1.030) Urine Protein (NEGATIVE) mg/dL Urine Glucose (UA) (NEGATIVE) mg/dL Urine Ketones (NEGATIVE) mg/dL Urine Occult Blood (NEGATIVE) Urine Nitrite (NEGAITVE) Urine Bilirubin (NEGATIVE) Urine Urobilinogen (NORMAL) mg/dL Ur Leukocyte Esterase (NEGATIVE) Urine RBC (0-5) Urine WBC (0-5) Ur Epithelial Cells Amorphous Sediment Urine Bacteria Urine Mucus Urine Other Meds: Medications Discontinued Medications Generic Name Dose Route Start Last Admin Trade Name Rehan PRN Reason Stop Dose Admin Hydromorphone HCl 1 mg 12/27/18 20:28 12/27/18 20:33 Dilaudid IM 12/27/18 20:29 1 mg ONETIME ONE Administration Hydromorphone HCl 1 mg 12/27/18 22:24 Dilaudid IM 12/27/18 22:25 ONETIME ONE Ketorolac Tromethamine 30 mg 12/27/18 19:45 12/27/18 19:52 Toradol IM 12/27/18 19:46 30 mg ONETIME ONE Administration Departure - Departure Time of Disposition: 22:27 Disposition: Home, Self-Care 01 Condition: Fair Clinical Impression: Abdominal pain - Discharge Information Instructions: Abdominal Pain, Adult, [id number] Referrals: PCP,None [Primary Care Provider] - Forms: ED Department Discharge Additional Instructions: Please follow-up with your primary care provider in the next 3-5 days for further evaluation, call or return to the emergency department worsening of symptoms. - Assessment/Plan Plan: Assessment Acuity = acute Site and laterality = right flank pain Etiology = unclear etiology Manifestations = none Location of injury = Home Lab values = CBC unremarkable AST elevated 41 AST elevated 92 consistent elevated liver enzymes unclear significance, urinalysis unremarkable, CT scan of the abdomen does show small punctate stones bilaterally nothing obstructing Plan I did review lab work CT scan results with him he received some relief from the hydromorphone provided in the emergency department he'll follow up with his primary care provider this week for further evaluation 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
[2018-12-27] MEDS ORDERED: HYDROmorphone 1 MG/ML Syringe IM ONE ×2 (20:28→22:24)
--- NOTE | 2018-12-27 20:36 | CRLCT ---
INDICATION: Right flank pain TECHNIQUE: CT Abdomen and pelvis without i.v. contrast. Coronal and sagittal reformats were obtained. COMPARISON: 09/30/2018 FINDINGS: Lower chest: Unremarkable. Liver: Unremarkable. Spleen: Unremarkable. Pancreas: Unremarkable. Gallbladder: Previous cholecystectomy noted without significant intra- or extrahepatic biliary ductal dilatation seen. Kidney: Bilateral punctate nonobstructing intrarenal stones present. Both ureters are unremarkable appearance with no ureteral calculi or obstruction seen. Adrenal: Unremarkable. Bowel: Unremarkable. The appendix is normal in appearance and size. Vascular: Unremarkable. Lymph: Unremarkable. Peritoneum: Unremarkable. No pneumoperitoneum is seen. No significant ascites is noted. Pelvis: Unremarkable. Soft tissue: Unremarkable. Bone: Unremarkable for age. IMPRESSION: 1. Bilateral punctate nonobstructing intrarenal stones present. Dictated by Khanh Borges MD @ 12/27/2018 8:34:19 PM Please note that all CT scans at this facility use dose modulation, iterative reconstruction, and/or weight-based dosing when appropriate to reduce radiation dose to as low as reasonably achievable. Dictated by: Khanh Borges MD @ 12/27/2018 20:34:26 (Electronically Signed)
== END 2018-12-27 22:37 | disposition home or self-care (01) ==
LOC: JP.ED 19:21
DX: R10.9 Unspecified abdominal pain (principal); I10 Essential (primary) hypertension; F41.9 Anxiety disorder, unspecified; F32.9 Major depressive disorder, single episode, unspecified; Z79.899 Other long term (current) drug therapy; Z91.041 Radiographic dye allergy status; Z88.5 Allergy status to narcotic agent
CPT/HCPCS: 36415; 74176; 80053; 81001; 83605; 85027; 96372; 99284; J1170; J1885

== ENCOUNTER 2019-01-02 17:39 | Emergency (ER) | payer MEDICAID ==
[2019-01-02] MEDS ORDERED: Ondansetron 4 MG/2 ML SDV IVPUSH ONE (18:17)
[2019-01-02] MEDS ORDERED: HYDROmorphone 1 MG/ML Syringe IVPUSH ONE ×2 (18:18→19:32)
--- NOTE | 2019-01-02 18:21 | EDM.PDOC ---
ED HPI GENERAL MEDICAL PROBLEM - General Chief Complaint: Abdominal Pain Stated Complaint: BACK AND ABD PAIN NOT AN ACCIDENT Time Seen by Provider: 01/02/19 18:18 Source of Information: Reports: Patient History Limitations: Reports: No Limitations - History of Present Illness INITIAL COMMENTS - FREE TEXT/NARRATIVE: pt arrived with very severe left sided abdomanal pain. It starts in his back andcomes around. He is nauseated and is having very severe abdomanal pain rating it at a 10. He does have known stones in his kidneys. he has passed stones in the past but this does feel different to him. He has a low grade temp. Onset: Other ( This has been the worst today. ) Duration: Hour(s): Location: Reports: Abdomen Associated Symptoms: Reports: Fever/Chills, Nausea/Vomiting, Other (pain starts in his back. ) Left Abdomen Pain Score (Numeric/FACES): 8 - Related Data Allergies Allergy/AdvReac Type Severity Reaction Status Date / Time meperidine [From Demerol] Allergy Hives Verified 01/02/19 17:55 iv contrast Allergy Severe Anaphylactic Uncoded 01/02/19 17:55 Shock Home Meds: Home Meds Gabapentin [Neurontin] 300 mg PO TID 08/21/17 [History] Propranolol HCl 20 mg PO TID 08/21/17 [History] risperiDONE 2 mg PO BEDTIME 08/21/17 [History] Acetaminophen [Tylenol Arthritis Pain] 650 mg PO ASDIRECTED PRN 10/13/17 [ History] Dextroamphetamine/Amphetamine [Adderall 20 mg Tablet] 40 mg PO BID 12/20/17 [ History] Zolpidem Tartrate [Ambien] 10 mg PO DAILY 09/30/18 [History] Amitriptyline HCl 75 mg PO BEDTIME 10/07/18 [History] DULoxetine HCl [Duloxetine HCl] 60 mg PO DAILY 01/02/19 [History] Past Medical History HEENT History: Reports: Impaired Vision Other HEENT History: wears glasses Cardiovascular History: Reports: Arrhythmia, Hypertension, Other (See Below) Other Cardiovascular History: inverted T waves Respiratory History: Reports: Pneumothorax Gastrointestinal History: Reports: Cholelithiasis, Chronic Diarrhea, GI Bleed, Other (See Below) Other Gastrointestinal History: ulcers Genitourinary History: Reports: Renal Calculus, Other (See Below) Other Genitourinary History: right kidney reconstruction Musculoskeletal History: Reports: Back Pain, Chronic, Neck Pain, Chronic, Other (See Below) Other Musculoskeletal History: crush injury left hand, boxer fracture right hand Neurological History: Reports: Brain Injury, Concussion, Head Trauma, Migraines Psychiatric History: Reports: Anxiety, Depression, Psych Hospitalization(s), PTSD, Suicide Attempt, Suicidal Ideation Other Psychiatric History: PTSD childhood trauma Dermatologic History: Reports: Other (See Below) Other Dermatologic History: tattoos - Infectious Disease History Infectious Disease History: Reports: Chicken Pox - Past Surgical History Head Surgeries/Procedures: Reports: None HEENT Surgical History: Reports: Oral Surgery Cardiovascular Surgical History: Reports: None Respiratory Surgical History: Reports: None GI Surgical History: Reports: Cholecystectomy, Colonoscopy, EGD Male Surgical History: Reports: Kidney Stone Extraction, Renal Calculus, Other (See Below) Other Male Surgeries/Procedures: stents Neurological Surgical History: Reports: None Musculoskeletal Surgical History: Reports: Other (See Below) Other Musculoskeletal Surgeries/Procedures:: partial amputation l ring finger Dermatological Surgical History: Reports: None Social & Family History - Family History Family Medical History: Noncontributory GI: Reports: Other (See Below) - Tobacco Use Smoking Status *Q: Current Every Day Smoker Years of Tobacco use: 23 Packs/Tins Daily: 0.4 - Caffeine Use Caffeine Use: Reports: None Other Caffeine Use: 16 oz coffee daily - Recreational Drug Use Recreational Drug Use: No - Living Situation & Occupation Living situation: Reports: with Family (Lives in [facility] with his Immediate family.) Occupation: Employed ED ROS GENERAL - Review of Systems Review Of Systems: See Below Constitutional: Reports: Decreased Appetite HEENT: Reports: No Symptoms Respiratory: Reports: No Symptoms Cardiovascular: Reports: No Symptoms Endocrine: Reports: No Symptoms GI/Abdominal: Reports: Abdominal Pain, Nausea, Other (pt has pain which comes from the back to the front on the left side. Pt had a normal fairly firm bm today. He has been having diarrhea ahead of this. ) : Reports: No Symptoms Musculoskeletal: Reports: No Symptoms Skin: Reports: No Symptoms Neurological: Reports: No Symptoms Psychiatric: Reports: Agitation ED EXAM, GI/ABD - Physical Exam Exam: See Below Text/Narrative:: pt arrived with painin the left abdoman moving to the front. He has not been vomiting but he is nauseated. He has not noted blood in the urine. He had a cat scan of the abdoman which showed multiple small stones in the kidneys bilateral. He had a colonoscopy about 3 monthes ago and biopsies of the colon was obtained which were neg. Exam Limited By: No Limitations General Appearance: Alert, Anxious, Moderate Distress Ears: Normal TMs Nose: Normal Inspection Throat/Mouth: Normal Inspection Head: Atraumatic Neck: Normal Inspection Respiratory/Chest: No Respiratory Distress Cardiovascular: Regular Rate, Rhythm GI/Abdominal Exam: Other (pt is tender in the left abdomanal area. ) (Male) Exam: Deferred Rectal (Males) Exam: Deferred Back Exam: Normal Inspection Extremities: Normal Inspection Neurological: Alert, Oriented, Normal Cognition Psychiatric: Anxious Course - Vital Signs Last Recorded V/S: Last Vital Signs Temp 36.7 C 01/02/19 21:43 Pulse 89 01/02/19 21:43 Resp 16 01/02/19 21:43 BP 144/76 H 01/02/19 21:43 Pulse Ox 96 01/02/19 21:43 - Orders/Labs/Meds Orders: Active Orders 24 hr Category Date Time Status Sodium Chloride 0.9% [Normal Saline] 1,000 ml Med 01/02/19 18:30 Active IV ASDIRECTED Sodium Chloride 0.9% [Normal Saline] 1,000 ml Med 01/02/19 20:00 Active IV ASDIRECTED Medication Orders Sodium Chloride (Normal Saline) 1,000 mls @ 999 mls/hr IV ASDIRECTED FAISAL Last Admin: 01/02/19 18:36 Dose: 999 mls/hr Sodium Chloride (Normal Saline) 1,000 mls @ 999 mls/hr IV ASDIRECTED FAISAL Last Admin: 01/02/19 19:55 Dose: 999 mls/hr Labs: Laboratory Tests 01/02/19 01/02/19 01/02/19 Range/Units 18:37 18:37 18:37 WBC 11.4 H (4.5-11.0) K/uL RBC 5.04 (4.30-5.90) M/uL Hgb 15.4 H (12.0-15.0) g/dL Hct 45.1 (40.0-54.0) % MCV 90 (80-98) fL MCH 31 (27-31) pg MCHC 34 (32-36) % Plt Count 316 (150-400) K/uL Neut % (Auto) 64 (36-66) % Lymph % (Auto) 25 (24-44) % [place] % (Auto) 9 H (2-6) % Eos % (Auto) 1 L (2-4) % Baso % (Auto) 0 (0-1) % Sodium 140 (140-148) mmol/L Potassium 3.7 (3.6-5.2) mmol/L Chloride 103 (100-108) mmol/L Carbon Dioxide 22 (21-32) mmol/L Anion Gap 14.9 H (5.0-14.0) mmol/L BUN 10 (7-18) mg/dL Creatinine 1.0 (0.8-1.3) mg/dL Est Cr Clr Drug Dosing 119.85 mL/min Estimated GFR (MDRD) > 60 (>60) Glucose 92 (74-106) mg/dL Calcium 9.5 (8.5-10.1) mg/dL Total Bilirubin 0.6 (0.2-1.0) mg/dL AST 49 H (15-37) U/L ALT 185 H (12-78) U/L Alkaline Phosphatase 117 H (46-116) U/L C-Reactive Protein 0.20 (0.0-0.3) mg/dL Total Protein 7.6 (6.4-8.2) g/dL Albumin 3.9 (3.4-5.0) g/dL Globulin 3.7 H (2.3-3.5) g/dL Albumin/Globulin Ratio 1.1 L (1.2-2.2) Amylase (25-115) U/L Lipase (73-393) U/L Urine Color Urine Appearance Urine pH (4.5-8.0) Ur Specific [place] (1.008-1.030) Urine Protein (NEGATIVE) mg/dL Urine Glucose (UA) (NEGATIVE) mg/dL Urine Ketones (NEGATIVE) mg/dL Urine Occult Blood (NEGATIVE) Urine Nitrite (NEGAITVE) Urine Bilirubin (NEGATIVE) Urine Urobilinogen (NORMAL) mg/dL Ur Leukocyte Esterase (NEGATIVE) Urine RBC (0-5) Urine WBC (0-5) Ur Epithelial Cells Amorphous Sediment Urine Bacteria Urine Mucus Urine Opiates Screen (NEGATIVE) Ur Oxycodone Screen (NEGATIVE) Urine Methadone Screen (NEGATIVE) Ur Propoxyphene Screen (NEGATIVE) Ur Barbiturates Screen (NEGATIVE) Ur Tricyclics Screen (NEGATIVE) Ur Phencyclidine Scrn (NEGATIVE) Ur Amphetamine Screen (NEGATIVE) U Methamphetamines Scrn (NEGATIVE) Urine MDMA Screen (NEGATIVE) U Benzodiazepines Scrn (NEGATIVE) U Cocaine Metab Screen (NEGATIVE) U Marijuana (THC) Screen (NEGATIVE) 01/02/19 01/02/19 01/02/19 Range/Units 18:43 19:06 19:39 WBC (4.5-11.0) K/uL RBC (4.30-5.90) M/uL Hgb (12.0-15.0) g/dL Hct (40.0-54.0) % MCV (80-98) fL MCH (27-31) pg MCHC (32-36) % Plt Count (150-400) K/uL Neut % (Auto) (36-66) % Lymph % (Auto) (24-44) % [place] % (Auto) (2-6) % Eos % (Auto) (2-4) % Baso % (Auto) (0-1) % Sodium (140-148) mmol/L Potassium (3.6-5.2) mmol/L Chloride (100-108) mmol/L Carbon Dioxide (21-32) mmol/L Anion Gap (5.0-14.0) mmol/L BUN (7-18) mg/dL Creatinine (0.8-1.3) mg/dL Est Cr Clr Drug Dosing mL/min Estimated GFR (MDRD) (>60) Glucose (74-106) mg/dL Calcium (8.5-10.1) mg/dL Total Bilirubin (0.2-1.0) mg/dL AST (15-37) U/L ALT (12-78) U/L Alkaline Phosphatase (46-116) U/L C-Reactive Protein (0.0-0.3) mg/dL Total Protein (6.4-8.2) g/dL Albumin (3.4-5.0) g/dL Globulin (2.3-3.5) g/dL Albumin/Globulin Ratio (1.2-2.2) Amylase 20 L (25-115) U/L Lipase 111 (73-393) U/L Urine Color [place] Urine Appearance Clear Urine pH 5.0 (4.5-8.0) Ur Specific [place] 1.010 (1.008-1.030) Urine Protein Negative (NEGATIVE) mg/dL Urine Glucose (UA) Normal (NEGATIVE) mg/dL Urine Ketones Negative (NEGATIVE) mg/dL Urine Occult Blood Negative (NEGATIVE) Urine Nitrite Negative (NEGAITVE) Urine Bilirubin Negative (NEGATIVE) Urine Urobilinogen Normal (NORMAL) mg/dL Ur Leukocyte Esterase Negative (NEGATIVE) Urine RBC 0-5 (0-5) Urine WBC 0-5 (0-5) Ur Epithelial Cells Rare Amorphous Sediment Rare Urine Bacteria Not seen Urine Mucus Rare Urine Opiates Screen Negative (NEGATIVE) Ur Oxycodone Screen Negative (NEGATIVE) Urine Methadone Screen Negative (NEGATIVE) Ur Propoxyphene Screen Negative (NEGATIVE) Ur Barbiturates Screen Negative (NEGATIVE) Ur Tricyclics Screen Negative (NEGATIVE) Ur Phencyclidine Scrn Negative (NEGATIVE) Ur Amphetamine Screen Negative (NEGATIVE) U Methamphetamines Scrn Negative (NEGATIVE) Urine MDMA Screen Negative (NEGATIVE) U Benzodiazepines Scrn Negative (NEGATIVE) U Cocaine Metab Screen Negative (NEGATIVE) U Marijuana (THC) Screen Negative (NEGATIVE) Meds: Medications Generic Name Dose Route Start Last Admin Trade Name Freq PRN Reason Stop Dose Admin Sodium Chloride 1,000 mls @ 999 mls/hr 01/02/19 18:30 01/02/19 18:36 Normal Saline IV 999 mls/hr ASDIRECTED FAISAL Administration Sodium Chloride 1,000 mls @ 999 mls/hr 01/02/19 20:00 01/02/19 19:55 Normal Saline IV 999 mls/hr ASDIRECTED FAISAL Administration Discontinued Medications Generic Name Dose Route Start Last Admin Trade Name Freq PRN Reason Stop Dose Admin Hydromorphone HCl 1 mg 01/02/19 18:18 01/02/19 18:39 Dilaudid IVPUSH 01/02/19 18:19 1 mg ONETIME ONE Administration Hydromorphone HCl 1 mg 01/02/19 19:32 01/02/19 19:54 Dilaudid IVPUSH 01/02/19 19:33 1 mg ONETIME ONE Administration Ondansetron HCl 4 mg 01/02/19 18:17 01/02/19 18:38 Zofran IVPUSH 01/02/19 18:18 4 mg ONETIME ONE Administration - Re-Assessments/Exams Free Text/Narrative Re-Assessment/Exam: 01/02/19 21:49 pt had normal lab work. His cat scan of the abdoman showed multiple small stones in the kidneys. N0 ureteral stones. No other abnormalities were noted. 01/02/19 21:50 pt has elevated liver enzymes otherwise his studies were neg. Departure - Departure Time of Disposition: 21:51 Disposition: Home, Self-Care 01 Condition: Fair Clinical Impression: Left sided abdominal pain, Elevated liver enzymes - Discharge Information Instructions: Abdominal Pain, Adult, [id number] Referrals: PCP,None [Primary Care Provider] - Forms: ED Department Discharge Care Plan Goals: pt may need a referal to gastroenterology, appt in [place] with [place], tylenol for pain, norco 5/325 q6h prn for severe abdomanal pain #5 Pt has had 2 neg cat scan, in october he had a gastro and a colonoscopy. Biopies were obtained and found to be negative. He has been seen in ER with the abdomanal pain twice recently. Pt did have gastritis with his gastro. Will add prilosec 20 mg daily for his stomach. - My Orders Last 24 Hours: My Active Orders 01/02/19 18:30 Sodium Chloride 0.9% [Normal Saline] 1,000 ml IV ASDIRECTED 01/02/19 20:00 Sodium Chloride 0.9% [Normal Saline] 1,000 ml IV ASDIRECTED - Assessment/Plan Last 24 Hours: My Active Orders 01/02/19 18:30 Sodium Chloride 0.9% [Normal Saline] 1,000 ml IV ASDIRECTED 01/02/19 20:00 Sodium Chloride 0.9% [Normal Saline] 1,000 ml IV ASDIRECTED
[2019-01-02] MEDS ORDERED: Sodium Chloride 0.9% 1,000 ML IV SCH ×2 (18:30→20:00)
--- NOTE | 2019-01-02 21:13 | CRLCT ---
TECHNIQUE: Noncontrast CT abdomen and pelvis. INDICATION: Left-sided abdominal pain. COMPARISON: 12/27/[address] FINDINGS: A few tiny nonobstructing stones in both kidneys as before. No ureteral stone or hydronephrosis. Liver, spleen, pancreas, adrenal glands normal. Cholecystectomy. Bowel unremarkable. No adenopathy, free air, or free fluid. IMPRESSION: Bilateral nephrolithiasis. No obstruction. No change since prior exam. Dictated by Dereje Solis MD @ 01/02/2019 9:12:01 PM Please note that all CT scans at this facility use dose modulation, iterative reconstruction, and/or weight-based dosing when appropriate to reduce radiation dose to as low as reasonably achievable. Dictated by: Dereje Solis MD @ 01/02/2019 21:12:07 (Electronically Signed)
== END 2019-01-02 22:10 | disposition home or self-care (01) ==
LOC: JP.ED 17:39
DX: R10.9 Unspecified abdominal pain (principal); R94.5 Abnormal results of liver function studies; I10 Essential (primary) hypertension; F41.9 Anxiety disorder, unspecified; F32.9 Major depressive disorder, single episode, unspecified; Z79.899 Other long term (current) drug therapy; Z91.041 Radiographic dye allergy status; Z88.5 Allergy status to narcotic agent
CPT/HCPCS: 36415; 74176; 80053; 80305; 81001; 82150; 83690; 85025; 86140; 96361; 96374; 96375; 96376; 99284; J1170; J2405; J7030

== ENCOUNTER 2019-01-05 07:52 | Emergency (ER) | payer MEDICAID ==
--- NOTE | 2019-01-05 08:32 | EDM.PDOCBH ---
ED HPI GENERAL MEDICAL PROBLEM - General Chief Complaint: Drug or Alcohol Abuse Stated Complaint: REACTION ?? TO MED?? Time Seen by Provider: 01/05/19 08:20 Source of Information: Reports: Patient, Family, Old Records, RN History Limitations: Reports: No Limitations - History of Present Illness INITIAL COMMENTS - FREE TEXT/NARRATIVE: 33 yo male here with some unusual behavior. Was seen several times recently here and in the clinic for L sided abdominal pain without cause. He says the pain is gradually worsening. No vomiting, fever or diarrhea. Father said son looked out of it last night and today kept asking the same question over and over that he should have known the answer to. Lives with his father who brought him in today. Onset: Gradual Duration: Hour(s):, Waxing/Waning Location: Reports: Abdomen (subacute pain) Quality: Reports: Ache (L sided abdominal pain) Severity: Moderate Improves with: Reports: None Worsens with: Reports: Other (unknown) Associated Symptoms: Reports: Confusion (mild at times). Denies: Fever/Chills, Nausea/Vomiting, Rash Treatments [employer]: Reports: Other (see below) (none) Left Abdominal Pain Score (Numeric/FACES): 9 - Related Data Allergies Allergy/AdvReac Type Severity Reaction Status Date / Time meperidine [From Demerol] Allergy Hives Verified 01/05/19 08:16 iv contrast Allergy Severe Anaphylactic Uncoded 01/02/19 17:55 Shock Home Meds: Home Meds Gabapentin [Neurontin] 300 mg PO TID 08/21/17 [History] Propranolol HCl 20 mg PO TID 08/21/17 [History] risperiDONE 2 mg PO BEDTIME 08/21/17 [History] Acetaminophen [Tylenol Arthritis Pain] 650 mg PO ASDIRECTED PRN 10/13/17 [ History] Dextroamphetamine/Amphetamine [Adderall 20 mg Tablet] 40 mg PO DAILY 12/20/17 [ History] Zolpidem Tartrate [Ambien] 10 mg PO DAILY 09/30/18 [History] Amitriptyline HCl 75 mg PO BEDTIME 10/07/18 [History] DULoxetine HCl [Duloxetine HCl] 120 mg PO DAILY 01/02/19 [History] Acetaminophen/HYDROcodone [[place] 325-5 MG] 1 tab PO Q6H PRN 01/05/19 [History] Cyanocobalamin (Vitamin B-12) [B-12] 1 tab PO DAILY 01/05/19 [History] Cyclobenzaprine [Flexeril] 10 mg PO TID 01/05/19 [History] Dicyclomine [Bentyl] 1 tab PO DAILY 01/05/19 [History] Pantoprazole [ProTONIX] 1 tab PO DAILY 01/05/19 [History] Past Medical History HEENT History: Reports: Impaired Vision Other HEENT History: wears glasses Cardiovascular History: Reports: Arrhythmia, Hypertension, Other (See Below) Other Cardiovascular History: inverted T waves Respiratory History: Reports: Pneumothorax Gastrointestinal History: Reports: Cholelithiasis, Chronic Diarrhea, GI Bleed, Other (See Below) Other Gastrointestinal History: ulcers Genitourinary History: Reports: Renal Calculus, Other (See Below) Other Genitourinary History: right kidney reconstruction Musculoskeletal History: Reports: Back Pain, Chronic, Neck Pain, Chronic, Other (See Below) Other Musculoskeletal History: crush injury left hand, boxer fracture right hand Neurological History: Reports: Brain Injury, Concussion, Head Trauma, Migraines Psychiatric History: Reports: Anxiety, Depression, Psych Hospitalization(s), PTSD, Suicide Attempt, Suicidal Ideation Other Psychiatric History: PTSD childhood trauma Dermatologic History: Reports: Other (See Below) Other Dermatologic History: tattoos - Infectious Disease History Infectious Disease History: Reports: Chicken Pox - Past Surgical History HEENT Surgical History: Reports: Oral Surgery GI Surgical History: Reports: Cholecystectomy, Colonoscopy, EGD Male Surgical History: Reports: Kidney Stone Extraction, Renal Calculus, Other (See Below) Other Male Surgeries/Procedures: stents Musculoskeletal Surgical History: Reports: Other (See Below) Other Musculoskeletal Surgeries/Procedures:: partial amputation l ring finger Social & Family History - Family History Family Medical History: Noncontributory GI: Reports: Other (See Below) - Tobacco Use Smoking Status *Q: Light Tobacco Smoker Years of Tobacco use: 23 Packs/Tins Daily: 0.5 - Caffeine Use Caffeine Use: Reports: None Other Caffeine Use: 16 oz coffee daily - Recreational Drug Use Recreational Drug Use: No - Living Situation & Occupation Living situation: Reports: with Family (Lives in [facility] with his Immediate family.) Occupation: Employed ED ROS GENERAL - Review of Systems Review Of Systems: See Below Constitutional: Reports: No Symptoms HEENT: Reports: No Symptoms Respiratory: Reports: No Symptoms Cardiovascular: Reports: No Symptoms GI/Abdominal: Reports: Abdominal Pain (L sided). Denies: Black Stool, Bloody Stool, Constipation, Diarrhea, Decreased Appetite, Distension, Flatus, Hematemesis, Hematochezia, Melena, Nausea, Vomiting : Reports: No Symptoms Musculoskeletal: Reports: Back Pain (bilateral low back mild pain) Skin: Reports: No Symptoms Neurological: Reports: Confusion (mild at times) Psychiatric: Reports: Confusion (mild at times) ED EXAM, BEHAVIORAL HEALTH - Physical Exam Exam: See Below Exam Limited By: No Limitations General Appearance: Alert, WD/WN, No Apparent Distress, Obese Eye Exam: Bilateral Eye: Normal Inspection Ears: Normal External Exam, Normal Canal, Hearing Grossly Normal, Normal TMs Nose: Normal Inspection, No Blood Throat/Mouth: Normal Inspection, Normal Lips, Normal Oropharynx, Normal Voice, No Airway Compromise Head: Atraumatic, Normocephalic Neck: Normal Inspection Respiratory/Chest: No Respiratory Distress, Lungs Clear, Normal Breath Sounds, No Accessory Muscle Use Cardiovascular: Regular Rate, Rhythm, No Edema GI/Abdominal: Normal Bowel Sounds, Soft, No Distention, Tender (mild L sided). No: Non-Tender, Distended, Guarding, Rigid, Rebound Back Exam: Normal Inspection. No: CVA Tenderness (R), CVA Tenderness (L) Extremities: Normal Inspection, Normal Range of Motion, Non-Tender, No Pedal Edema Neurological: Alert, Normal Mood/Affect, CN II-XII Intact, Normal Cognition, Normal Gait, No Motor/Sensory Deficits, Oriented x 3 Psychiatric: Alert, Normal Affect, Normal Cognition, Normal Mood, Oriented Skin Exam: Warm, Dry, Intact, Normal color, No rash COURSE, BEHAVIORAL HEALTH COMP - Course Vital Signs: Last Vital Signs Temp 36.5 C 01/05/19 08:15 Pulse 99 01/05/19 08:15 Resp 16 01/05/19 08:15 BP 159/113 H 01/05/19 08:15 Pulse Ox 98 01/05/19 08:15 Orders, Labs, Meds: Laboratory Tests 01/05/19 01/05/19 01/05/19 Range/Units 08:26 08:26 08:26 WBC 8.5 (4.5-11.0) K/uL RBC 4.44 (4.30-5.90) M/uL Hgb 13.6 (12.0-15.0) g/dL Hct 40.8 (40.0-54.0) % MCV 92 (80-98) fL MCH 31 (27-31) pg MCHC 33 (32-36) % Plt Count 253 (150-400) K/uL C-Reactive Protein 0.30 (0.0-0.3) mg/dL Urine Opiates Screen (NEGATIVE) Ur Oxycodone Screen (NEGATIVE) Urine Methadone Screen (NEGATIVE) Ur Propoxyphene Screen (NEGATIVE) Ur Barbiturates Screen (NEGATIVE) Ur Tricyclics Screen (NEGATIVE) Ur Phencyclidine Scrn (NEGATIVE) Ur Amphetamine Screen (NEGATIVE) U Methamphetamines Scrn (NEGATIVE) Urine MDMA Screen (NEGATIVE) U Benzodiazepines Scrn (NEGATIVE) U Cocaine Metab Screen (NEGATIVE) U Marijuana (THC) Screen (NEGATIVE) Ethyl Alcohol < 3 mg/dL 01/05/19 Range/Units 08:38 WBC (4.5-11.0) K/uL RBC (4.30-5.90) M/uL Hgb (12.0-15.0) g/dL Hct (40.0-54.0) % MCV (80-98) fL MCH (27-31) pg MCHC (32-36) % Plt Count (150-400) K/uL C-Reactive Protein (0.0-0.3) mg/dL Urine Opiates Screen Negative (NEGATIVE) Ur Oxycodone Screen Negative (NEGATIVE) Urine Methadone Screen Negative (NEGATIVE) Ur Propoxyphene Screen Negative (NEGATIVE) Ur Barbiturates Screen Negative (NEGATIVE) Ur Tricyclics Screen Negative (NEGATIVE) Ur Phencyclidine Scrn Negative (NEGATIVE) Ur Amphetamine Screen Presumptive positive H (NEGATIVE) U Methamphetamines Scrn Negative (NEGATIVE) Urine MDMA Screen Negative (NEGATIVE) U Benzodiazepines Scrn Negative (NEGATIVE) U Cocaine Metab Screen Negative (NEGATIVE) U Marijuana (THC) Screen Negative (NEGATIVE) Ethyl Alcohol mg/dL Departure - Departure Time of Disposition: 09:05 Disposition: Home, Self-Care 01 Condition: Good Clinical Impression: Altered behavior - Discharge Information *PRESCRIPTION DRUG MONITORING PROGRAM REVIEWED*: No *COPY OF PRESCRIPTION DRUG MONITORING REPORT IN PATIENT GLORIA: No Referrals: Haroldson,Teresa A, PA [Primary Care Provider] - Forms: ED Department Discharge Additional Instructions: Follow up with your mental health provider. Return as needed. No change recommended in your meds at this time.
== END 2019-01-05 09:12 | disposition home or self-care (01) ==
LOC: JP.ED 07:52
DX: F91.9 Conduct disorder, unspecified (principal); I10 Essential (primary) hypertension; F41.9 Anxiety disorder, unspecified; F32.9 Major depressive disorder, single episode, unspecified; F17.210 Nicotine dependence, cigarettes, uncomplicated; Z91.041 Radiographic dye allergy status; Z87.442 Personal history of urinary calculi; Z88.5 Allergy status to narcotic agent; Z79.899 Other long term (current) drug therapy
CPT/HCPCS: 36415; 80305-QW; 85027; 86140; 99284; G0480

== ENCOUNTER 2019-07-01 21:57 | Emergency (ER) | payer MEDICAID ==
[2019-07-01] MEDS ORDERED: Ketorolac 60 MG/2 ML SDV IM ONE (22:30)
[2019-07-01] MEDS ORDERED: LORazepam 2 MG/ML SDV IM ONE (22:30)
--- NOTE | 2019-07-01 22:34 | EDM.PDOCBH ---
ED HPI GENERAL MEDICAL PROBLEM - General Chief Complaint: Back Pain or Injury Stated Complaint: EVAL Time Seen by Provider: 07/01/19 22:23 Source of Information: Reports: Patient, Family, RN Notes Reviewed History Limitations: Reports: No Limitations - History of Present Illness INITIAL COMMENTS - FREE TEXT/NARRATIVE: 34-year-old gentleman presents emergency department today complaint of PTSD, he has a significant history of anxiety and posttraumatic stress usually controlled with propranolol however the last 24 hours he has been having both auditory and visual hallucinations that he usually gets but it seems to be worse over the last 24 hours, the propranolol has not helped. He also complains of bilateral back pain no loss of bowel bladder no nausea vomiting short breath or chest pain bilat back Pain Score (Numeric/FACES): 6 - Related Data Allergies Allergy/AdvReac Type Severity Reaction Status Date / Time meperidine [From Demerol] Allergy Hives Verified 07/01/19 22:11 iv contrast Allergy Severe Anaphylactic Uncoded 07/01/19 22:11 Shock Home Meds: Home Meds Propranolol HCl 20 mg PO BID 08/21/17 [History] risperiDONE 2 mg PO BEDTIME 08/21/17 [History] Acetaminophen [Tylenol Arthritis Pain] 650 mg PO ASDIRECTED PRN 10/13/17 [ History] Dextroamphetamine/Amphetamine [Adderall 20 mg Tablet] 40 mg PO DAILY 12/20/17 [ History] DULoxetine HCl [Duloxetine HCl] 120 mg PO DAILY 01/02/19 [History] Eszopiclone 1 tab PO BEDTIME 07/01/19 [History] Propranolol [Inderal LA 24 Hr] 60 mg PO BEDTIME 07/01/19 [History] Past Medical History HEENT History: Reports: Impaired Vision Other HEENT History: wears glasses Cardiovascular History: Reports: Arrhythmia, Hypertension, Other (See Below) Other Cardiovascular History: inverted T waves Respiratory History: Reports: Pneumothorax Gastrointestinal History: Reports: Cholelithiasis, Chronic Diarrhea, GI Bleed, Other (See Below) Other Gastrointestinal History: ulcers Genitourinary History: Reports: Renal Calculus, Other (See Below) Other Genitourinary History: right kidney reconstruction Musculoskeletal History: Reports: Back Pain, Chronic, Neck Pain, Chronic, Other (See Below) Other Musculoskeletal History: crush injury left hand, boxer fracture right hand Neurological History: Reports: Brain Injury, Concussion, Head Trauma, Migraines Psychiatric History: Reports: Anxiety, Depression, Psych Hospitalization(s), PTSD, Suicide Attempt, Suicidal Ideation Other Psychiatric History: PTSD childhood trauma Endocrine/Metabolic History: Reports: Obesity/BMI 30+ Dermatologic History: Reports: Other (See Below) Other Dermatologic History: tattoos - Infectious Disease History Infectious Disease History: Reports: Chicken Pox - Past Surgical History Head Surgeries/Procedures: Reports: None HEENT Surgical History: Reports: Oral Surgery GI Surgical History: Reports: Cholecystectomy, Colonoscopy, EGD Male Surgical History: Reports: Kidney Stone Extraction, Renal Calculus, Other (See Below) Other Male Surgeries/Procedures: stents Musculoskeletal Surgical History: Reports: Other (See Below) Other Musculoskeletal Surgeries/Procedures:: partial amputation l ring finger Social & Family History - Family History Family Medical History: Noncontributory GI: Reports: Other (See Below) - Tobacco Use Smoking Status *Q: Current Every Day Smoker Years of Tobacco use: 22 Packs/Tins Daily: 0.5 - Caffeine Use Caffeine Use: Reports: Coffee, Energy Drinks, Soda Other Caffeine Use: 16 oz coffee daily - Recreational Drug Use Recreational Drug Use: No - Living Situation & Occupation Living situation: Reports: with Family (Lives in [facility] with his Immediate family.) Occupation: Employed ED ROS GENERAL - Review of Systems Review Of Systems: See Below Constitutional: Reports: No Symptoms HEENT: Reports: No Symptoms Respiratory: Reports: No Symptoms Cardiovascular: Reports: No Symptoms GI/Abdominal: Reports: No Symptoms Musculoskeletal: Reports: Back Pain Psychiatric: Reports: Anxiety, Hallucinations ED EXAM, BEHAVIORAL HEALTH - Physical Exam Exam: See Below Exam Limited By: No Limitations General Appearance: Alert, WD/WN, Anxious Respiratory/Chest: No Respiratory Distress, Lungs Clear, Normal Breath Sounds, No Accessory Muscle Use, Chest Non-Tender Cardiovascular: Regular Rate, Rhythm, No Murmur Back Exam: Normal Inspection, Full Range of Motion, Paraspinal Tenderness. No: CVA Tenderness (R), CVA Tenderness (L), Decreased Range of Motion, Vertebral Tenderness Psychiatric: Alert, Flat Affect, Auditory Hallucinations, Visual Hallucinations. No: Homicidal Thoughts, Suicidal Plan, Suicidal Thoughts COURSE, BEHAVIORAL HEALTH COMP - Course Vital Signs: Last Vital Signs Temp 97.7 F 07/01/19 22:15 Pulse 89 07/01/19 23:22 Resp 16 07/01/19 22:15 BP 128/80 07/01/19 23:22 Pulse Ox 97 07/01/19 22:15 Orders, Labs, Meds: Laboratory Tests 07/01/19 07/01/19 Range/Units 22:37 22:37 Urine Color Yellow (YELLOW) Urine Appearance Clear (CLEAR) Urine pH 6.0 (5.0-8.0) Ur Specific [place] 1.010 (1.008-1.030) Urine Protein Negative (NEGATIVE) mg/dL Urine Glucose (UA) Negative (NEGATIVE) mg/dL Urine Ketones Negative (NEGATIVE) mg/dL Urine Occult Blood Negative (NEGATIVE) Urine Nitrite Negative (NEGATIVE) Urine Bilirubin Negative (NEGATIVE) Urine Urobilinogen 0.2 (0.2-1.0) EU/dL Ur Leukocyte Esterase Negative (NEGATIVE) Urine RBC 0-5 (0-5) Urine WBC 0-5 (0-5) Ur Epithelial Cells Rare Amorphous Sediment Not seen Urine Bacteria Few Urine Mucus Not seen Urine Opiates Screen Negative (NEGATIVE) Ur Oxycodone Screen Negative (NEGATIVE) Urine Methadone Screen Negative (NEGATIVE) Ur Propoxyphene Screen Negative (NEGATIVE) Ur Barbiturates Screen Negative (NEGATIVE) Ur Tricyclics Screen Negative (NEGATIVE) Ur Phencyclidine Scrn Negative (NEGATIVE) Ur Amphetamine Screen Negative (NEGATIVE) U Methamphetamines Scrn Negative (NEGATIVE) Urine MDMA Screen Negative (NEGATIVE) U Benzodiazepines Scrn Negative (NEGATIVE) U Cocaine Metab Screen Negative (NEGATIVE) U Marijuana (THC) Screen Negative (NEGATIVE) Medications Discontinued Medications Generic Name Dose Route Start Last Admin Trade Name Freq PRN Reason Stop Dose Admin Fentanyl 50 mcg 07/01/19 23:14 07/01/19 23:21 Sublimaze IM 07/01/19 23:15 50 mcg ONETIME ONE Administration Ketorolac Tromethamine 60 mg 07/01/19 22:30 07/01/19 22:39 Toradol IM 07/01/19 22:31 60 mg ONETIME ONE Administration Lorazepam 1 mg 07/01/19 22:30 07/01/19 22:40 Ativan IM 07/01/19 22:31 1 mg ONETIME ONE Administration Departure - Departure Time of Disposition: 00:11 Disposition: Home, Self-Care 01 Condition: Fair Clinical Impression: Anxiety - Discharge Information Referrals: PCP,None [Primary Care Provider] - Forms: ED Department Discharge Additional Instructions: Use Ativan as needed for anxiety symptoms, please followup with your primary care provider in 3-5 days if not better, please call return to the emergency department with worsening of symptoms. Sepsis Event Note - Evaluation Sepsis Screening Result: No Definite Risk - Focused Exam Vital Signs: Vital Signs Temp Pulse Resp BP Pulse Ox 07/01/19 23:22 89 128/80 07/01/19 22:15 97.7 F 107 H 16 168/119 H 97 07/01/19 22:09 97.7 F 107 H 16 168/119 H 97 Date Exam was Performed: 07/02/19 Time Exam was Performed: 00:10 - Assessment/Plan Plan: Assessment Acuity = acute Site and laterality = anxiety Etiology = generalized anxiety disorder Manifestations = none Location of injury = Home Lab values = urinalysis negative urine drug screen is negative Plan Good improvement with Ativan provided IM he was also given Toradol for his back pain as well as fentanyl which did provide good relief, prescription for Ativan 1 mg p.o. 3 times daily PRN total #10 have him follow-up with his primary care in 3 to 5 days for further evaluation This note was dictated using [employer] voice recognition software please call with any questions on syntax or grammar.
[2019-07-01] MEDS ORDERED: fentaNYL 100 MCG/2 ML SDV IM ONE (23:14)
== END 2019-07-02 00:20 | disposition home or self-care (01) ==
LOC: JP.ED 21:57
DX: F41.9 Anxiety disorder, unspecified (principal); I10 Essential (primary) hypertension; F32.9 Major depressive disorder, single episode, unspecified; E66.9 Obesity, unspecified; Z68.32 Body mass index [BMI] 32.0-32.9, adult; F17.210 Nicotine dependence, cigarettes, uncomplicated; Z88.8 Allergy status to other drugs, medicaments and biological substances; Z91.041 Radiographic dye allergy status; Z79.899 Other long term (current) drug therapy
CPT/HCPCS: 80305; 81001; 96372; 99285; J1885; J2060; J3010

== ENCOUNTER 2019-09-07 12:19 | Emergency (ER) | payer MEDICAID, OTHER ==
--- NOTE | 2019-09-07 12:58 | EDM.PDOC ---
ED HPI GENERAL MEDICAL PROBLEM - General Chief Complaint: Head Injury Stated Complaint: FALL, HIT HEAD,DIZZY,NAUSEA Time Seen by Provider: 09/07/19 12:35 Source of Information: Reports: Patient History Limitations: Reports: No Limitations - History of Present Illness INITIAL COMMENTS - FREE TEXT/NARRATIVE: 34-year-old male claims he slipped on the ice in front of his workplace, falling back on his back and shoulders as well as the back of his head. No loss of consciousness, feels woozy and has "double vision". Mild nausea but no vomiting. He has memory of the event. He is being worked up for chronic back pain and had a lumbar MRI earlier this month. He is already on gabapentin, he tried some ibuprofen and it "did not help", although he only fell within the last couple hours. He does not look significantly uncomfortable. Onset: Sudden Duration: Hour(s): (1 hour ago) Location: Reports: Head, Neck, Back Associated Symptoms: Reports: No Other Symptoms Posterior Occipital Head Pain Score (Numeric/FACES): 9 - Related Data Allergies Allergy/AdvReac Type Severity Reaction Status Date / Time Iodinated Contrast Media Allergy Severe Anaphylactic Verified 09/07/19 12:30 Shock meperidine [From Demerol] Allergy Hives Verified 09/07/19 12:30 Home Meds: Home Meds Propranolol HCl 20 mg PO BID 08/21/17 [History] risperiDONE 3 mg PO BEDTIME 08/21/17 [History] Acetaminophen [Tylenol Arthritis Pain] 650 mg PO ASDIRECTED PRN 10/13/17 [ History] Dextroamphetamine/Amphetamine [Adderall 20 mg Tablet] 40 mg PO DAILY 12/20/17 [ History] DULoxetine HCl [Duloxetine HCl] 120 mg PO DAILY 01/02/19 [History] Eszopiclone 1 tab PO BEDTIME 07/01/19 [History] Propranolol [Inderal LA 24 Hr] 60 mg PO BEDTIME 07/01/19 [History] Past Medical History HEENT History: Reports: Impaired Vision Other HEENT History: wears glasses Cardiovascular History: Reports: Arrhythmia, Hypertension, Other (See Below) Other Cardiovascular History: inverted T waves Respiratory History: Reports: Pneumothorax Gastrointestinal History: Reports: Cholelithiasis, Chronic Diarrhea, GI Bleed, Other (See Below) Other Gastrointestinal History: ulcers Genitourinary History: Reports: Renal Calculus, Other (See Below) Other Genitourinary History: right kidney reconstruction Musculoskeletal History: Reports: Back Pain, Chronic, Neck Pain, Chronic, Other (See Below) Other Musculoskeletal History: crush injury left hand, boxer fracture right hand Neurological History: Reports: Brain Injury, Concussion, Head Trauma, Migraines Psychiatric History: Reports: Anxiety, Depression, Psych Hospitalization(s), PTSD, Suicide Attempt, Suicidal Ideation Other Psychiatric History: PTSD childhood trauma Endocrine/Metabolic History: Reports: Obesity/BMI 30+ Dermatologic History: Reports: Other (See Below) Other Dermatologic History: tattoos - Infectious Disease History Infectious Disease History: Reports: Chicken Pox - Past Surgical History Head Surgeries/Procedures: Reports: None HEENT Surgical History: Reports: Oral Surgery GI Surgical History: Reports: Cholecystectomy, Colonoscopy, EGD Male Surgical History: Reports: Kidney Stone Extraction, Renal Calculus, Other (See Below) Other Male Surgeries/Procedures: stents Musculoskeletal Surgical History: Reports: Other (See Below) Other Musculoskeletal Surgeries/Procedures:: partial amputation l ring finger Social & Family History - Family History Family Medical History: Noncontributory GI: Reports: Other (See Below) - Tobacco Use Smoking Status *Q: Current Every Day Smoker Years of Tobacco use: 21 Packs/Tins Daily: 0.5 Used Tobacco, but Quit: No - Caffeine Use Caffeine Use: Reports: Soda Other Caffeine Use: 16 oz coffee daily - Recreational Drug Use Recreational Drug Use: No - Living Situation & Occupation Living situation: Reports: with Family (Lives in [facility] with his Immediate family.) Occupation: Employed ED ROS GENERAL - Review of Systems Review Of Systems: See Below Constitutional: Denies: Fever, Chills HEENT: Reports: Vision Change (blurry, fuzzy subjectively) Respiratory: Denies: Shortness of Breath Cardiovascular: Denies: Chest Pain GI/Abdominal: Reports: Nausea (mild). Denies: Vomiting Musculoskeletal: Reports: Neck Pain, Back Pain Skin: Denies: Bruising Neurological: Denies: Trouble Speaking, Difficulty Walking, Change in Speech Psychiatric: Reports: Anxiety ED EXAM, HEAD INJURY - Physical Exam Exam: See Below Exam Limited By: No Limitations General Appearance: Alert, No Apparent Distress Head: Atraumatic (I cannot find any objective visual evidence of injury such as hematoma, abrasion or bruising of the scalp) Nexus Criteria: No: Evidence of Intoxication, Altered Level of Consciousness, Focal Neurological Deficit, Painful Distraction Injuries Eyes: Bilateral Eye: EOMI, PERRL Neck: Other (Some mild to moderate paracervical muscle tenderness to palpation as well as parathoracic muscle tenderness) Respiratory: No Respiratory Distress Neurologic: No Motor/Sensory Deficits, Normal Mood/Affect, Oriented x 3, Other ( Romberg is negative, no pronator drift) Skin: Normal Color, Warm/Dry - Abimael Coma Score Best Eye Response (Abimael): (4) Open Spontaneously Best Verbal Response ([place]): (5) Oriented Best Motor Response (Abimael): (6) Obeys Commands Course - Vital Signs Last Recorded V/S: Last Vital Signs Temp 95.8 F L 09/07/19 12:43 Pulse 90 09/07/19 12:43 Resp 20 09/07/19 12:43 BP 164/113 H 09/07/19 12:43 Pulse Ox 99 09/07/19 12:43 - Re-Assessments/Exams Free Text/Narrative Re-Assessment/Exam: 09/07/19 12:55 Explained to the patient I do not have any objective findings or significant historical reason to run him to the CT scan. Neurologically he is intact and has some paraspinous and paracervical muscle tenderness which would be expected after a fall. He can continue his regular medications with occasional ibuprofen. Ice down sore areas and continue activity as tolerated. 09/07/19 13:11 Prior to discharge patient became somewhat angry that I did not write a note for him to be off work and I "did not do anything". I explained to him a second time that there are no objective reasons to order any further imaging studies but I did write him a note to be off work for the next 2 days to monitor his symptoms. If he worsens he can return. Departure - Departure Time of Disposition: 13:13 Disposition: Home, Self-Care 01 Clinical Impression: Upper back strain Qualifiers: Encounter type: initial encounter Qualified Code(s): S29.012A - Strain of muscle and tendon of back wall of thorax, initial encounter Head injury, acute, without loss of consciousness Qualifiers: Encounter type: initial encounter Qualified Code(s): S09.90XA - Unspecified injury of head, initial encounter - Discharge Information Instructions: Head Injury, Adult, [id number] Referrals: Christina Carl MD [Primary Care Provider] - Forms: ED Department Discharge Care Plan Goals: Continue activity as tolerated, continue your regular medications. Ibuprofen and ice to your sore areas should help over the next several days. Consider rechecking next week if not improving satisfactorily. A physical therapy consultation may be needed next week if not improving. Sepsis Event Note - Evaluation Sepsis Screening Result: No Definite Risk - Focused Exam Vital Signs: Vital Signs Temp Pulse Resp BP Pulse Ox 09/07/19 12:43 95.8 F L 90 20 164/113 H 99 09/07/19 12:42 95.8 F L 90 20 164/113 H 99 Date Exam was Performed: 09/07/19 Time Exam was Performed: 13:28
== END 2019-09-07 13:12 | disposition home or self-care (01) ==
LOC: JP.ED 12:19
DX: S09.90XA Unspecified injury of head, initial encounter (principal); S29.012A Strain of muscle and tendon of back wall of thorax, initial encounter; I10 Essential (primary) hypertension; F17.210 Nicotine dependence, cigarettes, uncomplicated; Z88.8 Allergy status to other drugs, medicaments and biological substances; Z91.041 Radiographic dye allergy status; Z79.899 Other long term (current) drug therapy; W19.XXXA Unspecified fall, initial encounter; Y99.0 Civilian activity done for income or pay
CPT/HCPCS: 99283

== ENCOUNTER 2019-09-09 15:42 | Emergency (ER) | payer OTHER ==
--- NOTE | 2019-09-09 18:17 | EDM.PDOC ---
ED HPI GENERAL MEDICAL PROBLEM - General Chief Complaint: Back Pain or Injury Stated Complaint: NAUSEA DIZZY HEADACHE NECK AND BACK Time Seen by Provider: 09/09/19 18:00 Source of Information: Reports: Patient, Old Records History Limitations: Reports: No Limitations - History of Present Illness INITIAL COMMENTS - FREE TEXT/NARRATIVE: 34 yo male here a couple days after falling and hitting his head. He was already seen for this once. He called the clinic for follow up and was referred back to the ER. Has an appt with his provider this next Thursday. Reports MOON, mild dizziness, and nausea without vomiting. Some rib tenderness bilaterally R > L. Onset: Sudden Onset Date: 09/07/19 Duration: Day(s): (2), Constant Location: Reports: Head, Chest Quality: Reports: Ache Severity: Moderate Improves with: Reports: None Worsens with: Reports: None Context: Reports: Trauma Associated Symptoms: Reports: Headaches, Nausea/Vomiting (no vomiting). 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: Other (see below) (none, has used acetaminophen and ibuprofen earlier) - Related Data Allergies Allergy/AdvReac Type Severity Reaction Status Date / Time Iodinated Contrast Media Allergy Severe Anaphylactic Verified 09/09/19 17:09 Shock meperidine [From Demerol] Allergy Hives Verified 09/09/19 17:09 Home Meds: Home Meds Propranolol HCl 20 mg PO BID 08/21/17 [History] risperiDONE 3 mg PO BEDTIME 08/21/17 [History] Acetaminophen [Tylenol Arthritis Pain] 650 mg PO ASDIRECTED PRN 10/13/17 [ History] Dextroamphetamine/Amphetamine [Adderall 20 mg Tablet] 40 mg PO DAILY 12/20/17 [ History] DULoxetine HCl [Duloxetine HCl] 120 mg PO DAILY 01/02/19 [History] Eszopiclone 1 tab PO BEDTIME 07/01/19 [History] Propranolol [Inderal LA 24 Hr] 60 mg PO BEDTIME 07/01/19 [History] Past Medical History HEENT History: Reports: Impaired Vision Other HEENT History: wears glasses Cardiovascular History: Reports: Arrhythmia, Hypertension, Other (See Below) Other Cardiovascular History: inverted T waves Respiratory History: Reports: Pneumothorax Gastrointestinal History: Reports: Cholelithiasis, Chronic Diarrhea, GI Bleed, Other (See Below) Other Gastrointestinal History: ulcers Genitourinary History: Reports: Renal Calculus, Other (See Below) Other Genitourinary History: right kidney reconstruction Musculoskeletal History: Reports: Back Pain, Chronic, Neck Pain, Chronic, Other (See Below) Other Musculoskeletal History: crush injury left hand, boxer fracture right hand Neurological History: Reports: Brain Injury, Concussion, Head Trauma, Migraines Psychiatric History: Reports: Anxiety, Depression, Psych Hospitalization(s), PTSD, Suicide Attempt, Suicidal Ideation Other Psychiatric History: PTSD childhood trauma Endocrine/Metabolic History: Reports: Obesity/BMI 30+ Dermatologic History: Reports: Other (See Below) Other Dermatologic History: tattoos - Infectious Disease History Infectious Disease History: Reports: Chicken Pox - Past Surgical History Head Surgeries/Procedures: Reports: None HEENT Surgical History: Reports: Oral Surgery GI Surgical History: Reports: Cholecystectomy, Colonoscopy, EGD Male Surgical History: Reports: Kidney Stone Extraction, Renal Calculus, Other (See Below) Other Male Surgeries/Procedures: stents Musculoskeletal Surgical History: Reports: Other (See Below) Other Musculoskeletal Surgeries/Procedures:: partial amputation l ring finger Social & Family History - Family History Family Medical History: Noncontributory GI: Reports: Other (See Below) - Tobacco Use Smoking Status *Q: Current Every Day Smoker Years of Tobacco use: 21 Packs/Tins Daily: 0.2 - Caffeine Use Caffeine Use: Reports: Coffee, Soda Other Caffeine Use: 16 oz coffee daily - Recreational Drug Use Recreational Drug Use: No - Living Situation & Occupation Living situation: Reports: with Family (Lives in [facility] with his Immediate family.) Occupation: Employed ED ROS GENERAL - Review of Systems Review Of Systems: See Below Constitutional: Reports: No Symptoms HEENT: Reports: No Symptoms Respiratory: Reports: No Symptoms Cardiovascular: Reports: No Symptoms Endocrine: Reports: No Symptoms GI/Abdominal: Reports: Nausea. Denies: Abdominal Pain, Black Stool, Bloody Stool, Constipation, Diarrhea, Distension, Hematemesis, Hematochezia, Vomiting : Reports: No Symptoms Musculoskeletal: Reports: Other (Rib pain bilaterally R>L) Skin: Reports: No Symptoms Neurological: Reports: Dizziness, Headache Psychiatric: Reports: No Symptoms ED EXAM, HEAD INJURY - Physical Exam Exam: See Below Exam Limited By: No Limitations General Appearance: Alert, WD/WN, No Apparent Distress Head: Atraumatic, Normocephalic. No: Scalp Swelling, Scalp Ecchymosis, Scalp Hematoma, Scalp Tenderness, Bruno's Sign, Facial Ecchymosis, Facial Swelling, Facial Tenderness, Raccoon Eyes Eyes: Bilateral Eye: EOMI, PERRL Ears: Normal External Exam, Normal Canal, Hearing Grossly Normal, Normal TMs Nose: Normal Inspection, No Blood. No: Clear Rhinorrhea Throat/Mouth: Normal Inspection, Normal Lips, Normal Oropharynx, Normal Voice, No Airway Compromise Neck: Non-Tender, Full Range of Motion Respiratory: No Respiratory Distress, Lungs Clear, Normal Breath Sounds, No Accessory Muscle Use Cardiovascular: Regular Rate, Rhythm, No Edema GI/Abdominal Exam: Normal Bowel Sounds, Soft, Non-Tender, No Distention Back Exam: Normal Inspection. No: CVA Tenderness (R), CVA Tenderness (L) Extremities: Normal Inspection, Normal Range of Motion, Non-Tender, No Pedal Edema Neurologic: cupola man II-XII nml As Tested, No Motor/Sensory Deficits, Alert, Normal Mood/Affect, Oriented x 3 Skin: Normal Color, Warm/Dry - Abimael Coma Score Best Eye Response ([place]): (4) Open Spontaneously Best Verbal Response (Walker): (5) Oriented Best Motor Response ([place]): (6) Obeys Commands Course - Vital Signs Last Recorded V/S: Last Vital Signs Temp 36.3 C 09/09/19 17:08 Pulse 95 09/09/19 17:08 Resp 14 09/09/19 17:08 BP 161/103 H 09/09/19 17:08 Pulse Ox 97 09/09/19 17:08 Departure - Departure Time of Disposition: 18:19 Disposition: Home, Self-Care 01 Condition: Fair Clinical Impression: Rib contusion Qualifiers: Encounter type: initial encounter Laterality: unspecified laterality Qualified Code(s): S20.219A - Contusion of unspecified front wall of thorax, initial encounter Concussion Qualifiers: Encounter type: initial encounter Loss of consciousness presence/duration: without LOC Qualified Code(s): S06.0X0A - Concussion without loss of consciousness, initial encounter - Discharge Information *PRESCRIPTION DRUG MONITORING PROGRAM REVIEWED*: No *COPY OF PRESCRIPTION DRUG MONITORING REPORT IN PATIENT GLORIA: No Referrals: Christina Carl MD [Primary Care Provider] - Additional Instructions: Use Zofran as needed for nausea control. Take acetaminophen and/or ibuprofen as needed for pain relief. Rest. Recheck with your doctor on Thursday. Sepsis Event Note - Evaluation Sepsis Screening Result: No Definite Risk - Focused Exam Vital Signs: Vital Signs Temp Pulse Resp BP Pulse Ox 09/09/19 17:08 36.3 C 95 14 161/103 H 97 09/09/19 16:54 36.3 C 95 14 161/103 H 97 Date Exam was Performed: 09/09/19 Time Exam was Performed: 18:12
== END 2019-09-09 18:34 | disposition home or self-care (01) ==
LOC: JP.ED 15:42
DX: S06.0X0A Concussion without loss of consciousness, initial encounter (principal); S20.219A Contusion of unspecified front wall of thorax, initial encounter; F17.210 Nicotine dependence, cigarettes, uncomplicated; I10 Essential (primary) hypertension; F41.9 Anxiety disorder, unspecified; F32.9 Major depressive disorder, single episode, unspecified; E66.9 Obesity, unspecified; Z88.5 Allergy status to narcotic agent; Z79.899 Other long term (current) drug therapy; Z91.041 Radiographic dye allergy status; W19.XXXA Unspecified fall, initial encounter
CPT/HCPCS: 99283

== ENCOUNTER 2019-10-07 13:22 | Emergency (ER) | payer MEDICAID, OTHER ==
--- NOTE | 2019-10-07 13:40 | EDM.PDOC ---
ED HPI GENERAL MEDICAL PROBLEM - General Chief Complaint: Respiratory Problem Stated Complaint: COUGH AND SOB Time Seen by Provider: 10/07/19 13:39 Source of Information: Reports: Patient History Limitations: Reports: No Limitations - History of Present Illness INITIAL COMMENTS - FREE TEXT/NARRATIVE: 34-year-old male was sent in by his employer to be medically evaluated because he is been coughing and complaining of shortness of breath. No fever. He is a smoker. Denies sore throat or runny nose, no headache. Onset: Unknown/Unsure Associated Symptoms: Reports: Cough - Related Data Allergies Allergy/AdvReac Type Severity Reaction Status Date / Time Iodinated Contrast Media Allergy Severe Anaphylactic Verified 09/09/19 17:09 Shock meperidine [From Demerol] Allergy Hives Verified 09/09/19 17:09 Home Meds: Home Meds Propranolol HCl 20 mg PO BID 08/21/17 [History] risperiDONE 3 mg PO BEDTIME 08/21/17 [History] Acetaminophen [Tylenol Arthritis Pain] 650 mg PO ASDIRECTED PRN 10/13/17 [ History] Dextroamphetamine/Amphetamine [Adderall 20 mg Tablet] 40 mg PO DAILY 12/20/17 [ History] DULoxetine HCl [Duloxetine HCl] 120 mg PO DAILY 01/02/19 [History] Eszopiclone 1 tab PO BEDTIME 07/01/19 [History] Propranolol [Inderal LA 24 Hr] 60 mg PO BEDTIME 07/01/19 [History] Ondansetron [Zofran ODT] 4 mg PO Q6H PRN #7 tab.dis 09/09/19 [Rx] Past Medical History HEENT History: Reports: Impaired Vision Other HEENT History: wears glasses Cardiovascular History: Reports: Arrhythmia, Hypertension, Other (See Below) Other Cardiovascular History: inverted T waves Respiratory History: Reports: Pneumothorax Gastrointestinal History: Reports: Cholelithiasis, Chronic Diarrhea, GI Bleed, Other (See Below) Other Gastrointestinal History: ulcers Genitourinary History: Reports: Renal Calculus, Other (See Below) Other Genitourinary History: right kidney reconstruction Musculoskeletal History: Reports: Back Pain, Chronic, Neck Pain, Chronic, Other (See Below) Other Musculoskeletal History: crush injury left hand, boxer fracture right hand Neurological History: Reports: Brain Injury, Concussion, Head Trauma, Migraines Psychiatric History: Reports: Anxiety, Depression, Psych Hospitalization(s), PTSD, Suicide Attempt, Suicidal Ideation Other Psychiatric History: PTSD childhood trauma Endocrine/Metabolic History: Reports: Obesity/BMI 30+ Dermatologic History: Reports: Other (See Below) Other Dermatologic History: tattoos - Infectious Disease History Infectious Disease History: Reports: Chicken Pox - Past Surgical History Head Surgeries/Procedures: Reports: None HEENT Surgical History: Reports: Oral Surgery GI Surgical History: Reports: Cholecystectomy, Colonoscopy, EGD Male Surgical History: Reports: Kidney Stone Extraction, Renal Calculus, Other (See Below) Other Male Surgeries/Procedures: stents Musculoskeletal Surgical History: Reports: Other (See Below) Other Musculoskeletal Surgeries/Procedures:: partial amputation l ring finger Social & Family History - Family History Family Medical History: Noncontributory GI: Reports: Other (See Below) - Tobacco Use Smoking Status *Q: Heavy Tobacco Smoker Years of Tobacco use: 21 Packs/Tins Daily: 0.5 - Caffeine Use Caffeine Use: Reports: Coffee, Soda Other Caffeine Use: 16 oz coffee daily - Recreational Drug Use Recreational Drug Use: No - Living Situation & Occupation Living situation: Reports: with Family (Lives in [facility] with his Immediate family.) Occupation: Employed ED ROS GENERAL - Review of Systems Review Of Systems: See Below Constitutional: Denies: Fever, Chills, Malaise HEENT: Denies: Ear Pain, Throat Pain Respiratory: Reports: Shortness of Breath, Cough. Denies: Sputum Cardiovascular: Denies: Chest Pain GI/Abdominal: Denies: Nausea, Vomiting ED EXAM, GENERAL - Physical Exam Exam: See Below Exam Limited By: No Limitations General Appearance: Alert, No Apparent Distress Eye Exam: Bilateral Eye: Normal Inspection Head: Atraumatic Respiratory/Chest: No Respiratory Distress, Lungs Clear Cardiovascular: Regular Rate, Rhythm, Tachycardia Neurological: Alert, Oriented Psychiatric: Normal Affect, Normal Mood Skin Exam: Warm, Dry Course - Vital Signs Last Recorded V/S: Last Vital Signs Temp 96 F L 10/07/19 13:30 Pulse 111 H 10/07/19 13:30 Resp 16 10/07/19 13:30 BP 149/100 H 10/07/19 13:30 Pulse Ox 96 10/07/19 13:30 - Re-Assessments/Exams Free Text/Narrative Re-Assessment/Exam: 10/07/19 13:50 This patient was in the emergency room for almost 1/2-hour and had no cough while present. His O2 saturations are 97%, and his lungs are completely clear to auscultation and he shows no difficulty breathing whatsoever. Respiratory rate is normal. No work-up is needed Departure - Departure Time of Disposition: 14:17 Disposition: Home, Self-Care 01 Clinical Impression: Cough in adult - Discharge Information Instructions: Cough, Adult, [id number] Referrals: PCP,None [Primary Care Provider] - Forms: ED Department Discharge Care Plan Goals: Cover your face when coughing, return for further evaluation if worsening such as fever or increased shortness of breath. Wash hands frequently. Sepsis Event Note - Evaluation Sepsis Screening Result: No Definite Risk - Focused Exam Vital Signs: Vital Signs Temp Pulse Resp BP Pulse Ox 10/07/19 13:30 96 F L 111 H 16 149/100 H 96 10/07/19 13:29 96 F L 111 H 16 149/100 H 96 Date Exam was Performed: 10/07/19 Time Exam was Performed: 17:22
== END 2019-10-07 14:17 | disposition home or self-care (01) ==
LOC: JP.ED 13:22
DX: R05 Cough (principal); F17.210 Nicotine dependence, cigarettes, uncomplicated; F32.9 Major depressive disorder, single episode, unspecified; F41.9 Anxiety disorder, unspecified; E66.9 Obesity, unspecified; Z68.23 Body mass index [BMI] 23.0-23.9, adult; Z91.041 Radiographic dye allergy status; Z88.5 Allergy status to narcotic agent; Z79.899 Other long term (current) drug therapy
CPT/HCPCS: 99284

== ENCOUNTER 2019-12-30 18:27 | Emergency (ER) | payer MEDICAID ==
[2019-12-30] MEDS ORDERED: Ketorolac 60 MG/2 ML SDV IM ONE (19:06)
--- NOTE | 2019-12-30 19:11 | EDM.PDOC ---
ED HPI GENERAL MEDICAL PROBLEM - General Chief Complaint: Chest Pain Stated Complaint: PRESSURE ON CHEST Time Seen by Provider: 12/30/19 18:55 Source of Information: Reports: Patient, Old Records, RN History Limitations: Reports: No Limitations - History of Present Illness INITIAL COMMENTS - FREE TEXT/NARRATIVE: 34 yo male presents with chest heaviness anteriorly x 3 days. Had a fever also for 2 days, gone today. Took acetaminophen this morning without relief. Sx's worse in the vertical position. Has a rare cough. No SOB. Had a Covid test in the clinic yesterday(was not seen) that is pending. Has no cardiac hx. No calf pain or LE edema. Onset: Gradual Onset Date: 12/27/19 Duration: Day(s): (3), Constant Location: Reports: Chest Quality: Reports: Pressure Severity: Mild Improves with: Reports: Rest (lying) Worsens with: Reports: Movement (standing) Context: Reports: Other (see HPI) Associated Symptoms: Reports: Chest Pain, Cough (rare), Fever/Chills (gone today). 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 (last dose nearly 12 hrs ago) Anterior Chest Pain Score (Numeric/FACES): 7 - Related Data Allergies Allergy/AdvReac Type Severity Reaction Status Date / Time Iodinated Contrast Media Allergy Severe Anaphylactic Verified 12/30/19 18:41 Shock meperidine [From Demerol] Allergy Hives Verified 12/30/19 18:41 Home Meds: Home Meds Propranolol HCl 20 mg PO BID 08/21/17 [History] risperiDONE 3 mg PO BEDTIME 08/21/17 [History] Acetaminophen [Tylenol Arthritis Pain] 650 mg PO ASDIRECTED PRN 10/13/17 [History] Dextroamphetamine/Amphetamine [Adderall 20 mg Tablet] 40 mg PO DAILY 12/20/17 [History] DULoxetine HCl [Duloxetine HCl] 120 mg PO DAILY 01/02/19 [History] Eszopiclone 1 tab PO BEDTIME 07/01/19 [History] Propranolol [Inderal LA 24 Hr] 60 mg PO BEDTIME 07/01/19 [History] Ondansetron [Zofran ODT] 4 mg PO Q6H PRN #7 tab.dis 09/09/19 [Rx] Past Medical History HEENT History: Reports: Impaired Vision Other HEENT History: wears glasses Cardiovascular History: Reports: Arrhythmia, Hypertension, Other (See Below) Other Cardiovascular History: inverted T waves Respiratory History: Reports: Pneumothorax Gastrointestinal History: Reports: Cholelithiasis, Chronic Diarrhea, GI Bleed, Other (See Below) Other Gastrointestinal History: ulcers Genitourinary History: Reports: Renal Calculus, Other (See Below) Other Genitourinary History: right kidney reconstruction Musculoskeletal History: Reports: Back Pain, Chronic, Neck Pain, Chronic, Other (See Below) Other Musculoskeletal History: crush injury left hand, boxer fracture right hand Neurological History: Reports: Brain Injury, Concussion, Head Trauma, Migraines Psychiatric History: Reports: Anxiety, Depression, Psych Hospitalization(s), PTSD, Suicide Attempt, Suicidal Ideation Other Psychiatric History: PTSD childhood trauma Endocrine/Metabolic History: Reports: Obesity/BMI 30+ Dermatologic History: Reports: Other (See Below) Other Dermatologic History: tattoos - Infectious Disease History Infectious Disease History: Reports: Chicken Pox, Measles, Mumps - Past Surgical History HEENT Surgical History: Reports: Oral Surgery GI Surgical History: Reports: Cholecystectomy, Colonoscopy, EGD Male Surgical History: Reports: Kidney Stone Extraction, Renal Calculus, Other (See Below) Other Male Surgeries/Procedures: stents Musculoskeletal Surgical History: Reports: Other (See Below) Other Musculoskeletal Surgeries/Procedures:: partial amputation l ring finger Social & Family History - Family History Family Medical History: Noncontributory GI: Reports: Other (See Below) - Tobacco Use Smoking Status *Q: Current Every Day Smoker Years of Tobacco use: 15 Packs/Tins Daily: 0.5 Used Tobacco, but Quit: No Second Hand Smoke Exposure: Yes - Caffeine Use Caffeine Use: Reports: Coffee, Soda Other Caffeine Use: 16 oz coffee daily - Alcohol Use Days Per Week of Alcohol Use: 0 - Recreational Drug Use Recreational Drug Use: No - Living Situation & Occupation Living situation: Reports: with Family (Lives in [facility] with his Immediate family.) Occupation: Employed ED ROS GENERAL - Review of Systems Review Of Systems: See Below Constitutional: Reports: Malaise. Denies: Fever (gone today), Chills HEENT: Reports: No Symptoms Respiratory: Reports: Cough (rare). Denies: Shortness of Breath, Wheezing, Pleuritic Chest Pain, Sputum, Hemoptysis Cardiovascular: Reports: Chest Pain (anterior), Dyspnea on Exertion (minimal). Denies: Edema, Lightheadedness, Palpitations, Syncope Endocrine: Reports: No Symptoms GI/Abdominal: Reports: No Symptoms : Reports: No Symptoms Musculoskeletal: Reports: No Symptoms Skin: Reports: No Symptoms Neurological: Reports: No Symptoms ED EXAM, GENERAL - Physical Exam Exam: See Below Exam Limited By: No Limitations General Appearance: Alert, WD/WN, No Apparent Distress Eye Exam: Bilateral Eye: Normal Inspection Ears: Normal External Exam, Normal Canal, Hearing Grossly Normal, Normal TMs Ear Exam: Bilateral Ear: Auricle Normal, Canal Normal, TM normal Nose: Normal Inspection, No Blood Throat/Mouth: Normal Inspection, Normal Lips, Normal Oropharynx, Normal Voice, No Airway Compromise Head: Atraumatic, Normocephalic Neck: Normal Inspection Respiratory/Chest: No Respiratory Distress, Lungs Clear, Normal Breath Sounds, No Accessory Muscle Use Cardiovascular: Regular Rate, Rhythm, No Edema Peripheral Pulses: 0: Carotid (L) GI/Abdominal: Normal Bowel Sounds, Soft, Non-Tender, No Distention Back Exam: Normal Inspection. No: CVA Tenderness (R), CVA Tenderness (L) Extremities: Normal Inspection, Normal Range of Motion, Non-Tender, No Pedal Edema Neurological: Alert, Oriented, CN II-XII Intact, Normal Cognition, No Motor/Sensory Deficits Psychiatric: Normal Affect, Normal Mood Skin Exam: Warm, Dry, Intact, Normal Color, No Rash EKG INTERPRETATION EKG Date: 12/30/19 Time: 19:05 Rhythm: NSR Rate (Beats/Min): 96 Dawson: Normal P-Wave: Present QRS: Normal ST-T: Normal QT: Normal Comparison: Change From Previous EKG (T wave inversion AVF is new, HR increase of about 25/min.) Course - Vital Signs Last Recorded V/S: Last Vital Signs Temp 36.2 C 12/30/19 19:05 Pulse 101 H 12/30/19 19:05 Resp 16 12/30/19 19:05 BP 137/94 H 12/30/19 19:05 Pulse Ox 96 12/30/19 19:05 - Orders/Labs/Meds Orders: Active Orders 24 hr Category Date Time Status EKG Documentation Completion [RC] ASDIRECTED Care 06/19/20 18:28 Active EKG 12 Lead [EK] Routine Ther 12/30/19 18:28 Ordered Labs: Laboratory Tests 12/30/19 12/30/19 12/30/19 Range/Units 19:05 19:19 19:24 WBC 10.3 (4.5-11.0) K/uL RBC 4.72 (4.30-5.90) M/uL Hgb 14.6 (12.0-15.0) g/dL Hct 44.0 (40.0-54.0) % MCV 93 (80-98) fL MCH 31 (27-31) pg MCHC 33 (32-36) % Plt Count 254 (150-400) K/uL Troponin I < 0.017 (0.000-0.056) ng/mL Urine Color Yellow (YELLOW) Urine Appearance Clear (CLEAR) Urine pH 6.5 (5.0-8.0) Ur Specific [place] 1.015 (1.008-1.030) Urine Protein Negative (NEGATIVE) mg/dL Urine Glucose (UA) Negative (NEGATIVE) mg/dL Urine Ketones Negative (NEGATIVE) mg/dL Urine Occult Blood Negative (NEGATIVE) Urine Nitrite Negative (NEGATIVE) Urine Bilirubin Negative (NEGATIVE) Urine Urobilinogen 0.2 (0.2-1.0) EU/dL Ur Leukocyte Esterase Negative (NEGATIVE) Urine RBC Not seen (0-5) Urine WBC Not seen (0-5) Ur Epithelial Cells Not seen Amorphous Sediment Moderate Urine Bacteria Not seen Urine Mucus Not seen Meds: Medications Discontinued Medications Generic Name Dose Route Start Last Admin Trade Name Freq PRN Reason Stop Dose Admin Ketorolac Tromethamine 60 mg 12/30/19 19:06 12/30/19 19:15 Toradol IM 12/30/19 19:07 60 mg ONETIME ONE Administration - Re-Assessments/Exams Free Text/Narrative Re-Assessment/Exam: 12/30/19 19:51 Minimal change with Toradol so far. Departure - Departure Time of Disposition: 20:00 Disposition: Home, Self-Care 01 Condition: Fair Clinical Impression: Chest wall pain Instructions: Chest Wall Pain, [id number] Referrals: Christina Carl MD [Primary Care Provider] - Forms: ED Department Discharge Additional Instructions: Take acetaminophen up to 1000 mg every 6 hrs for pain relief. Add naproxen 220 mg 2 tabs or 440 mg every 8 hrs with food for added relief, next dose after 1 am tonight. Recheck with your provider on Thursday. Sepsis Event Note (ED) - Evaluation Sepsis Screening Result: No Definite Risk - Focused Exam Vital Signs: Vital Signs Temp Pulse Resp BP Pulse Ox 12/30/19 19:05 36.2 C 101 H 16 137/94 H 96 12/30/19 18:58 36.2 C 104 H 16 163/113 H 96 - My Orders Last 24 Hours: My Active Orders 12/30/19 18:28 EKG Documentation Completion [RC] ASDIRECTED EKG 12 Lead [EK] Routine - Assessment/Plan Last 24 Hours: My Active Orders 12/30/19 18:28 EKG Documentation Completion [RC] ASDIRECTED EKG 12 Lead [EK] Routine
== END 2019-12-30 19:59 | disposition home or self-care (01) ==
LOC: JP.ED 18:27
DX: R07.89 Other chest pain (principal); I10 Essential (primary) hypertension; F41.9 Anxiety disorder, unspecified; F32.9 Major depressive disorder, single episode, unspecified; F17.210 Nicotine dependence, cigarettes, uncomplicated; E66.9 Obesity, unspecified; Z68.33 Body mass index [BMI] 33.0-33.9, adult; Z91.041 Radiographic dye allergy status; Z88.5 Allergy status to narcotic agent; Z79.899 Other long term (current) drug therapy
CPT/HCPCS: 36415; 81001; 84484; 85027; 93005; 96372; 99285; J1885

== ENCOUNTER 2020-02-03 16:49 | Emergency (ER) | payer MEDICAID, OTHER ==
[2020-02-03] MEDS ORDERED: oxyCODONE 5 MG Tab PO ONE (17:49)
--- NOTE | 2020-02-03 18:02 | EDM.PDOC ---
ED HPI GENERAL MEDICAL PROBLEM - General Chief Complaint: Respiratory Problem Stated Complaint: COUGHING UP BLOOD, CHEST PRESSURE Time Seen by Provider: 02/03/20 17:35 Source of Information: Reports: Patient History Limitations: Reports: No Limitations - History of Present Illness INITIAL COMMENTS - FREE TEXT/NARRATIVE: Kosta is a 34 year old male who presents to the ED today with c/o one month hx of progressive sob and cough, now hemoptysis for the last 2 weeks, worse at night. Had a chest x-ray done in clinic about a month ago when cough started, was told at that time he had a right lung nodule and was waiting to have an outpatient CT scan done. Patient endorses right sided rib pain that started two weeks ago and has progressed as well, has not taken any medications for his pain. Patient reports pain is worse with coughing and deep breathing. Patient denies any bleeding disorder hx. He denies any fever/chills. Patient denies any recent weight loss. Onset: Gradual Duration: Day(s): (30) Right Chest Pain Score (Numeric/FACES): 8 - Related Data Allergies Allergy/AdvReac Type Severity Reaction Status Date / Time Iodinated Contrast Media Allergy Severe Anaphylactic Verified 02/03/20 17:30 Shock meperidine [From Demerol] Allergy Hives Verified 02/03/20 17:30 Home Meds: Home Meds Propranolol HCl 20 mg PO BID 08/21/17 [History] risperiDONE 3 mg PO BEDTIME 08/21/17 [History] Acetaminophen [Tylenol Arthritis Pain] 650 mg PO ASDIRECTED PRN 10/13/17 [History] Dextroamphetamine/Amphetamine [Adderall 20 mg Tablet] 30 mg PO DAILY 12/20/17 [History] DULoxetine HCl [Duloxetine HCl] 120 mg PO DAILY 01/02/19 [History] Eszopiclone 1 tab PO BEDTIME 07/01/19 [History] Propranolol [Inderal LA 24 Hr] 60 mg PO BEDTIME 07/01/19 [History] Eszopiclone [Lunesta] 3 mg PO BEDTIME 02/03/20 [History] LORazepam [Ativan] 1 mg PO DAILY 02/03/20 [History] Past Medical History HEENT History: Reports: Impaired Vision Other HEENT History: wears glasses Cardiovascular History: Reports: Arrhythmia, Hypertension, Other (See Below) Other Cardiovascular History: inverted T waves Respiratory History: Reports: Pneumothorax, SOB Gastrointestinal History: Reports: Cholelithiasis, Chronic Diarrhea, GI Bleed, Other (See Below) Other Gastrointestinal History: ulcers Genitourinary History: Reports: Renal Calculus, Other (See Below) Other Genitourinary History: right kidney reconstruction Musculoskeletal History: Reports: Back Pain, Chronic, Neck Pain, Chronic, Other (See Below) Other Musculoskeletal History: crush injury left hand, boxer fracture right hand Neurological History: Reports: Brain Injury, Concussion, Head Trauma, Migraines Psychiatric History: Reports: Anxiety, Depression, Psych Hospitalization(s), PTSD, Suicide Attempt, Suicidal Ideation Other Psychiatric History: PTSD childhood trauma Endocrine/Metabolic History: Reports: Obesity/BMI 30+ Dermatologic History: Reports: Other (See Below) Other Dermatologic History: tattoos - Infectious Disease History Infectious Disease History: Reports: Chicken Pox, Measles, Mumps - Past Surgical History Head Surgeries/Procedures: Reports: None HEENT Surgical History: Reports: Oral Surgery Cardiovascular Surgical History: Reports: None Respiratory Surgical History: Reports: None GI Surgical History: Reports: Cholecystectomy, Colonoscopy, EGD Male Surgical History: Reports: Kidney Stone Extraction, Renal Calculus, Other (See Below) Other Male Surgeries/Procedures: stents Endocrine Surgical History: Reports: None Neurological Surgical History: Reports: None Musculoskeletal Surgical History: Reports: Other (See Below) Other Musculoskeletal Surgeries/Procedures:: partial amputation l ring finger Dermatological Surgical History: Reports: None Social & Family History - Family History Family Medical History: Noncontributory GI: Reports: Other (See Below) - Tobacco Use Smoking Status *Q: Current Every Day Smoker Years of Tobacco use: 12 Packs/Tins Daily: 0.3 Used Tobacco, but Quit: No Second Hand Smoke Exposure: No - Caffeine Use Caffeine Use: Reports: Coffee, Soda Other Caffeine Use: 16 oz coffee daily - Recreational Drug Use Recreational Drug Use: No - Living Situation & Occupation Living situation: Reports: with Family (Lives in [facility] with his Immediate family.) Occupation: Employed ED ROS GENERAL - Review of Systems Review Of Systems: Comprehensive ROS is negative, except as noted in HPI. ED EXAM, GENERAL - Physical Exam Exam: See Below Exam Limited By: No Limitations General Appearance: Alert, WD/WN, No Apparent Distress Nose: Normal Inspection Throat/Mouth: Normal Inspection Head: Atraumatic Neck: Normal Inspection Respiratory/Chest: No Respiratory Distress, Lungs Clear, Other (right sided rib and anterior chest wall tenderness, no crepitus) Cardiovascular: Normal Peripheral Pulses, Tachycardia Back Exam: Normal Inspection Extremities: Normal Inspection Neurological: Alert, Oriented Psychiatric: Normal Affect, Normal Mood Skin Exam: Warm, Dry, Intact. No: No Rash Lymphatic: No Adenopathy Course - Vital Signs Last Recorded V/S: Last Vital Signs Temp 36.2 C 02/03/20 17:35 Pulse 103 H 02/03/20 18:24 Resp 21 H 02/03/20 18:24 BP 125/84 02/03/20 18:24 Pulse Ox 95 02/03/20 18:24 Kosta is a 34 year old male, presents to the ED today with hemoptysis, sob, cough, chest wall pain. Please refer to HPI and focused exam. Patient arrives here tachycardic with a rate of 112, he is not in any acute respiratory distress, he is not hypoxic, he does have right sided chest wall tenderness on exam. Patient was given a dose of oxycodone here. blood work obtained including a d dimer. CBC unremarkable. I am concerned about a PE with the tachycardia and hemoptysis and sob, this could be an oncological process given hx of lung nodule and patient is a smoker. He has cut back to 3 cigarettes per day. Patient denies any unilateral leg swelling, no hx of DVT or PE. 1830-D Dimer WNL. CT of Chest done w/o contrast. CT shows 0.6 cm lung nodule, recommend f/u CT scan in 12 months. No other acute findings. Blood work stable. Patient reassured. Patient encouraged to quit smoking altogether. Tessalon Rafa for cough, patient has albuterol inhaler at home. Follow up with PCP as needed. Reasons to return to the ED discussed, patient agreeable and discharged in stable condition. - Orders/Labs/Meds Orders: Active Orders 24 hr Category Date Time Status Peripheral IV Care [RC] . DIRECTED Care 02/03/20 18:25 Active Sodium Chloride 0.9% [Saline Flush] Med 02/03/20 18:25 Active 10 ml FLUSH ASDIRECTED PRN Peripheral IV Insertion Adult [OM.PC] Routine Oth 02/03/20 18:25 Ordered Medication Orders Sodium Chloride (Saline Flush) 10 ml FLUSH ASDIRECTED PRN PRN Reason: Keep Vein Open Last Admin: 02/03/20 18:39 Dose: 10 ml Documented by: NAE Labs: Laboratory Tests 02/03/20 02/03/20 02/03/20 Range/Units 17:40 17:40 17:40 WBC 9.9 (4.5-11.0) K/uL RBC 4.81 (4.30-5.90) M/uL Hgb 14.6 (12.0-15.0) g/dL Hct 43.2 (40.0-54.0) % MCV 90 (80-98) fL MCH 30 (27-31) pg MCHC 34 (32-36) % Plt Count 265 (150-400) K/uL Neut % (Auto) 65 (36-66) % Lymph % (Auto) 25 (24-44) % [place] % (Auto) 8 H (2-6) % Eos % (Auto) 2 (2-4) % Baso % (Auto) 0 (0-1) % PT (9.5-12.0) sec INR (0.80-1.20) D-Dimer, Quantitative 127 (0.0-400.0) ng/mL Sodium 138 L (140-148) mmol/L Potassium 3.6 (3.6-5.2) mmol/L Chloride 100 (100-108) mmol/L Carbon Dioxide 23 (21-32) mmol/L Anion Gap 18.6 H (5.0-14.0) mmol/L BUN 9 (7-18) mg/dL Creatinine 1.0 (0.8-1.3) mg/dL Est Cr Clr Drug Dosing 118.74 mL/min Estimated GFR (MDRD) > 60 (>60) Glucose 106 (74-106) mg/dL Calcium 9.3 (8.5-10.1) mg/dL 02/03/20 Range/Units 17:40 WBC (4.5-11.0) K/uL RBC (4.30-5.90) M/uL Hgb (12.0-15.0) g/dL Hct (40.0-54.0) % MCV (80-98) fL MCH (27-31) pg MCHC (32-36) % Plt Count (150-400) K/uL Neut % (Auto) (36-66) % Lymph % (Auto) (24-44) % [place] % (Auto) (2-6) % Eos % (Auto) (2-4) % Baso % (Auto) (0-1) % PT 10.4 (9.5-12.0) sec INR 0.95 (0.80-1.20) D-Dimer, Quantitative (0.0-400.0) ng/mL Sodium (140-148) mmol/L Potassium (3.6-5.2) mmol/L Chloride (100-108) mmol/L Carbon Dioxide (21-32) mmol/L Anion Gap (5.0-14.0) mmol/L BUN (7-18) mg/dL Creatinine (0.8-1.3) mg/dL Est Cr Clr Drug Dosing mL/min Estimated GFR (MDRD) (>60) Glucose (74-106) mg/dL Calcium (8.5-10.1) mg/dL Meds: Medications Generic Name Dose Route Start Last Admin Trade Name Freq PRN Reason Stop Dose Admin Sodium Chloride 10 ml 02/03/20 18:25 02/03/20 18:39 Saline Flush FLUSH 10 ml ASDIRECTED PRN Administration Keep Vein Open Discontinued Medications Generic Name Dose Route Start Last Admin Trade Name Freq PRN Reason Stop Dose Admin Diphenhydramine HCl 50 mg 02/03/20 18:29 Benadryl IVPUSH 02/03/20 18:30 ONETIME ONE Famotidine 20 mg 02/03/20 18:30 Pepcid IVPUSH 02/03/20 18:31 ONETIME ONE Sodium Chloride 1,000 mls @ 999 mls/hr 02/03/20 18:25 02/03/20 18:39 Normal Saline IV 02/03/20 19:25 999 mls/hr .BOLUS ONE Administration Methylprednisolone Sodium Succinate 125 mg 02/03/20 18:30 Solu-Medrol IVPUSH 02/03/20 18:31 ONETIME ONE Oxycodone HCl 10 mg 02/03/20 17:49 02/03/20 17:59 Oxycodone PO 02/03/20 17:50 10 mg ONETIME ONE Administration Departure - Departure Time of Disposition: 20:00 Disposition: Home, Self-Care 01 Condition: Good Clinical Impression: Cough in adult, Hemoptysis - Discharge Information Instructions: Hemoptysis, Cough, Adult, [id number] Referrals: Christina Carl MD [Primary Care Provider] - Forms: ED Department Discharge Additional Instructions: Take Tessalon Perles as needed as prescribed. Continue working on quitting smoking altogether. Follow up with PCP if cough and blood persist. CT scan in 12 months to evaluate nodule. Sepsis Event Note (ED) - Evaluation Sepsis Screening Result: No Definite Risk - Focused Exam Vital Signs: Vital Signs Temp Pulse Resp BP Pulse Ox 02/03/20 18:24 103 H 21 H 125/84 95 02/03/20 17:56 108 H 23 H 140/89 95 02/03/20 17:35 36.2 C 112 H 15 152/107 H 95 02/03/20 17:34 36.2 C 112 H 15 152/107 H 95 - My Orders Last 24 Hours: My Active Orders 02/03/20 18:25 Peripheral IV Care [RC] . DIRECTED Sodium Chloride 0.9% [Saline Flush] 10 ml FLUSH ASDIRECTED PRN Peripheral IV Insertion Adult [OM.PC] Routine - Assessment/Plan Last 24 Hours: My Active Orders 02/03/20 18:25 Peripheral IV Care [RC] . DIRECTED Sodium Chloride 0.9% [Saline Flush] 10 ml FLUSH ASDIRECTED PRN Peripheral IV Insertion Adult [OM.PC] Routine
[2020-02-03] MEDS ORDERED: Sodium Chloride 0.9% 10 ML Syringe FLUSH PRN (18:25)
[2020-02-03] MEDS ORDERED: Sodium Chloride 0.9% 1,000 ML IV ONE (18:25)
[2020-02-03] MEDS ORDERED: diphenhydrAMINE 50 MG/ML SDV IVPUSH ONE (18:29)
[2020-02-03] MEDS ORDERED: methylPREDNISolone Sodium Succinate 125 MG/2 ML SDV IVPUSH ONE (18:30)
[2020-02-03] MEDS ORDERED: Famotidine 20 MG/2 ML SDV IVPUSH ONE (18:30)
--- NOTE | 2020-02-03 19:24 | CRLCT ---
Indication: Hemoptysis. Right-sided rib pain. Pulmonary nodule. Technique: Multiple axial images were obtained from the apices to the diaphragm without contrast. Sagittal and coronal reformatted images were obtained. Comparison: None. Findings: In the right upper lobe. On image number 34 of series 3 there is a 0.6 cm smooth pulmonary nodule. There is no other pulmonary nodules seen. There is atelectasis in the dependent portion of the lungs. The lungs are otherwise clear. There is no endobronchial lesion is seen. There is no pleural effusion. There is no mediastinal, hilar or axillary adenopathy with residual low thymus tissue in the anterior mediastinum. There are surgical clips in the gallbladder fossa consistent with a previous cholecystectomy. There are 3 stones seen in the right kidney largest measures 0.3 cm. There is no fracture seen on bone windows. Impression: 0.6 cm pulmonary nodule. Right upper lobe. Recommend followup per the Fleischner society guidelines described below. No acute infiltrate or pleural effusion. Status post cholecystectomy. Right Kidney stones. FLEISCHNER SOCIETY GUIDELINES - SOLID NODULES: SINGLE LOW RISK - nodule less than 6 mm: No routine follow-up. - nodule 6-8 mm: CT at 6-12 months, then consider CT at 18-24 months. - nodule greater than 8 mm: Consider CT at 3 months, PET/CT or tissue sampling. SINGLE HIGH RISK - nodule less than 6 mm: Optional CT at 12 months. - nodule 6-8 mm: CT at 6-12 months, then CT at 18-24 months. - nodule greater than 8 mm: Consider CT at 3 months, PET/CT or tissue sampling. MULTIPLE LOW RISK - nodule less than 6 mm: No routine follow-up. - nodule 6-8 mm: CT at 3-6 months, then consider CT at 18-24 months. - nodule greater than 8 mm: CT at 3-6 months, then consider CT at 18-24 months. MULTIPLE HIGH RISK - nodule less than 6 mm: Optional CT at 12 months. - nodule 6-8 mm: CT at 3-6 months, then at 18-24 months. - nodule greater than 8 mm: CT at 3-6 months, then at 18-24 months. Please note that all CT scans at this facility use dose modulation, iterative reconstruction, and/or weight-based dosing when appropriate to reduce radiation dose to as low as reasonably achievable. Dictated by Joel Smith MD @ Feb 03 2020 7:13PM Signed by Dr. Joel Smith @ Feb 03 2020 7:22PM
== END 2020-02-03 20:00 | disposition home or self-care (01) ==
LOC: JP.ED 16:49
DX: R04.2 Hemoptysis (principal); I10 Essential (primary) hypertension; F41.9 Anxiety disorder, unspecified; F32.9 Major depressive disorder, single episode, unspecified; E66.9 Obesity, unspecified; Z68.31 Body mass index [BMI] 31.0-31.9, adult; F17.210 Nicotine dependence, cigarettes, uncomplicated; Z91.041 Radiographic dye allergy status; Z88.5 Allergy status to narcotic agent; Z79.899 Other long term (current) drug therapy
CPT/HCPCS: 36415; 71250; 80048; 85025; 85379; 85610; 99285; A9270; J7030

== ENCOUNTER 2020-07-06 15:39 | Emergency (ER) | payer MEDICAID ==
[2020-07-06] MEDS ORDERED: HYDROmorphone 0.5 MG/0.5 ML Syringe IM ONE (17:13)
[2020-07-06] MEDS ORDERED: Phenazopyridine 95 MG Tab PO ONE (17:14)
--- NOTE | 2020-07-06 17:19 | EDM.PDOC ---
ED HPI GENERAL MEDICAL PROBLEM - General Chief Complaint: Genitourinary Problem Stated Complaint: SWOLLEN GENITALS, HURTS TO URINATE Time Seen by Provider: 07/06/20 17:15 Source of Information: Reports: Patient History Limitations: Reports: No Limitations - History of Present Illness INITIAL COMMENTS - FREE TEXT/NARRATIVE: pt arrived here stating that he has painful testicles that have become more swollen during the day at work. He works at [employer]. He has alot of burning when he voids. He has had epididmytis in the past. He does have a hisrtory of kidney stones. Onset: Other (pt feels like it started this am. ) Duration: Hour(s): Location: Reports: Abdomen, Generalized Associated Symptoms: Reports: No Other Symptoms - Related Data Allergies Allergy/AdvReac Type Severity Reaction Status Date / Time Iodinated Contrast Media Allergy Severe Anaphylactic Verified 02/03/20 17:30 Shock meperidine [From Demerol] Allergy Hives Verified 02/03/20 17:30 Home Meds: Home Meds Propranolol HCl 20 mg PO BID 08/21/17 [History] risperiDONE 3 mg PO BEDTIME 08/21/17 [History] Acetaminophen [Tylenol Arthritis Pain] 650 mg PO ASDIRECTED PRN 10/13/17 [History] Dextroamphetamine/Amphetamine [Adderall 20 mg Tablet] 30 mg PO DAILY 12/20/17 [History] DULoxetine HCl [Duloxetine HCl] 120 mg PO DAILY 01/02/19 [History] Propranolol [Inderal LA 24 Hr] 60 mg PO BEDTIME 07/01/19 [History] Eszopiclone [Lunesta] 3 mg PO BEDTIME 02/03/20 [History] LORazepam [Ativan] 1 mg PO DAILY 02/03/20 [History] Past Medical History HEENT History: Reports: Impaired Vision Other HEENT History: wears glasses Cardiovascular History: Reports: Arrhythmia, Hypertension, Other (See Below) Other Cardiovascular History: inverted T waves Respiratory History: Reports: Pneumothorax, SOB Gastrointestinal History: Reports: Cholelithiasis, Chronic Diarrhea, GI Bleed, Other (See Below) Other Gastrointestinal History: ulcers Genitourinary History: Reports: Renal Calculus, Other (See Below) Other Genitourinary History: right kidney reconstruction Musculoskeletal History: Reports: Back Pain, Chronic, Neck Pain, Chronic, Other (See Below) Other Musculoskeletal History: crush injury left hand, boxer fracture right hand Neurological History: Reports: Brain Injury, Concussion, Head Trauma, Migraines Psychiatric History: Reports: Anxiety, Depression, Psych Hospitalization(s), PTSD, Suicide Attempt, Suicidal Ideation Other Psychiatric History: PTSD childhood trauma Endocrine/Metabolic History: Reports: Obesity/BMI 30+ Dermatologic History: Reports: Other (See Below) Other Dermatologic History: tattoos - Infectious Disease History Infectious Disease History: Reports: Chicken Pox, Measles, Mumps - Past Surgical History Head Surgeries/Procedures: Reports: None HEENT Surgical History: Reports: Oral Surgery Cardiovascular Surgical History: Reports: None Respiratory Surgical History: Reports: None GI Surgical History: Reports: Cholecystectomy, Colonoscopy, EGD Male Surgical History: Reports: Kidney Stone Extraction, Renal Calculus, Other (See Below) Other Male Surgeries/Procedures: stents Endocrine Surgical History: Reports: None Neurological Surgical History: Reports: None Musculoskeletal Surgical History: Reports: Other (See Below) Other Musculoskeletal Surgeries/Procedures:: partial amputation l ring finger Dermatological Surgical History: Reports: None Social & Family History - Family History Family Medical History: No Pertinent Family History GI: Reports: Other (See Below) - Caffeine Use Caffeine Use: Reports: Coffee, Soda Other Caffeine Use: 16 oz coffee daily - Recreational Drug Use Recreational Drug Use: No - Living Situation & Occupation Living situation: Reports: with Family (Lives in [facility] with his Immediate family.) Occupation: Employed ED ROS GENERAL - Review of Systems Review Of Systems: See Below Constitutional: Reports: No Symptoms HEENT: Reports: No Symptoms Respiratory: Reports: No Symptoms Cardiovascular: Reports: Dyspnea on Exertion Endocrine: Reports: No Symptoms : Reports: Dysuria, Frequency, Other ( swollen testicles. ) Musculoskeletal: Reports: No Symptoms Skin: Reports: No Symptoms Neurological: Reports: No Symptoms ED EXAM, RENAL/ - Physical Exam Exam: See Below Text/Narrative:: pt arrived with burning on urination and swollen testicles. Exam Limited By: No Limitations General Appearance: Alert (Male) Exam: Scrotum Tenderness (R), Testicular Tenderness (L), Testicular Tenderness (R) Rectal (Males) Exam: Deferred Back Exam: Normal Inspection Extremities: Normal Inspection Course - Vital Signs Last Recorded V/S: Last Vital Signs Temp 35.6 C L 07/06/20 15:54 Pulse 84 07/06/20 15:54 Resp 16 07/06/20 15:54 BP 141/90 H 07/06/20 15:54 Pulse Ox 97 07/06/20 15:54 - Orders/Labs/Meds Orders: Active Orders 24 hr Category Date Time Status BASIC METABOLIC PANEL,BMP [CHEM] Stat Lab 07/06/20 17:24 Received Labs: Laboratory Tests 07/06/20 07/06/20 Range/Units 17:10 17:24 WBC 11.0 (4.5-11.0) K/uL RBC 4.64 (4.30-5.90) M/uL Hgb 13.9 (12.0-15.0) g/dL Hct 42.4 (40.0-54.0) % MCV 91 (80-98) fL MCH 30 (27-31) pg MCHC 33 (32-36) % Plt Count 276 (150-400) K/uL Neut % (Auto) 60 (36-66) % Lymph % (Auto) 31 (24-44) % [place] % (Auto) 6 (2-6) % Eos % (Auto) 2 (2-4) % Baso % (Auto) 1 (0-1) % Urine Color Yellow (YELLOW) Urine Appearance Clear (CLEAR) Urine pH 7.0 (5.0-8.0) Ur Specific [place] 1.020 (1.008-1.030) Urine Protein Negative (NEGATIVE) mg/dL Urine Glucose (UA) Negative (NEGATIVE) mg/dL Urine Ketones Negative (NEGATIVE) mg/dL Urine Occult Blood Negative (NEGATIVE) Urine Nitrite Negative (NEGATIVE) Urine Bilirubin Negative (NEGATIVE) Urine Urobilinogen 0.2 (0.2-1.0) EU/dL Ur Leukocyte Esterase Negative (NEGATIVE) Urine RBC 0-5 (0-5) Urine WBC Not seen (0-5) Ur Epithelial Cells Rare Amorphous Sediment Few Urine Bacteria Few Urine Mucus Not seen Meds: Medications Discontinued Medications Generic Name Dose Route Start Last Admin Trade Name Freq PRN Reason Stop Dose Admin Ceftriaxone Sodium 1 gm 07/06/20 17:27 07/06/20 17:36 Rocephin IM 07/06/20 17:28 1 gm ONETIME ONE Administration Hydromorphone HCl 0.5 mg 07/06/20 17:13 07/06/20 17:20 Dilaudid IM 07/06/20 17:14 0.5 mg ONETIME ONE Administration Lidocaine HCl 5 ml 07/06/20 17:28 07/06/20 17:37 Xylocaine-Mpf 1% INJECT 07/06/20 17:29 5 ml ONETIME ONE Administration Phenazopyridine HCl 190 mg 07/06/20 17:14 07/06/20 17:20 Urinary Pain Relief PO 07/06/20 17:15 190 mg ONETIME ONE Administration - Re-Assessments/Exams Free Text/Narrative Re-Assessment/Exam: 07/06/20 17:33 urine looks clear. He was given pyridium, rocephen im and dilaudid .5. Departure - Departure Time of Disposition: 17:34 Disposition: Home, Self-Care 01 Condition: Fair Clinical Impression: Orchitis, Urethritis - Discharge Information Instructions: Orchitis Referrals: Christina Carl MD [Primary Care Provider] - Forms: ED Department Discharge Care Plan Goals: push fluids, scrotal support , cipro 500mg bid, norco 5/325 q6h #6 folow up with usual provider in the next 4-5 days. pyridium 200mg bid. Sepsis Event Note (ED) - Evaluation Sepsis Screening Result: No Definite Risk - Focused Exam Vital Signs: Vital Signs Temp Pulse Resp BP Pulse Ox 07/06/20 15:54 35.6 C L 84 16 141/90 H 97 07/06/20 15:53 35.6 C L 84 16 141/90 H 97 - My Orders Last 24 Hours: My Active Orders 07/06/20 17:24 BASIC METABOLIC PANEL,BMP [CHEM] Stat - Assessment/Plan Last 24 Hours: My Active Orders 07/06/20 17:24 BASIC METABOLIC PANEL,BMP [CHEM] Stat
[2020-07-06] MEDS ORDERED: cefTRIAXone 1 GM Vial IM ONE (17:27)
== END 2020-07-06 17:49 | disposition home or self-care (01) ==
LOC: JP.ED 15:39
DX: N34.2 Other urethritis (principal); N45.2 Orchitis; I10 Essential (primary) hypertension; F41.9 Anxiety disorder, unspecified; F32.9 Major depressive disorder, single episode, unspecified; E66.9 Obesity, unspecified; Z68.33 Body mass index [BMI] 33.0-33.9, adult; Z87.442 Personal history of urinary calculi; Z91.048 Other nonmedicinal substance allergy status; Z88.8 Allergy status to other drugs, medicaments and biological substances; Z79.899 Other long term (current) drug therapy
CPT/HCPCS: 36415; 80048; 81001; 85025; 96372; 99284; A9270; J0696; J1170; J2001

== ENCOUNTER 2020-07-08 14:15 | Emergency (ER) | payer MEDICAID ==
[2020-07-08] MEDS ORDERED: Ketorolac 60 MG/2 ML SDV IM ONE (14:54)
--- NOTE | 2020-07-08 14:54 | EDM.PDOC ---
ED HPI GENERAL MEDICAL PROBLEM - General Chief Complaint: Genitourinary Problem Stated Complaint: MAYBE UTI HERE TWO DAYS AGO Time Seen by Provider: 07/08/20 14:46 Source of Information: Reports: Patient, RN Notes Reviewed History Limitations: Reports: No Limitations - History of Present Illness INITIAL COMMENTS - FREE TEXT/NARRATIVE: 35-year-old gentleman presents emergency department today complaint of testicular pain, he was evaluated yesterday in the emergency department started on antibiotics of Cipro and given a shot of Rocephin while in the ED unfortunately he is restricted and cannot fill any medications therefore he is back today as the pain has gotten worse his feels his testicles have also enlarged as well. Last attack he had like this was about 1 year ago - Related Data Allergies Allergy/AdvReac Type Severity Reaction Status Date / Time Iodinated Contrast Media Allergy Severe Anaphylactic Verified 07/08/20 14:29 Shock meperidine [From Demerol] Allergy Hives Verified 07/08/20 14:29 Home Meds: Home Meds Propranolol HCl 20 mg PO BID 08/21/17 [History] risperiDONE 3 mg PO BEDTIME 08/21/17 [History] Acetaminophen [Tylenol Arthritis Pain] 650 mg PO ASDIRECTED PRN 10/13/17 [History] Dextroamphetamine/Amphetamine [Adderall 20 mg Tablet] 30 mg PO DAILY 12/20/17 [History] DULoxetine HCl [Duloxetine HCl] 120 mg PO DAILY 01/02/19 [History] Propranolol [Inderal LA 24 Hr] 60 mg PO BEDTIME 07/01/19 [History] Eszopiclone [Lunesta] 3 mg PO BEDTIME 02/03/20 [History] LORazepam [Ativan] 1 mg PO DAILY 02/03/20 [History] Ciprofloxacin HCl [Cipro] 500 mg PO BID 07/08/20 [History] Phenazopyridine HCl [Pyridium] 200 mg PO BID 07/08/20 [History] Past Medical History HEENT History: Reports: Impaired Vision Other HEENT History: wears glasses Cardiovascular History: Reports: Arrhythmia, Hypertension, Other (See Below) Other Cardiovascular History: inverted T waves Respiratory History: Reports: Pneumothorax, SOB Gastrointestinal History: Reports: Cholelithiasis, Chronic Diarrhea, GI Bleed, Other (See Below) Other Gastrointestinal History: ulcers Genitourinary History: Reports: Renal Calculus, Other (See Below) Other Genitourinary History: right kidney reconstruction Musculoskeletal History: Reports: Back Pain, Chronic, Neck Pain, Chronic, Other (See Below) Other Musculoskeletal History: crush injury left hand, boxer fracture right hand Neurological History: Reports: Brain Injury, Concussion, Head Trauma, Migraines Psychiatric History: Reports: Anxiety, Depression, Psych Hospitalization(s), PTSD, Suicide Attempt, Suicidal Ideation Other Psychiatric History: PTSD childhood trauma Endocrine/Metabolic History: Reports: Obesity/BMI 30+ Dermatologic History: Reports: Other (See Below) Other Dermatologic History: tattoos - Infectious Disease History Infectious Disease History: Reports: Chicken Pox, Measles, Mumps - Past Surgical History Head Surgeries/Procedures: Reports: None HEENT Surgical History: Reports: Oral Surgery Cardiovascular Surgical History: Reports: None Respiratory Surgical History: Reports: None GI Surgical History: Reports: Cholecystectomy, Colonoscopy, EGD Male Surgical History: Reports: Kidney Stone Extraction, Renal Calculus, Other (See Below) Other Male Surgeries/Procedures: stents Endocrine Surgical History: Reports: None Neurological Surgical History: Reports: None Musculoskeletal Surgical History: Reports: Other (See Below) Other Musculoskeletal Surgeries/Procedures:: partial amputation l ring finger Dermatological Surgical History: Reports: None Social & Family History - Family History Family Medical History: No Pertinent Family History GI: Reports: Other (See Below) - Tobacco Use Tobacco Use Status *Q: Current Every Day Tobacco User Years of Tobacco use: 15 Packs/Tins Daily: 0.2 - Caffeine Use Caffeine Use: Reports: Coffee, Soda Other Caffeine Use: 16 oz coffee daily - Living Situation & Occupation Living situation: Reports: with Family (Lives in [facility] with his Immediate family.) Occupation: Employed ED ROS GENERAL - Review of Systems Review Of Systems: See Below Constitutional: Denies: Fever, Chills Respiratory: Reports: No Symptoms Cardiovascular: Reports: No Symptoms GI/Abdominal: Reports: No Symptoms : Reports: Pain (Testicular pain bilaterally) ED EXAM, RENAL/ - Physical Exam Exam: See Below Text/Narrative:: Examination of the testes I do appreciate some edema both testicles there is no change in tenderness with elevation of the testicles he is tender to even light touch circumcised male no drainage no ulcers noted no lymphadenopathy Exam Limited By: No Limitations General Appearance: Alert, WD/WN, No Apparent Distress Respiratory/Chest: No Respiratory Distress Course - Vital Signs Last Recorded V/S: Last Vital Signs Temp 97.3 F 07/08/20 14:36 Pulse 84 07/08/20 14:36 Resp 14 07/08/20 14:36 BP 134/91 H 07/08/20 14:36 Pulse Ox 96 07/08/20 14:36 - Orders/Labs/Meds Orders: Active Orders 24 hr Category Date Time Status Scrotum and Contents [US] Stat Exams 07/08/20 14:50 Ordered UA W/MICROSCOPIC [URIN] Urgent Lab 07/08/20 14:19 Ordered HYDROmorphone [Dilaudid] Med 07/08/20 15:57 Once 1 mg IM ONETIME ONE cefTRIAXone 1 GM,Lidocaine 1% 2.1 ML Med 07/08/20 15:57 Ordered cefTRIAXone [Rocephin] 1 gm Lidocaine 1% [Xylocaine-MPF 1%] 2.1 ml IM ONETIME Labs: Laboratory Tests 07/08/20 07/08/20 Range/Units 15:14 15:14 WBC 8.7 (4.5-11.0) K/uL RBC 4.89 (4.30-5.90) M/uL Hgb 14.6 (12.0-15.0) g/dL Hct 45.1 (40.0-54.0) % MCV 92 (80-98) fL MCH 30 (27-31) pg MCHC 32 (32-36) % Plt Count 292 (150-400) K/uL Neut % (Auto) 58 (36-66) % Lymph % (Auto) 32 (24-44) % [place] % (Auto) 7 H (2-6) % Eos % (Auto) 3 (2-4) % Baso % (Auto) 1 (0-1) % Sodium 136 L (140-148) mmol/L Potassium 4.1 (3.6-5.2) mmol/L Chloride 103 (100-108) mmol/L Carbon Dioxide 23 (21-32) mmol/L Anion Gap 14.1 H (5.0-14.0) mmol/L BUN 7 (7-18) mg/dL Creatinine 0.9 (0.8-1.3) mg/dL Est Cr Clr Drug Dosing 126.94 mL/min Estimated GFR (MDRD) > 60 (>60) Glucose 107 H (74-106) mg/dL Calcium 8.7 (8.5-10.1) mg/dL Meds: Medications Discontinued Medications Generic Name Dose Route Start Last Admin Trade Name Rehan PRN Reason Stop Dose Admin Ketorolac Tromethamine 60 mg 07/08/20 14:54 07/08/20 14:59 Toradol IM 07/08/20 14:55 60 mg ONETIME ONE Administration Departure - Departure Time of Disposition: 15:59 Disposition: Home, Self-Care 01 Condition: Fair Clinical Impression: Epididymitis - Discharge Information Instructions: Epididymitis Referrals: Christina Carl MD [Primary Care Provider] - Forms: ED Department Discharge Additional Instructions: Please contact your primary care in the morning for completion of treatment for epididymitis Sepsis Event Note (ED) - Evaluation Sepsis Screening Result: No Definite Risk - Focused Exam Vital Signs: Vital Signs Temp Pulse Resp BP Pulse Ox 07/08/20 14:36 97.3 F 84 14 134/91 H 96 - My Orders Last 24 Hours: My Active Orders 07/08/20 14:19 UA W/MICROSCOPIC [URIN] Urgent 07/08/20 14:50 Scrotum and Contents [US] Stat 07/08/20 15:57 HYDROmorphone [Dilaudid] 1 mg IM ONETIME ONE cefTRIAXone 1 GM,Lidocaine 1% 2.1 ML cefTRIAXone [Rocephin] 1 gm Lidocaine 1% [Xylocaine-MPF 1%] 2.1 ml IM ONETIME - Assessment/Plan Last 24 Hours: My Active Orders 07/08/20 14:19 UA W/MICROSCOPIC [URIN] Urgent 07/08/20 14:50 Scrotum and Contents [US] Stat 07/08/20 15:57 HYDROmorphone [Dilaudid] 1 mg IM ONETIME ONE cefTRIAXone 1 GM,Lidocaine 1% 2.1 ML cefTRIAXone [Rocephin] 1 gm Lidocaine 1% [Xylocaine-MPF 1%] 2.1 ml IM ONETIME Plan: Assessment Acuity = acute Site and laterality = epididymitis Etiology = unknown Manifestations = none Location of injury = Home Lab values = CBC BMP unremarkable ultrasound consistent with epididymitis Plan Because he is restricted I cannot provide any medications for him other than treatment with in the emergency department he is given Rocephin 1 g IM as well as 1 mg Dilaudid he will contact his primary care provider in the morning for completion of treatment This note was dictated using [employer] voice recognition software please call with any questions on syntax or grammar.
[2020-07-08] MEDS ORDERED: HYDROmorphone 1 MG/ML Syringe IM ONE (15:57)
[2020-07-08] MEDS ORDERED: cefTRIAXone 1 GM, Lidocaine 1% 2.1 ML IM ONE ×2 (15:57)
--- NOTE | 2020-07-09 12:12 | US ---
Scrotum and Contents CLINICAL HISTORY: Pain and swelling FINDINGS: Doppler spectra shows normal flow to both testes. The right testicle measures 4.8 x 3.5 x 3.2 cm. The right epididymis is enlarged measuring 1.8 cm in length there is increased flow. The left testicle measures 4.3 x 2.7 x 3.5 cm. The left epididymis has a normal appearance. There are no masses or evidence for varicocele. No significant fluid collections identified. IMPRESSION: Enlarged and hyperemic right epididymis most suggestive of epididymitis
== END 2020-07-08 16:19 | disposition home or self-care (01) ==
LOC: JP.ED 14:15
DX: N45.1 Epididymitis (principal); I10 Essential (primary) hypertension; F41.9 Anxiety disorder, unspecified; F32.9 Major depressive disorder, single episode, unspecified; E66.9 Obesity, unspecified; Z68.33 Body mass index [BMI] 33.0-33.9, adult; Z91.041 Radiographic dye allergy status; Z88.5 Allergy status to narcotic agent; Z79.899 Other long term (current) drug therapy
CPT/HCPCS: 36415; 76870; 80048; 85025; 96372; 99284; J0696; J1170; J1885; J2001

== ENCOUNTER 2020-09-23 09:53 | Emergency (ER) | payer MEDICAID ==
--- NOTE | 2020-09-23 10:21 | EDM.PDOC ---
ED HPI GENERAL MEDICAL PROBLEM - General Chief Complaint: Head Injury Stated Complaint: FELL AND HIT HEAD, LOST CONSCIOUSNESS Time Seen by Provider: 09/23/20 10:05 Source of Information: Reports: Patient History Limitations: Reports: No Limitations - History of Present Illness INITIAL COMMENTS - FREE TEXT/NARRATIVE: 35-year-old male that fell 2 hours ago striking the right side of his head on an end table at home. He said his "leg gave out" and he fell. He was knocked out for an unknown period of time, when he came to he is seeing double vision, is dizzy, nauseated and has a persistent headache from the right side of his head radiating to the left. He ambulates without problems, denies any peripheral weakness. Onset: Sudden Duration: Hour(s): (2 hours ago) Location: Reports: Head (Right side) Associated Symptoms: Reports: Malaise, Nausea/Vomiting, Other (Dizziness, double vision). Denies: Confusion, Chest Pain Headache Pain Score (Numeric/FACES): 8 - Related Data Allergies Allergy/AdvReac Type Severity Reaction Status Date / Time Iodinated Contrast Media Allergy Severe Anaphylactic Verified 09/23/20 10:01 Shock meperidine [From Demerol] Allergy Hives Verified 09/23/20 10:01 Home Meds: Home Meds Propranolol HCl 20 mg PO BID 08/21/17 [History] risperiDONE 3 mg PO BEDTIME 08/21/17 [History] Acetaminophen [Tylenol Arthritis Pain] 650 mg PO ASDIRECTED PRN 10/13/17 [History] Dextroamphetamine/Amphetamine [Adderall 20 mg Tablet] 30 mg PO DAILY 12/20/17 [History] DULoxetine HCl [Duloxetine HCl] 120 mg PO DAILY 01/02/19 [History] Propranolol [Inderal LA 24 Hr] 60 mg PO BEDTIME 07/01/19 [History] Eszopiclone [Lunesta] 3 mg PO BEDTIME 02/03/20 [History] LORazepam [Ativan] 1 mg PO DAILY 02/03/20 [History] Past Medical History HEENT History: Reports: Impaired Vision Other HEENT History: wears glasses Cardiovascular History: Reports: Arrhythmia, Hypertension, Other (See Below) Other Cardiovascular History: inverted T waves Respiratory History: Reports: Pneumothorax, SOB Gastrointestinal History: Reports: Cholelithiasis, Chronic Diarrhea, GI Bleed, Other (See Below) Other Gastrointestinal History: ulcers Genitourinary History: Reports: Renal Calculus, Other (See Below) Other Genitourinary History: right kidney reconstruction Musculoskeletal History: Reports: Back Pain, Chronic, Neck Pain, Chronic, Other (See Below) Other Musculoskeletal History: crush injury left hand, boxer fracture right hand Neurological History: Reports: Brain Injury, Concussion, Head Trauma, Migraines Psychiatric History: Reports: Anxiety, Depression, Psych Hospitalization(s), PTSD, Suicide Attempt, Suicidal Ideation Other Psychiatric History: PTSD childhood trauma Endocrine/Metabolic History: Reports: Obesity/BMI 30+ Dermatologic History: Reports: Other (See Below) Other Dermatologic History: tattoos - Infectious Disease History Infectious Disease History: Reports: Chicken Pox, Measles, Mumps - Past Surgical History Head Surgeries/Procedures: Reports: None HEENT Surgical History: Reports: Oral Surgery Cardiovascular Surgical History: Reports: None Respiratory Surgical History: Reports: None GI Surgical History: Reports: Cholecystectomy, Colonoscopy, EGD Male Surgical History: Reports: Kidney Stone Extraction, Renal Calculus, Other (See Below) Other Male Surgeries/Procedures: stents Endocrine Surgical History: Reports: None Neurological Surgical History: Reports: None Musculoskeletal Surgical History: Reports: Other (See Below) Other Musculoskeletal Surgeries/Procedures:: partial amputation l ring finger Dermatological Surgical History: Reports: None Social & Family History - Family History Family Medical History: No Pertinent Family History GI: Reports: Other (See Below) - Tobacco Use Tobacco Use Status *Q: Current Every Day Tobacco User Years of Tobacco use: 25 Packs/Tins Daily: 0.3 - Caffeine Use Caffeine Use: Reports: Coffee, Soda Other Caffeine Use: 16 oz coffee daily - Recreational Drug Use Recreational Drug Use: No - Living Situation & Occupation Living situation: Reports: with Family (Lives in [facility] with his Immediate family.) Occupation: Employed ED ROS GENERAL - Review of Systems Review Of Systems: See Below Constitutional: Reports: Malaise. Denies: Fever, Chills HEENT: Reports: Vision Change Respiratory: Denies: Shortness of Breath Cardiovascular: Denies: Chest Pain GI/Abdominal: Reports: Nausea. Denies: Abdominal Pain, Vomiting Musculoskeletal: Denies: Neck Pain Skin: Reports: No Symptoms Neurological: Reports: Dizziness, Headache Psychiatric: Reports: No Symptoms ED EXAM, HEAD INJURY - Physical Exam Exam: See Below Exam Limited By: No Limitations General Appearance: Alert, No Apparent Distress Head: Atraumatic (I do not see any objective evidence of any injury to his scalp, no abrasion or contusion) Eyes: Bilateral Eye: EOMI, Normal Inspection Neck: Non-Tender Respiratory: No Respiratory Distress Neurologic: No Motor/Sensory Deficits, Normal Mood/Affect, Oriented x 3, Other (Romberg is negative, no pronator drift) Skin: Normal Color - Abimael Coma Score Best Eye Response (Abimael): (4) Open Spontaneously Best Verbal Response ([place]): (5) Oriented Best Motor Response (Abimael): (6) Obeys Commands Course - Vital Signs Last Recorded V/S: Last Vital Signs Temp 97.5 F 09/23/20 10:03 Pulse 108 H 09/23/20 10:55 Resp 18 09/23/20 10:03 BP 159/97 H 09/23/20 10:55 Pulse Ox 99 09/23/20 10:03 - Orders/Labs/Meds Meds: Medications Discontinued Medications Generic Name Dose Route Start Last Admin Trade Name Rehan PRN Reason Stop Dose Admin Ibuprofen 800 mg 09/23/20 10:43 09/23/20 10:54 Ibuprofen 800 Mg Tab PO 09/23/20 10:44 800 mg ONETIME ONE Administration - Re-Assessments/Exams Free Text/Narrative Re-Assessment/Exam: 09/23/20 10:20 Explain to the patient that I see no objective reason for CT scan but he became somewhat upset that I was not taking seriously, claims he still has double vision and nausea and the pain is worsening. CT the head without contrast was ordered. 09/23/20 10:42 CT was normal, patient was insisting on something for pain. I offered him Tylenol but he said he "already tried that", I offered him ibuprofen and he said "we can try". He was given 800 mg of oral ibuprofen will be discharged and encouraged to continue with anti-inflammatories as needed. Departure - Departure Time of Disposition: 11:01 Disposition: Home, Self-Care 01 Clinical Impression: Closed head injury Qualifiers: Encounter type: initial encounter Qualified Code(s): S09.90XA - Unspecified injury of head, initial encounter Concussion Qualifiers: Encounter type: initial encounter Loss of consciousness presence/duration: with LOC of unspecified duration Qualified Code(s): S06.0X9A - Concussion with loss of consciousness of unspecified duration, initial encounter - Discharge Information Instructions: Concussion, Adult, [id number] Referrals: Christina Carl MD [Primary Care Provider] - Forms: ED Department Discharge Care Plan Goals: Rest today, increase activity as tolerated and repeat ibuprofen as needed for headache. Recheck in 2 to 3 days if not improving satisfactorily, or return sooner if worsening such as persistent vomiting or asymmetric weakness. Sepsis Event Note (ED) - Evaluation Sepsis Screening Result: No Definite Risk - Focused Exam Vital Signs: Vital Signs Temp Pulse Resp BP Pulse Ox 09/23/20 10:55 108 H 159/97 H 09/23/20 10:03 97.5 F 111 H 18 184/112 H 99
[2020-09-23] MEDS ORDERED: Ibuprofen 800 MG Tab PO ONE (10:43)
--- NOTE | 2020-09-23 11:03 | CRLCT ---
INDICATION: Fall, head injury. TECHNIQUE: CT head without contrast. COMPARISON: None. FINDINGS: CSF spaces: Within normal limits for age. Brain parenchyma and extra-axial spaces: The nolasco-white differentiation is normal. No sign of mass, hemorrhage, or midline shift. No extra-axial fluid collection. Skull base and calvarium: The visualized paranasal sinuses and mastoid air cells demonstrate no acute or significant findings. The visualized orbits are grossly unremarkable. No skull fractures. IMPRESSION: Unremarkable noncontrast head CT. Dictated by Justin Chang MD @ 09/23/2020 11:03:12 AM Please note that all CT scans at this facility use dose modulation, iterative reconstruction, and/or weight-based dosing when appropriate to reduce radiation dose to as low as reasonably achievable. Dictated by: Justin Chang MD @ 09/23/2020 11:03:17 (Electronically Signed)
== END 2020-09-23 11:01 | disposition home or self-care (01) ==
LOC: JP.ED 09:53
DX: S06.0X9A Concussion with loss of consciousness of unspecified duration, initial encounter (principal); I10 Essential (primary) hypertension; Z72.0 Tobacco use; E66.9 Obesity, unspecified; Z79.899 Other long term (current) drug therapy; Z68.33 Body mass index [BMI] 33.0-33.9, adult; Z91.041 Radiographic dye allergy status; Z88.5 Allergy status to narcotic agent; W22.8XXA Striking against or struck by other objects, initial encounter; Y92.009 Unspecified place in unspecified non-institutional (private) residence as the place of occurrence of the external cause
CPT/HCPCS: 70450; 99284; A9270; 99282

== ENCOUNTER 2020-09-24 16:01 | Emergency (ER) | payer MEDICAID ==
[2020-09-24] MEDS ORDERED: Ketorolac 60 MG/2 ML SDV IM ONE (16:53)
--- NOTE | 2020-09-24 17:01 | EDM.PDOC ---
ED HPI GENERAL MEDICAL PROBLEM - General Chief Complaint: Head Injury Stated Complaint: SEEN YESTURDAY HEADACH, BLURRED VISION IS GETTING Time Seen by Provider: 09/24/20 16:45 Source of Information: Reports: Patient History Limitations: Reports: No Limitations - History of Present Illness INITIAL COMMENTS - FREE TEXT/NARRATIVE: 35-year-old male who was seen yesterday morning with a head injury, CT scan was negative. He claimed that he fell and hit the corner of an end table, had double vision and a horrible headache. Neurologically he was intact. CT was negative and he was given information on concussion symptoms. Today his vision is still blurry, he has a headache, he called his primary provider who told him to call the ambulance and get back in here. He feels unsteady when he walks, he took a hydrocodone from an old prescription and its not helping. He wants me to fix him. Onset: Sudden (Fell 36 hours ago) Location: Reports: Head (Head injury) Associated Symptoms: Reports: Other (Blurred vision, dizzy and unsteady). Denies: Nausea/Vomiting Headache Pain Score (Numeric/FACES): 9 - Related Data Allergies Allergy/AdvReac Type Severity Reaction Status Date / Time Iodinated Contrast Media Allergy Severe Anaphylactic Verified 09/24/20 16:22 Shock meperidine [From Demerol] Allergy Hives Verified 09/24/20 16:22 Home Meds: Home Meds Propranolol HCl 20 mg PO BID 08/21/17 [History] risperiDONE 3 mg PO BEDTIME 08/21/17 [History] Acetaminophen [Tylenol Arthritis Pain] 650 mg PO ASDIRECTED PRN 10/13/17 [History] Dextroamphetamine/Amphetamine [Adderall 20 mg Tablet] 30 mg PO DAILY 12/20/17 [History] DULoxetine HCl [Duloxetine HCl] 120 mg PO DAILY 01/02/19 [History] Propranolol [Inderal LA 24 Hr] 60 mg PO BEDTIME 07/01/19 [History] Eszopiclone [Lunesta] 3 mg PO BEDTIME 02/03/20 [History] LORazepam [Ativan] 1 mg PO DAILY PRN 02/03/20 [History] Past Medical History HEENT History: Reports: Impaired Vision Other HEENT History: wears glasses Cardiovascular History: Reports: Arrhythmia, Hypertension, Other (See Below) Other Cardiovascular History: inverted T waves Respiratory History: Reports: Pneumothorax, SOB Gastrointestinal History: Reports: Cholelithiasis, Chronic Diarrhea, GI Bleed, Other (See Below) Other Gastrointestinal History: ulcers Genitourinary History: Reports: Renal Calculus, Other (See Below) Other Genitourinary History: right kidney reconstruction Musculoskeletal History: Reports: Back Pain, Chronic, Neck Pain, Chronic, Other (See Below) Other Musculoskeletal History: crush injury left hand, boxer fracture right hand Neurological History: Reports: Brain Injury, Concussion, Head Trauma, Migraines Psychiatric History: Reports: Anxiety, Depression, Psych Hospitalization(s), PTSD, Suicide Attempt, Suicidal Ideation Other Psychiatric History: PTSD childhood trauma Endocrine/Metabolic History: Reports: Obesity/BMI 30+ Dermatologic History: Reports: Other (See Below) Other Dermatologic History: tattoos - Infectious Disease History Infectious Disease History: Reports: Chicken Pox, Measles, Mumps - Past Surgical History Head Surgeries/Procedures: Reports: None HEENT Surgical History: Reports: Oral Surgery Cardiovascular Surgical History: Reports: None Respiratory Surgical History: Reports: None GI Surgical History: Reports: Cholecystectomy, Colonoscopy, EGD Male Surgical History: Reports: Kidney Stone Extraction, Renal Calculus, Other (See Below) Other Male Surgeries/Procedures: stents Endocrine Surgical History: Reports: None Neurological Surgical History: Reports: None Musculoskeletal Surgical History: Reports: Other (See Below) Other Musculoskeletal Surgeries/Procedures:: partial amputation l ring finger Dermatological Surgical History: Reports: None Social & Family History - Family History Family Medical History: No Pertinent Family History GI: Reports: Other (See Below) - Tobacco Use Tobacco Use Status *Q: Current Every Day Tobacco User Years of Tobacco use: 21 Packs/Tins Daily: 0.2 Used Tobacco, but Quit: No Second Hand Smoke Exposure: Yes - Caffeine Use Caffeine Use: Reports: Coffee, Energy Drinks, Soda Other Caffeine Use: 16 oz coffee daily - Alcohol Use Days Per Week of Alcohol Use: 0 - Recreational Drug Use Recreational Drug Use: No - Living Situation & Occupation Living situation: Reports: with Family (Lives in [facility] with his Immediate family.) Occupation: Employed ED ROS GENERAL - Review of Systems Review Of Systems: See Below Constitutional: Reports: Malaise. Denies: Fever, Chills HEENT: Reports: Vision Change Respiratory: Denies: Shortness of Breath Cardiovascular: Denies: Chest Pain GI/Abdominal: Denies: Abdominal Pain, Vomiting Skin: Denies: Bruising Neurological: Reports: Dizziness, Headache, Gait Disturbance Psychiatric: Reports: Anxiety ED EXAM, HEAD INJURY - Physical Exam Exam: See Below Exam Limited By: No Limitations General Appearance: Alert, No Apparent Distress Head: Atraumatic (His head still shows no sign of trauma, no bruising, hematoma or abrasion), Other (Still showing no objective evidence of head injury, no bruise or abrasion) Neck: Non-Tender Respiratory: No Respiratory Distress, Lungs Clear Cardiovascular: Regular Rate, Rhythm Neurologic: No Motor/Sensory Deficits, Alert, Normal Mood/Affect, Oriented x 3 Skin: Normal Color - Abimael Coma Score Best Eye Response ([place]): (4) Open Spontaneously Best Verbal Response ([place]): (5) Oriented Best Motor Response ([place]): (6) Obeys Commands Course - Vital Signs Last Recorded V/S: Last Vital Signs Temp 98.0 F 09/24/20 16:28 Pulse 91 09/24/20 16:28 Resp 16 09/24/20 16:28 BP 154/104 H 09/24/20 16:28 Pulse Ox 95 09/24/20 16:28 - Orders/Labs/Meds Meds: Medications Discontinued Medications Generic Name Dose Route Start Last Admin Trade Name Rehan PRKaley Reason Stop Dose Admin Ketorolac Tromethamine 60 mg 09/24/20 16:53 09/24/20 17:02 Ketorolac 60 Mg/2 Ml Sdv IM 09/24/20 16:54 60 mg ONETIME ONE Administration Ketorolac Tromethamine 10 mg 09/24/20 17:56 09/24/20 18:18 Ketorolac 10 Mg Tab PO 09/24/20 17:57 10 mg ONETIME ONE Administration - Re-Assessments/Exams Free Text/Narrative Re-Assessment/Exam: 09/24/20 18:45 Patient was given 60 mg of IM Toradol and check 30 minutes later. I tried the best I could to explain to him that postconcussion symptoms take time. No reason for repeat CT scan, I gave him an additional oral dose of Toradol to take tomorrow morning. Departure - Departure Time of Disposition: 18:31 Disposition: Home, Self-Care 01 Clinical Impression: Concussion injury of brain - Discharge Information Instructions: Post-Concussion Syndrome, [id number] Referrals: Christina Carl MD [Primary Care Provider] - Forms: ED Department Discharge Care Plan Goals: Take the extra dose of Toradol tomorrow morning, if it is helpful contact your primary doctor for more until symptoms improved. Continue your regular medications. Sepsis Event Note (ED) - Evaluation Sepsis Screening Result: No Definite Risk - Focused Exam Vital Signs: Vital Signs Temp Pulse Resp BP Pulse Ox 09/24/20 16:28 98.0 F 91 16 154/104 H 95 09/24/20 16:19 98.0 F 91 16 154/104 H 95
[2020-09-24] MEDS ORDERED: Ketorolac 10 MG Tab PO ONE (17:56)
== END 2020-09-24 18:31 | disposition home or self-care (01) ==
LOC: JP.ED 16:01
DX: S06.0X9A Concussion with loss of consciousness of unspecified duration, initial encounter (principal); I10 Essential (primary) hypertension; E66.9 Obesity, unspecified; Z68.33 Body mass index [BMI] 33.0-33.9, adult; Z72.0 Tobacco use; Z79.899 Other long term (current) drug therapy; Z91.041 Radiographic dye allergy status; Z88.8 Allergy status to other drugs, medicaments and biological substances; W22.8XXA Striking against or struck by other objects, initial encounter
CPT/HCPCS: 96372; 99283; A9270; J1885

== ENCOUNTER 2021-01-19 13:40 | Emergency (ER) | payer MEDICAID ==
--- NOTE | 2021-01-19 14:29 | EDM.PDOC ---
ED HPI GENERAL MEDICAL PROBLEM - General Chief Complaint: Chest Pain Stated Complaint: CHEST PAIN, NUMBNESS LT ARM,SOB Time Seen by Provider: 01/19/21 14:00 Source of Information: Reports: Patient History Limitations: Reports: No Limitations - History of Present Illness INITIAL COMMENTS - FREE TEXT/NARRATIVE: 35-year-old male developed chest tightness, pressure, radiation into his left shoulder, numbness of his arm and then syncope. His discomfort was present when he woke up this morning, he went to work and thought he could tough it out but it was worsening so he walked outside and then fainted. He then decided to come in to get checked. He is still having "a little bit" of symptoms, including shortness of breath and chest pressure. Denies hitting his head. No fevers or chills. He did not get the Covid vaccine. An EKG was done on arrival that showed no acute ST elevation or depression. Vitals are stable. Onset: Unknown/Unsure (Woke up with symptoms) Associated Symptoms: Reports: Chest Pain, Diaphoresis, Malaise, Shortness of Breath, Syncope, Weakness. Denies: Confusion, Fever/Chills, Headaches Chest Pain Score (Numeric/FACES): 7 - Related Data Allergies Allergy/AdvReac Type Severity Reaction Status Date / Time Iodinated Contrast Media Allergy Severe Anaphylactic Verified 01/19/21 13:48 Shock meperidine [From Demerol] Allergy Hives Verified 01/19/21 13:48 Home Meds: Home Meds Propranolol HCl 20 mg PO BID 08/21/17 [History] risperiDONE 3 mg PO BEDTIME 08/21/17 [History] Acetaminophen [Tylenol Arthritis Pain] 650 mg PO ASDIRECTED PRN 10/13/17 [History] Dextroamphetamine/Amphetamine [Adderall 20 mg Tablet] 30 mg PO DAILY 12/20/17 [History] DULoxetine HCl [Duloxetine HCl] 120 mg PO DAILY 01/02/19 [History] Propranolol [Inderal LA 24 Hr] 60 mg PO BEDTIME 07/01/19 [History] Eszopiclone [Lunesta] 3 mg PO BEDTIME 02/03/20 [History] LORazepam [Ativan] 1 mg PO DAILY PRN 02/03/20 [History] Past Medical History HEENT History: Reports: Impaired Vision Other HEENT History: wears glasses Cardiovascular History: Reports: Arrhythmia, Hypertension, Other (See Below) Other Cardiovascular History: inverted T waves Respiratory History: Reports: Pneumothorax, SOB Gastrointestinal History: Reports: Cholelithiasis, Chronic Diarrhea, GI Bleed, Other (See Below) Other Gastrointestinal History: ulcers Genitourinary History: Reports: Renal Calculus, Other (See Below) Other Genitourinary History: right kidney reconstruction Musculoskeletal History: Reports: Back Pain, Chronic, Neck Pain, Chronic, Other (See Below) Other Musculoskeletal History: crush injury left hand, boxer fracture right hand Neurological History: Reports: Brain Injury, Concussion, Head Trauma, Migraines Psychiatric History: Reports: Anxiety, Depression, Psych Hospitalization(s), PTSD, Suicide Attempt, Suicidal Ideation Other Psychiatric History: PTSD childhood trauma Endocrine/Metabolic History: Reports: Obesity/BMI 30+ Dermatologic History: Reports: Other (See Below) Other Dermatologic History: tattoos - Infectious Disease History Infectious Disease History: Reports: Chicken Pox, Measles, Mumps - Past Surgical History Head Surgeries/Procedures: Reports: None HEENT Surgical History: Reports: Oral Surgery GI Surgical History: Reports: Cholecystectomy, Colonoscopy, EGD Male Surgical History: Reports: Kidney Stone Extraction, Renal Calculus, Other (See Below) Other Male Surgeries/Procedures: stents Endocrine Surgical History: Reports: None Neurological Surgical History: Reports: None Musculoskeletal Surgical History: Reports: Other (See Below) Other Musculoskeletal Surgeries/Procedures:: partial amputation l ring finger Dermatological Surgical History: Reports: None Social & Family History - Family History Family Medical History: No Pertinent Family History GI: Reports: Other (See Below) - Tobacco Use Tobacco Use Status *Q: Light Tobacco User Years of Tobacco use: 20 Packs/Tins Daily: 0.5 - Caffeine Use Caffeine Use: Reports: Coffee Other Caffeine Use: 16 oz coffee daily - Recreational Drug Use Recreational Drug Use: No - Living Situation & Occupation Living situation: Reports: with Family (Lives in [facility] with his Immediate family.) Occupation: Employed ED ROS GENERAL - Review of Systems Review Of Systems: See Below Constitutional: Reports: Malaise. Denies: Fever, Chills HEENT: Reports: Vision Change (Temporary tunnel vision) Respiratory: Reports: Shortness of Breath Cardiovascular: Reports: Chest Pain, Syncope. Denies: Palpitations Endocrine: Reports: Fatigue GI/Abdominal: Denies: Abdominal Pain, Diarrhea, Nausea, Vomiting : Reports: No Symptoms Skin: Reports: Diaphoresis Neurological: Reports: No Symptoms, Dizziness, Syncope ED EXAM, GENERAL - Physical Exam Exam: See Below Exam Limited By: No Limitations General Appearance: Alert, No Apparent Distress Eye Exam: Bilateral Eye: Normal Inspection Head: Atraumatic Respiratory/Chest: No Respiratory Distress, Lungs Clear Cardiovascular: Regular Rate, Rhythm. No: Diastolic Murmur, Extra Beats GI/Abdominal: Soft, Non-Tender Extremities: Normal Inspection Neurological: Alert, Oriented, No Motor/Sensory Deficits Psychiatric: Normal Affect, Normal Mood Skin Exam: Warm, Dry #1 Interpretation EKG Date: 01/19/21 Time: 13:40 Rhythm: NSR QRS: Normal ST-T: Normal Course - Vital Signs Last Recorded V/S: Last Vital Signs Temp 98 F 01/19/21 13:47 Pulse 92 01/19/21 15:23 Resp 21 H 01/19/21 15:23 BP 116/51 L 01/19/21 15:23 Pulse Ox 94 L 01/19/21 15:23 - Orders/Labs/Meds Orders: Active Orders 24 hr Category Date Time Status Isolation [COMM] Stat Oth 01/19/21 14:24 Ordered EKG 12 Lead [EK] Routine Ther 01/19/21 13:50 Ordered Labs: Laboratory Tests 01/19/21 01/19/21 01/19/21 Range/Units 13:50 13:50 13:50 WBC 8.5 (4.5-11.0) K/uL RBC 4.11 L (4.30-5.90) M/uL Hgb 12.6 D (12.0-15.0) g/dL Hct 37.6 L (40.0-54.0) % MCV 92 (80-98) fL MCH 31 (27-31) pg MCHC 34 (32-36) % Plt Count 239 (150-400) K/uL Neut % (Auto) 66.3 H (36-66) % Lymph % (Auto) 24.0 (24-44) % [place] % (Auto) 7.5 H (2-6) % Eos % (Auto) 1.8 L (2-4) % Baso % (Auto) 0.4 (0-1) % Sodium 143 (140-148) mmol/L Potassium 3.5 L (3.6-5.2) mmol/L Chloride 107 (100-108) mmol/L Carbon Dioxide 26 (21-32) mmol/L Anion Gap 13.5 (5.0-14.0) mmol/L BUN 8 (7-18) mg/dL Creatinine 0.9 (0.8-1.3) mg/dL Est Cr Clr Drug Dosing 126.94 mL/min Estimated GFR (MDRD) > 60 (>60) Glucose 105 (74-106) mg/dL Calcium 8.6 (8.5-10.1) mg/dL Total Bilirubin 0.3 (0.2-1.0) mg/dL AST 42 H (15-37) U/L ALT 95 H (12-78) U/L Alkaline Phosphatase 111 (46-116) U/L Troponin I < 0.017 (0.000-0.056) ng/mL Total Protein 6.4 (6.4-8.2) g/dL Albumin 3.6 (3.4-5.0) g/dL Globulin 2.8 (2.3-3.5) g/dL Albumin/Globulin Ratio 1.3 (1.2-2.2) SARS CoV-2 RNA Rapid TAMIA 01/19/21 Range/Units 15:56 WBC (4.5-11.0) K/uL RBC (4.30-5.90) M/uL Hgb (12.0-15.0) g/dL Hct (40.0-54.0) % MCV (80-98) fL MCH (27-31) pg MCHC (32-36) % Plt Count (150-400) K/uL Neut % (Auto) (36-66) % Lymph % (Auto) (24-44) % [place] % (Auto) (2-6) % Eos % (Auto) (2-4) % Baso % (Auto) (0-1) % Sodium (140-148) mmol/L Potassium (3.6-5.2) mmol/L Chloride (100-108) mmol/L Carbon Dioxide (21-32) mmol/L Anion Gap (5.0-14.0) mmol/L BUN (7-18) mg/dL Creatinine (0.8-1.3) mg/dL Est Cr Clr Drug Dosing mL/min Estimated GFR (MDRD) (>60) Glucose (74-106) mg/dL Calcium (8.5-10.1) mg/dL Total Bilirubin (0.2-1.0) mg/dL AST (15-37) U/L ALT (12-78) U/L Alkaline Phosphatase (46-116) U/L Troponin I (0.000-0.056) ng/mL Total Protein (6.4-8.2) g/dL Albumin (3.4-5.0) g/dL Globulin (2.3-3.5) g/dL Albumin/Globulin Ratio (1.2-2.2) SARS CoV-2 RNA Rapid TAMIA Negative - Re-Assessments/Exams Free Text/Narrative Re-Assessment/Exam: 01/19/21 14:28 EKG was reassuring, CBC CMP and troponin were obtained. Patient was kept on cardiac monitoring and was stable. 4 Plex Covid viral study was obtained. 01/19/21 15:38 Patient remained stable and in sinus rhythm while in the emergency room. CBC CMP troponin were reassuring, troponin was 0. Still waiting for the viral study results. 01/19/21 16:20 Covid was negative, patient remained asymptomatic while in the emergency room. He will be discharged with a syncopal episode diagnosis. Departure - Departure Time of Disposition: 16:35 Disposition: Home, Self-Care 01 Clinical Impression: Atypical chest pain Syncope Qualifiers: Syncope type: unspecified Qualified Code(s): R55 - Syncope and collapse - Discharge Information Instructions: Nonspecific Chest Pain, Adult, [id number] Referrals: PCP,None [Primary Care Provider] - Forms: ED Department Discharge Care Plan Goals: Continue your current medications, increase activity as tolerated and consider following up with your primary provider to discuss a stress test in the near future. Sepsis Event Note (ED) - Evaluation Sepsis Screening Result: No Definite Risk - Focused Exam Vital Signs: Vital Signs Temp Pulse Resp BP Pulse Ox 01/19/21 15:23 92 21 H 116/51 L 94 L 01/19/21 14:41 92 15 120/55 L 93 L 01/19/21 14:12 95 18 116/57 L 94 L 01/19/21 13:47 98 F 98 12 138/78 98 01/19/21 13:41 97 11 L 138/78 96 - My Orders Last 24 Hours: My Active Orders 01/19/21 13:50 EKG 12 Lead [EK] Routine 01/19/21 14:24 Isolation [COMM] Stat - Assessment/Plan Last 24 Hours: My Active Orders 01/19/21 13:50 EKG 12 Lead [EK] Routine 01/19/21 14:24 Isolation [COMM] Stat
== END 2021-01-19 16:35 | disposition home or self-care (01) ==
LOC: JP.ED 13:40
DX: R07.89 Other chest pain (principal); R55 Syncope and collapse; I10 Essential (primary) hypertension; E66.9 Obesity, unspecified; Z68.29 Body mass index [BMI] 29.0-29.9, adult; Z72.0 Tobacco use; Z79.899 Other long term (current) drug therapy; Z88.8 Allergy status to other drugs, medicaments and biological substances; Z91.041 Radiographic dye allergy status; Z20.822 Contact with and (suspected) exposure to COVID-19
CPT/HCPCS: 36415; 80053; 84484; 85025; 93005; 99285-25; U0002

== ENCOUNTER 2021-02-20 16:17 | Emergency (ER) | payer MEDICAID ==
--- NOTE | 2021-02-20 16:51 | EDM.PDOC ---
ED HPI GENERAL MEDICAL PROBLEM - General Chief Complaint: Neurological Problem Stated Complaint: DIZZY,CONFUSION,BLURRY VISION Time Seen by Provider: 02/20/21 16:40 Source of Information: Reports: Patient History Limitations: Reports: No Limitations - History of Present Illness INITIAL COMMENTS - FREE TEXT/NARRATIVE: 35-year-old male was at work today, suddenly became lightheaded and felt confused, blurry vision so laid down for a while and it did not seem to be getting better so he went home. After the symptoms persisted he called the triage nurse who told him to call the ambulance. However these are symptoms that he has come in before with many times, he does not have a fever, does not have shortness of breath or cough, his symptoms are very subjective and nonspecific. Onset: Sudden (Started fairly suddenly 3 hours ago) Bilateral Lower Abdomen Pain Score (Numeric/FACES): 6 - Related Data Allergies Allergy/AdvReac Type Severity Reaction Status Date / Time Iodinated Contrast Media Allergy Severe Anaphylactic Verified 01/19/21 13:48 Shock meperidine [From Demerol] Allergy Hives Verified 01/19/21 13:48 Home Meds: Home Meds Propranolol HCl 20 mg PO BID 08/21/17 [History] risperiDONE 3 mg PO BEDTIME 08/21/17 [History] Acetaminophen [Tylenol Arthritis Pain] 650 mg PO ASDIRECTED PRN 10/13/17 [History] DULoxetine HCl [Duloxetine HCl] 120 mg PO DAILY 01/02/19 [History] Propranolol [Inderal LA 24 Hr] 60 mg PO BEDTIME 07/01/19 [History] Eszopiclone [Lunesta] 3 mg PO BEDTIME 02/03/20 [History] LORazepam [Ativan] 1 mg PO DAILY PRN 02/03/20 [History] Varenicline Tartrate [Chantix] 1 mg PO BID 02/20/21 [History] Past Medical History HEENT History: Reports: Impaired Vision Other HEENT History: wears glasses Cardiovascular History: Reports: Arrhythmia, Hypertension, Other (See Below) Other Cardiovascular History: inverted T waves Respiratory History: Reports: Pneumothorax, SOB Gastrointestinal History: Reports: Cholelithiasis, Chronic Diarrhea, GI Bleed, Other (See Below) Other Gastrointestinal History: ulcers Genitourinary History: Reports: Renal Calculus, Other (See Below) Other Genitourinary History: right kidney reconstruction Musculoskeletal History: Reports: Back Pain, Chronic, Neck Pain, Chronic, Other (See Below) Other Musculoskeletal History: crush injury left hand, boxer fracture right hand Neurological History: Reports: Brain Injury, Concussion, Head Trauma, Migraines Psychiatric History: Reports: Anxiety, Depression, Psych Hospitalization(s), PTSD, Suicide Attempt, Suicidal Ideation Other Psychiatric History: PTSD childhood trauma Endocrine/Metabolic History: Reports: Obesity/BMI 30+ Dermatologic History: Reports: Other (See Below) Other Dermatologic History: tattoos - Infectious Disease History Infectious Disease History: Reports: Chicken Pox, Measles, Mumps - Past Surgical History Head Surgeries/Procedures: Reports: None HEENT Surgical History: Reports: Oral Surgery Cardiovascular Surgical History: Reports: None Respiratory Surgical History: Reports: None GI Surgical History: Reports: Cholecystectomy, Colonoscopy, EGD Male Surgical History: Reports: Kidney Stone Extraction, Renal Calculus, Other (See Below) Other Male Surgeries/Procedures: stents Endocrine Surgical History: Reports: None Neurological Surgical History: Reports: None Musculoskeletal Surgical History: Reports: Other (See Below) Other Musculoskeletal Surgeries/Procedures:: partial amputation l ring finger Dermatological Surgical History: Reports: None Social & Family History - Family History Family Medical History: No Pertinent Family History GI: Reports: Other (See Below) - Tobacco Use Tobacco Use Status *Q: Current Every Day Tobacco User Years of Tobacco use: 11 Packs/Tins Daily: 0.5 - Caffeine Use Caffeine Use: Reports: Coffee, Soda, Tea Other Caffeine Use: 16 oz coffee daily - Recreational Drug Use Recreational Drug Use: No - Living Situation & Occupation Living situation: Reports: with Family (Lives in [facility] with his Immediate family.) Occupation: Employed ED ROS GENERAL - Review of Systems Review Of Systems: See Below Constitutional: Reports: Malaise. Denies: Fever, Chills HEENT: Reports: Vision Change (Blurry vision, when I asked him if he had double vision he said "yes that too") Skin: Denies: Pallor, Diaphoresis Neurological: Reports: Headache (Mild intermittent headaches, none currently) Psychiatric: Reports: Anxiety ED EXAM, GENERAL - Physical Exam Exam: See Below Exam Limited By: No Limitations General Appearance: Alert, No Apparent Distress Eye Exam: Bilateral Eye: Normal Inspection (EOMs intact, pupils equal and reactive) Head: Atraumatic Neck: Supple, Non-Tender Respiratory/Chest: Lungs Clear Cardiovascular: Regular Rate, Rhythm Neurological: Alert, Oriented, No Motor/Sensory Deficits, Other (Romberg is negative, no pronator drift. Reflexes of the lower extremities are symmetric) Psychiatric: Flat Affect Skin Exam: Warm, Dry Course - Vital Signs Last Recorded V/S: Last Vital Signs Temp 96.8 F L 02/20/21 16:26 Pulse 97 02/20/21 16:26 Resp 16 02/20/21 16:26 BP 143/83 H 02/20/21 16:26 Pulse Ox 97 02/20/21 16:26 - Re-Assessments/Exams Free Text/Narrative Re-Assessment/Exam: 02/20/21 16:49 While the patient was being admitted by nursing, I reviewed his records and he has been in for these types of nonspecific symptoms numerous times over the past 5 years. He has had several CAT scans, tests, nothing has been found. I explained to him that this is likely vasovagal and will resolve with time if he just rests and maintains hydration, and he made a point that he has never been in for the symptoms before. I had to remind him that he has been in many times and I am not going to start another work-up with his vitals and physical exam normal. Departure - Departure Time of Disposition: 17:02 Disposition: Home, Self-Care 01 Clinical Impression: Syncope, near, Dizziness - Discharge Information Instructions: Dizziness, [id number] Referrals: Christina Carl MD [Primary Care Provider] - Forms: ED Department Discharge Care Plan Goals: Continue any current medications, rest today and concentrate on getting plenty of fluids. Try to resume your normal activity tomorrow, consider rechecking if not improving satisfactorily. Sepsis Event Note (ED) - Evaluation Sepsis Screening Result: No Definite Risk
== END 2021-02-20 17:03 | disposition home or self-care (01) ==
LOC: JP.ED 16:17
DX: R55 Syncope and collapse (principal); I10 Essential (primary) hypertension; E66.9 Obesity, unspecified; Z91.041 Radiographic dye allergy status; Z88.5 Allergy status to narcotic agent; Z68.31 Body mass index [BMI] 31.0-31.9, adult; Z72.0 Tobacco use; Z79.899 Other long term (current) drug therapy
CPT/HCPCS: 99283

== ENCOUNTER 2021-04-18 14:50 | Emergency (ER) | payer MEDICAID | END 2021-04-18 15:23 | disposition left against medical advice (07) | LOC: JP.ED 14:50 | DX: Z53.21 Procedure and treatment not carried out due to patient leaving prior to being seen by health care provider (principal) ==

== ENCOUNTER 2021-09-26 21:59 | Emergency (ER) | payer MEDICAID ==
[2021-09-26] MEDS ORDERED: LORazepam 2 MG/ML SDV IM ONE (22:02)
[2021-09-26] MEDS ORDERED: LORazepam 2 MG/ML SDV IVPUSH ONE (22:07)
[2021-09-26] MEDS ORDERED: Ketorolac 30 MG/ML SDV IVPUSH ONE (23:37)
[2021-09-26] MEDS ORDERED: HYDROmorphone 0.5 MG/0.5 ML Syringe IVPUSH ONE (23:40)
[2021-09-26] MEDS ORDERED: Acetaminophen 500 MG Tab PO ONE (23:41)
== END 2021-09-27 00:55 | disposition home or self-care (01) ==
LOC: JP.ED 21:59
DX: R56.9 Unspecified convulsions (principal); G44.209 Tension-type headache, unspecified, not intractable; N17.9 Acute kidney failure, unspecified; I10 Essential (primary) hypertension; E66.9 Obesity, unspecified; Z68.29 Body mass index [BMI] 29.0-29.9, adult; Z91.041 Radiographic dye allergy status; Z88.8 Allergy status to other drugs, medicaments and biological substances
CPT/HCPCS: 36415; 70450; 80053; 81001; 83605; 85025; 86140; 96374; 96375; 99283; 99285-25; A9270-GY; J1170; J2060

== ENCOUNTER 2021-10-21 18:16 | Emergency (ER) | payer MEDICAID ==
[2021-10-21] MEDS ORDERED: Ketorolac 30 MG/ML SDV IM ONE ×2 (19:57→20:12)
== END 2021-10-21 20:26 | disposition home or self-care (01) ==
LOC: JP.ED 18:16
DX: G40.909 Epilepsy, unspecified, not intractable, without status epilepticus (principal); R51.9 Headache, unspecified; I10 Essential (primary) hypertension; E66.9 Obesity, unspecified; Z68.32 Body mass index [BMI] 32.0-32.9, adult; Z91.041 Radiographic dye allergy status; Z88.8 Allergy status to other drugs, medicaments and biological substances; Z72.0 Tobacco use
CPT/HCPCS: 36415; 70450; 80053; 80305-QW; 81001; 83605; 85025; 96372; 99284; 99285-25; J1885